=== PATIENT | male | born 1950 | race Caucasian/White ===

== ENCOUNTER → 2016-12-01 | Outpatient (CLI) | payer MEDICARE ==
[~2016-12-01] MED LIST: ALBU83IN INH; ASPI1TAB PO; DILA100C PO; DOCU10CA PO; DUONSOL INH; FLOM5CAP PO; IPRASOL4 IN; MOTR200T44 PO; MUCI600T34 PO; NYST50SS SS; OMNICEF PO; PRED10TA PO; PRED20TA PO; PRED20TAB PO; PROS5TAB PO; RANI15TA PO; TYLE325T5 PO; VALI10TA PO; VITA100037 PO; albuterol sulfate INH; albuterol sulfate NEB; symbicort INH; talwin PO
--- NOTE | 2016-12-01 10:22 | REP ---
ULTRASOUND ABDOMINAL AORTA: Real-time sonographic evaluation of the abdominal aorta performed. Maximum AP diameter proximally just below the diaphragms is 1.9 cm, at the level of the renal arteries 2.0 cm, mid aspect 2.6 cm and distally just above the bifurcation 1.5 cm. Right common iliac artery measures 0.9 x 1.5 cm, as does the left common iliac artery. There is moderate atherosclerotic calcification of the abdominal aorta. IMPRESSION: Ectasia of the mid to distal abdominal aorta without evidence of aneurysm. Atherosclerotic calcifications. Signed by Jeffrey Renteria MD 12/02/2016 04:35 P
== END ==
LOC: M RAD 08:50
PROVIDERS: ATTEND Family Medicine
DX: Z72.0 Tobacco use (principal)

== ENCOUNTER → 2017-02-22 | Outpatient (CLI) | payer MEDICARE ==
--- NOTE | 2017-02-22 10:54 | REP ---
Chest two views HISTORY: COPD Comparison: 01/28/2016 The lungs are hyperinflated. A diffuse increase in interstitial markings is present in the lungs. The heart is normal in size. The pulmonary vasculature is normal in appearance. The bony structure is intact. IMPRESSION: Chronic interstitial fibrosis.
== END ==
LOC: M CLY 10:00
PROVIDERS: ATTEND Nurse Practitioner
DX: J44.1 Chronic obstructive pulmonary disease with (acute) exacerbation (principal); J98.4 Other disorders of lung

== ENCOUNTER 2017-05-15 14:11 | Emergency (ER) | payer MEDICARE ==
[~2017-05-15] VITALS: Ht 175.3 cm; Wt 75.0 kg
[~2017-05-15 14:11] MED LIST changes: -MUCI600T34 PO; +MUCI600T37 PO; -VITA100037 PO; +VITA100067 PO
[2017-05-15 14:43] LABS: BASO # 0.1 K/mm3 (0.0-0.2); BASO % 1.1 % (0.0-1.0); EOS # 0.1 K/mm3 (0.0-0.50); EOS % 1.3 % (0.0-3.0); LARGE UNSTAINED CELL # 0.2 K/mm3 (0.0-0.4); LARGE UNSTAINED CELL % 2.2 % (0.0-4.0); LYMPH # 1.2 K/mm3 (1.5-4.5); LYMPH % 13.7 % (24.0-44.0); MEAN CORPUSCULAR HEMOGLOBIN 32.2 pg (27.0-33.0); MEAN CORPUSCULAR HGB CONC 34.7 g/dl (32.0-36.5); MEAN CORPUSCULAR VOLUME 92.6 fl (80.0-96.0); MONO # 0.6 K/mm3 (0.0-0.8); MONO % 7.3 % (0.0-5.0); NEUTROPHILS # 6.3 K/mm3 (1.8-7.7); NEUTROPHILS % 74.4 % (36.0-66.0); PLATELET COUNT, AUTOMATED 267 k/mm3 (150-450); RED CELL DISTRIBUTION WIDTH 12.9 % (11.5-14.5); WHITE BLOOD COUNT 8.4 K/mm3 (4.0-10.0)
[2017-05-15 14:46] LABS: INR 0.95
[2017-05-15] MEDS ORDERED: IPRATROPIUM 0.5MG/ALBUTEROL 2.5MG INH SOL UD 3ML (DUONEB)(J7620) NEB ONE (15:00)
[2017-05-15] MEDS ORDERED: ASPIRIN 81 MG CHEW TABLET PO ONE (15:00)
[2017-05-15 15:10] LABS: ALBUMIN 3.6 GM/DL (3.2-5.2); ALBUMIN/GLOBULIN RATIO 0.86 (1.00-1.93); ALKALINE PHOSPHATASE 148 U/L (45-117); ALT/SGPT 154 U/L (12-78); ANION GAP 8 MEQ/L (8-16); AST/SGOT 253 U/L (15-37); BILIRUBIN,DIRECT 0.2 MG/DL (0.0-0.2); BILIRUBIN,TOTAL 0.7 MG/DL (0.2-1.0); BLOOD UREA NITROGEN 13 MG/DL (7-18); CALCIUM LEVEL 9.2 MG/DL (8.8-10.2); CARBON DIOXIDE LEVEL 26 MEQ/L (21-32); CHLORIDE LEVEL 105 MEQ/L (98-107); CREATININE FOR GFR 0.87 MG/DL (0.70-1.30); FREE T4 1.26 NG/DL (0.76-1.46); GLOMERULAR FILTRATION RATE > 60.0 (>49); GLUCOSE, FASTING 151 MG/DL (80-110); POTASSIUM SERUM 4.7 MEQ/L (3.5-5.1); SODIUM LEVEL 139 MEQ/L (136-145); TOTAL PROTEIN 7.8 GM/DL (6.4-8.2)
[2017-05-15] MEDS: NITROGLYCERIN 0.4 MG SUBL TABLET SL PRN ×2 (15:14→15:20)
[2017-05-15 15:20] VITALS: BP 107/57
[2017-05-15] MEDS ORDERED: NS 500 ML IV ONE (15:30)
[2017-05-15] MEDS ORDERED: ISOVUE-370 76% 100ML VIAL (Q9967) As Ordered ONE (15:39)
[2017-05-15 16:09] VITALS: BP 139/92
[2017-05-15] MEDS ORDERED: CLOPIDOGREL 300 MG TAB (PLAVIX) PO ONE (16:15)
[2017-05-15] MEDS ORDERED: HEPARIN SOD (PORCINE) 5000 UNITS/ML VIAL IV ONE (16:30)
[2017-05-15] MEDS ORDERED: MORPHINE 2 MG/ML 1ML SYRINGE IV ONE (16:30)
[2017-05-15] MEDS ORDERED: HEPARIN DRIP 25,000 UNITS in APPROPRIATE DILUENT 1 EA IV SCH (16:45)
--- NOTE | 2017-05-16 11:51 | REP ---
CT CHEST WITH CONTRAST: HISTORY: Chest pain 3 weeks after a fall. Comparison chest CT study September 02, 2014. CT CONTRAST DOSE: 95 mL of Isovue 370 is administered intravenously. There is no evidence of pneumothorax or hydrothorax. The mediastinum shows no evidence of hematoma. The thoracic aorta shows atherosclerotic calcification and some plaquing but no aneurysm or dissection. Pulmonary arterial tree is unremarkable. The lungs are somewhat hyperinflated but clear. No infiltrate is seen. Oligemia is seen in the lower lobes bilaterally consistent with some degree of COPD. No pulmonary nodule, mass or infiltrate is seen. There is minimal linear fibrosis in the right lower lobe. Opaque gallstones are noted in the gallbladder. There is a gibbous deformity in the upper thoracic spine related to a wedge compression fracture deformity at the 4th thoracic vertebrae. This is an old finding and is unchanged from August 2014 prior study. There is retropulsion associated with this and mild narrowing of the central canal as a result but this is unchanged as well. No acute bony destructive lesion is seen. No acute rib fracture or other fracture is seen. IMPRESSION: 1. Evidence of COPD with oligemia and hyperlucency in the lower lobes. 2. Old wedge compression deformity at T4 with a thoracic gibbous as a result are unchanged. 3. No acute fracture. 4. Cholelithiasis 5. Otherwise no acute abnormality. Signed by Reji Auguste MD 05/16/2017 12:37 P
--- NOTE | 2017-05-16 12:03 | REP ---
LEFT SHOULDER: Three views. HISTORY: Left shoulder pain after fall. FINDINGS: There is AC joint osteoarthritis and mild inferior glenoid spurring is seen. There is dystrophic soft-tissue calcification in the periarticular soft tissues in the region of the rotator cuff consistent with calcific tendonitis or bursitis. No fracture or subluxation is seen. IMPRESSION: No traumatic abnormality noted. Osteoarthritis and periarticular soft-tissue calcification seen consistent with calcific tendonitis or bursitis. Signed by Reji Auguste MD 05/16/2017 12:38 P
--- NOTE | 2017-05-16 12:30 | REP ---
PORTABLE CHEST X-RAY: Single view. HISTORY: Chest pain. Comparison chest x-ray February 22, 2017. FINDINGS: The lungs are hyperinflated and remain clear. Cardiomediastinal silhouette is unremarkable. EKG electrodes are seen. Pulmonary vasculature is not increased. IMPRESSION: Hyperinflation consistent with COPD. Otherwise no acute disease. Signed by Reji Auguste MD 05/16/2017 12:40 P
--- NOTE | 2017-05-16 19:37 | ECGEPIP ---
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
== END 2017-05-15 17:02 | disposition short-term general hospital (02) ==
LOC: M ED 14:11
DX: I21.4 Non-ST elevation (NSTEMI) myocardial infarction (principal); J44.9 Chronic obstructive pulmonary disease, unspecified; Z72.0 Tobacco use; E78.00 Pure hypercholesterolemia, unspecified; F41.9 Anxiety disorder, unspecified; R56.9 Unspecified convulsions; R05 Cough; R06.2 Wheezing
CPT/HCPCS: 71010; 71260; 73030; 80048; 80076; 80185; 82550; 82553; 83690; 83880; 84439; 84443; 84484; 85025; 85610; 85730; 93005; 93041; 94640; 94760; 96361; 96374; 96375; 99285; Q9967

== ENCOUNTER → 2017-05-25 | Outpatient (REF) | payer MEDICARE ==
[2017-05-25 16:50] LABS: ANION GAP 8 MEQ/L (8-16); BLOOD UREA NITROGEN 19 MG/DL (7-18); CALCIUM LEVEL 9.7 MG/DL (8.8-10.2); CARBON DIOXIDE LEVEL 28 MEQ/L (21-32); CHLORIDE LEVEL 104 MEQ/L (98-107); CHOLESTEROL LEVEL 115 MG/DL (<200); CREATININE FOR GFR 1.07 MG/DL (0.70-1.30); GLOMERULAR FILTRATION RATE > 60.0 (>49); GLUCOSE, FASTING 150 MG/DL (80-110); POTASSIUM SERUM 4.7 MEQ/L (3.5-5.1); SODIUM LEVEL 140 MEQ/L (136-145); TRIGLYCERIDES LEVEL 95 MG/DL (<150)
== END ==
LOC: M SFHCCLAY 10:59
PROVIDERS: ATTEND Family Medicine
DX: I25.10 Atherosclerotic heart disease of native coronary artery without angina pectoris (principal); E78.00 Pure hypercholesterolemia, unspecified

== ENCOUNTER → 2017-06-08 | Outpatient (REF) | payer MEDICARE ==
[2017-06-08 12:09] LABS: ALBUMIN 3.5 GM/DL (3.2-5.2); ALKALINE PHOSPHATASE 124 U/L (45-117); ALT/SGPT 89 U/L (12-78); ANION GAP 10 MEQ/L (8-16); AST/SGOT 59 U/L (15-37); BILIRUBIN,TOTAL 0.4 MG/DL (0.2-1.0); BLOOD UREA NITROGEN 20 MG/DL (7-18); CARBON DIOXIDE LEVEL 28 MEQ/L (21-32); CHLORIDE LEVEL 104 MEQ/L (98-107); CREATININE FOR GFR 0.97 MG/DL (0.70-1.30); GLOMERULAR FILTRATION RATE > 60.0 (>49); GLUCOSE, FASTING 112 MG/DL (80-110); POTASSIUM SERUM 4.3 MEQ/L (3.5-5.1); SODIUM LEVEL 142 MEQ/L (136-145)
== END ==
LOC: M SFHCCLAY 09:06
PROVIDERS: ATTEND Family Medicine
DX: E78.00 Pure hypercholesterolemia, unspecified (principal); I25.10 Atherosclerotic heart disease of native coronary artery without angina pectoris

== ENCOUNTER 2017-06-13 09:48 | Outpatient (RCR) | payer MEDICARE | END 2017-06-25 | LOC: M PT 09:48 | PROVIDERS: ATTEND Physician Assistant Medical | DX: Z51.89 Encounter for other specified aftercare (principal); M79.669 Pain in unspecified lower leg | CPT/HCPCS: 97110; 97161; G8978; G8979; G8980 ==

== ENCOUNTER 2017-06-24 10:59 | Outpatient (RCR) | payer MEDICARE | END 2017-06-25 | LOC: M CR 10:59 | PROVIDERS: ATTEND Internal Medicine Cardiovascular Disease | DX: Z51.89 Encounter for other specified aftercare (principal); I21.4 Non-ST elevation (NSTEMI) myocardial infarction; I25.10 Atherosclerotic heart disease of native coronary artery without angina pectoris ==

== ENCOUNTER → 2017-07-06 | Outpatient (REF) | payer MEDICARE ==
[2017-07-06 13:16] LABS: ALBUMIN 3.5 GM/DL (3.2-5.2); ALBUMIN/GLOBULIN RATIO 1.09 (1.00-1.93); BILIRUBIN,DIRECT 0.2 MG/DL (0.0-0.2); BILIRUBIN,TOTAL 0.5 MG/DL (0.2-1.0); TOTAL PROTEIN 6.7 GM/DL (6.4-8.2)
== END ==
LOC: M SFHCCLAY 08:39
PROVIDERS: ATTEND Nurse Practitioner Family
DX: E78.00 Pure hypercholesterolemia, unspecified (principal)

== ENCOUNTER 2017-08-12 10:19 | Outpatient (RCR) | payer MEDICARE | END 2017-08-25 | LOC: M CR 10:19 | PROVIDERS: ATTEND Internal Medicine Cardiovascular Disease | DX: I21.4 Non-ST elevation (NSTEMI) myocardial infarction (principal); I25.10 Atherosclerotic heart disease of native coronary artery without angina pectoris ==

== ENCOUNTER → 2018-01-23 | Outpatient (REF) | payer MEDICARE ==
[2018-01-23 12:21] LABS: ALBUMIN 3.3 GM/DL (3.2-5.2); ALBUMIN/GLOBULIN RATIO 0.94 (1.00-1.93); ALKALINE PHOSPHATASE 155 U/L (45-117); ALT/SGPT 124 U/L (12-78); ANION GAP 6 MEQ/L (8-16); AST/SGOT 97 U/L (7-37); BILIRUBIN,TOTAL 0.5 MG/DL (0.2-1.0); BLOOD UREA NITROGEN 21 MG/DL (7-18); CALCIUM LEVEL 8.8 MG/DL (8.8-10.2); CARBON DIOXIDE LEVEL 28 MEQ/L (21-32); CHLORIDE LEVEL 108 MEQ/L (98-107); CHOLESTEROL LEVEL 109 MG/DL (<200); CHOLESTEROL RISK RATIO 3.406 (<5); GLOMERULAR FILTRATION RATE > 60.0 (>49); GLUCOSE, FASTING 117 MG/DL (70-100); HDL CHOLESTEROL 32 MG/DL (>40); LDL CHOLESTEROL 49.2 MG/DL (<100); NON-HDL-C 77 MG/DL; POTASSIUM SERUM 4.3 MEQ/L (3.5-5.1); SODIUM LEVEL 142 MEQ/L (136-145); TOTAL PROTEIN 6.8 GM/DL (6.4-8.2); TRIGLYCERIDES LEVEL 139 MG/DL (<150)
== END ==
LOC: M SFHCCLAY 09:23
DX: I25.10 Atherosclerotic heart disease of native coronary artery without angina pectoris (principal); E78.00 Pure hypercholesterolemia, unspecified
CPT/HCPCS: 80053

== ENCOUNTER → 2018-01-23 | Outpatient (REF) | payer MEDICARE | LOC: M LAB REF 11:53 | DX: J44.1 Chronic obstructive pulmonary disease with (acute) exacerbation (principal) | CPT/HCPCS: 87186; 87205 ==

== ENCOUNTER → 2018-10-30 | Outpatient (REF) | payer MEDICARE ==
[~2018-10-30] MED LIST changes: +FLOM0.4C39 PO; -FLOM5CAP PO; +IPRA0.00 IN; -IPRASOL4 IN
[2018-10-31 11:52] LABS: ALBUMIN 3.8 GM/DL (3.2-5.2); ALT/SGPT 108 U/L (12-78); BILIRUBIN,TOTAL 0.6 MG/DL (0.2-1.0); BLOOD UREA NITROGEN 13 MG/DL (7-18); CALCIUM LEVEL 9.1 MG/DL (8.8-10.2); CARBON DIOXIDE LEVEL 30 MEQ/L (21-32); CHLORIDE LEVEL 103 MEQ/L (98-107); CHOLESTEROL LEVEL 119 MG/DL (<200); CHOLESTEROL RISK RATIO 3.216 (<5); CREATININE FOR GFR 0.86 MG/DL (0.70-1.30); GLOMERULAR FILTRATION RATE > 60.0 (>49); GLUCOSE, FASTING 113 MG/DL (70-100); HDL CHOLESTEROL 37 MG/DL (>40); LDL CHOLESTEROL 62 MG/DL (<100); NON-HDL-C 82 MG/DL; POTASSIUM SERUM 4.4 MEQ/L (3.5-5.1); SODIUM LEVEL 138 MEQ/L (136-145); TOTAL PROTEIN 7.2 GM/DL (6.4-8.2); TRIGLYCERIDES LEVEL 100 MG/DL (<150)
== END ==
LOC: M SFHCCLAY 13:58
PROVIDERS: ATTEND Family Medicine
DX: I25.10 Atherosclerotic heart disease of native coronary artery without angina pectoris (principal); E78.00 Pure hypercholesterolemia, unspecified

== ENCOUNTER → 2018-12-06 | Outpatient (CLI) | payer MEDICARE | LOC: M SMT 10:42 | PROVIDERS: ATTEND Internal Medicine Cardiovascular Disease | DX: R07.9 Chest pain, unspecified (principal); I25.10 Atherosclerotic heart disease of native coronary artery without angina pectoris ==

== ENCOUNTER → 2019-01-01 | Outpatient (CLI) | payer MEDICARE ==
[~2019-01-01] MED LIST changes: -ASPI1TAB PO; +ASPI81TA26 PO; +PRED-351 PO; -PRED10TA PO
--- NOTE | 2019-01-01 15:51 | REP ---
CHEST, TWO VIEWS: PA and lateral views of the chest are performed and compared to prior studies dating back to 02/22/2017. There is scattered interstitial fibrotic change with mild hyperinflation. There is no acute infiltrate. Heart is normal in size. There is mild calcification and tortuosity of the thoracic aorta. Mediastinal silhouette is unchanged. There are degenerative changes of the spine. IMPRESSION: Mild diffuse interstitial fibrosis and hyperinflation. No acute infiltrate. If there is continued clinical concern, recommend CT of the chest to rule out occult lesion. Electronically Signed by Jeffrey Renteria MD 01/01/2019 06:20 P
== END ==
LOC: M SMT 11:18
PROVIDERS: ATTEND Internal Medicine Pulmonary Disease
DX: J84.10 Pulmonary fibrosis, unspecified (principal); R91.8 Other nonspecific abnormal finding of lung field

== ENCOUNTER → 2019-01-15 | Outpatient (CLI) | payer MEDICARE ==
[2019-01-15 18:18] LABS: BLOOD UREA NITROGEN 15 MG/DL (7-18); CREATININE FOR GFR 0.84 MG/DL (0.70-1.30); GLOMERULAR FILTRATION RATE > 60.0 (>49)
== END ==
LOC: M SMT 12:07
PROVIDERS: ATTEND Internal Medicine Pulmonary Disease
DX: Z01.812 Encounter for preprocedural laboratory examination (principal)

== ENCOUNTER → 2019-01-17 | Outpatient (CLI) | payer MEDICARE ==
[~2019-01-17] MED LIST changes: +ISOVUE-370 76% 100ML VIAL (Q9967) As Ordered ONE
--- NOTE | 2019-01-17 16:53 | REP ---
CT pulmonary angiogram: With IV contrast. History: Hemoptysis. Comparison studies: Comparison CT study May 15, 2017. Contrast dose: 75 ML of Isovue [address] technique: Helical scanning is acquired and overlapping 1.5 mm and contiguous 3 mm axial images are reformatted. In addition, maximum intensity projection and multiplanar re-formation images are generated in sagittal and coronal imaging projections. CT pulmonary angiographic findings: There is good opacification of the pulmonary arterial tree and there is no CT evidence of pulmonary embolism. Thoracic aorta shows no evidence of aneurysm or dissection. There is no hilar or mediastinal mass or adenopathy. No pleural or pericardial effusion is appreciated. Emphysematous changes with hyperlucency and oligemia are again noted in the lower lobes particularly. Right more so than left unchanged. There are scattered granulomatous calcifications in the lung parenchyma. No significant pulmonary nodule or mass lesion is appreciated. The there are some scattered areas of bronchial wall thickening consistent with bronchitis. There are linear fibrotic changes in the bases bilaterally. No bony destructive lesion is seen. An upper thoracic gibbous deformity is again seen about the compressed T4 vertebral body unchanged. Large gallstones are noted in the gallbladder as before. There are granulomatous calcifications in the spleen. No adrenal lesion is observed. Impression: No CT evidence of pulmonary embolus. Some areas of bronchial wall cuffing consistent with bronchitis. Emphysema COPD pattern is again seen unchanged. Granulomatous calcifications are noted as before. Gallstones are seen. Old upper thoracic gibbous associated with T4 wedge compression deformity. Electronically Signed by Reji Auguste MD 01/18/2019 08:56 A
== END ==
LOC: M RAD 14:46
PROVIDERS: ATTEND Internal Medicine Pulmonary Disease
DX: R04.2 Hemoptysis (principal); J44.9 Chronic obstructive pulmonary disease, unspecified
CPT/HCPCS: 71275; Q9967

== ENCOUNTER → 2019-05-02 | Outpatient (REF) | payer MEDICARE ==
[~2019-05-02] MED LIST changes: -ISOVUE-370 76% 100ML VIAL (Q9967) As Ordered ONE
[2019-05-03 13:59] LABS: BASO # 0.1 10^3/uL (0.0-0.2); BASO % 0.7 % (0.0-1.0); EOS # 0.2 10^3/uL (0.0-0.50); EOS % 2.2 % (0.0-3.0); HEMATOCRIT 46.8 % (42.0-52.0); HEMOGLOBIN 15.7 g/dl (13.5-17.5); LYMPH # 1.8 10^3/uL (1.5-4.5); LYMPH % 20.2 % (24.0-44.0); MEAN CORPUSCULAR HEMOGLOBIN 30.8 pg (27.0-33.0); MEAN CORPUSCULAR HGB CONC 33.5 g/dl (32.0-36.5); MEAN CORPUSCULAR VOLUME 91.9 fl (80.0-96.0); MONO # 0.8 10^3/uL (0.0-0.8); MONO % 9.3 % (0.0-5.0); NEUTROPHILS # 6.1 10^3/uL (1.8-7.7); NEUTROPHILS % 67.4 % (36.0-66.0); PLATELET COUNT, AUTOMATED 191 10^3/uL (150-450); RED BLOOD COUNT 5.09 10^6/uL (4.30-6.10)
[2019-05-03 14:22] LABS: ALBUMIN 3.6 GM/DL (3.2-5.2); ALT/SGPT 110 U/L (12-78); BILIRUBIN,TOTAL 0.5 MG/DL (0.2-1.0); BLOOD UREA NITROGEN 19 MG/DL (7-18); CALCIUM LEVEL 9.4 MG/DL (8.8-10.2); CARBON DIOXIDE LEVEL 30 MEQ/L (21-32); CHLORIDE LEVEL 104 MEQ/L (98-107); CREATININE FOR GFR 0.76 MG/DL (0.70-1.30); GLOMERULAR FILTRATION RATE > 60.0 (>49); GLUCOSE, FASTING 94 MG/DL (70-100); PHENYTOIN (DILANTIN) 5.2 UG/ML (10.0-20.0); POTASSIUM SERUM 5.5 MEQ/L (3.5-5.1); SODIUM LEVEL 138 MEQ/L (136-145); TOTAL PROTEIN 6.9 GM/DL (6.4-8.2)
== END ==
LOC: M SFHCCLAY 14:28
PROVIDERS: ATTEND Family Medicine
DX: G40.909 Epilepsy, unspecified, not intractable, without status epilepticus (principal)

== ENCOUNTER → 2019-06-04 | Outpatient (CLI) | payer MEDICARE ==
[~2019-06-04] MED LIST changes: +ISOVUE-370 76% 100ML VIAL (Q9967) As Ordered ONE
--- NOTE | 2019-06-04 13:54 | REP ---
CT of the head without and with contrast Indication: Vertigo. Comparison: None Technique: Axial CT of the head was performed without contrast. Following the uneventful intravenous administration of 75 ml Isovue 370, axial CT of the head was performed with contrast. Findings: There is scalp thickening at the vertex on the left posteriorly. There is no calvarial fracture. There is no evidence of acute intracranial hemorrhage or extra-axial fluid collection. Renteria-white matter differentiation is maintained. There are calcifications of the cavernous carotid arteries. There is no mass effect or midline shift. The basal cisterns are patent. There is prominence of the extra-axial spaces, suggestive of cerebral volume loss. There is no hydrocephalus. There is no abnormal enhancement. The visualized paranasal sinuses and mastoid air cells are clear. Note is made of old fracture deformity of the lateral wall of the right orbit, right lamina papyracea and right nasal bone. 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 The left orbit is unremarkable. Impression: No abnormal enhancement to suggest an intracranial mass. No mass effect, acute intracranial hemorrhage or hydrocephalus. Old fracture deformities of the lateral wall right orbit, right nasal bone and the right lamina papyracea and right ocular globe prosthesis. Left posterior scalp thickening. Electronically Signed by Alexandru Hood MD 06/04/2019 01:46 P
== END ==
LOC: M RAD 12:52
PROVIDERS: ATTEND Family Medicine
DX: R42 Dizziness and giddiness (principal)
CPT/HCPCS: 70470; Q9967

== ENCOUNTER → 2019-06-25 | Outpatient (REF) | payer MEDICARE ==
[~2019-06-25] MED LIST changes: +CLOP75TA2; -ISOVUE-370 76% 100ML VIAL (Q9967) As Ordered ONE
[2019-06-25 18:00] LABS: BLOOD UREA NITROGEN 14 MG/DL (7-18); CREATININE FOR GFR 0.94 MG/DL (0.70-1.30); GLOMERULAR FILTRATION RATE > 60.0 (>49)
== END ==
LOC: M LABDRAWC 16:07
PROVIDERS: ATTEND Psychiatry & Neurology Neurology
DX: I10 Essential (primary) hypertension (principal)

== ENCOUNTER → 2019-06-27 | Outpatient (CLI) | payer MEDICARE ==
[~2019-06-27] MED LIST changes: -CLOP75TA2; +ISOVUE-370 76% 100ML VIAL (Q9967) As Ordered ONE
--- NOTE | 2019-06-27 17:00 | REP ---
CT angiography of the brain with IV contrast: History: Central origin vertigo. Comparison head CT study June 04, 2019. CT contrast dose: 100 ml of intravenous Isovue 370 is administered. Technique: Helical scanning is acquired. 2 mm high resolution axial images are reformatted. Coronal and sagittal MPR and MIP images are generated and reviewed along with surface rendered 3-D rotational angiography display. CT angiographic findings: Incidental note is made of old post-traumatic deformity of the right face and orbit. There is an intra orbital ocular globe prosthesis present on the right. These findings were described previously. An old nasal bone fracture is seen. No acute bony calvarial abnormality is observed. The distal vertebral arteries are widely patent. Basilar artery is unremarkable. Posterior cerebral and superior cerebellar arteries are normal and symmetric. The distal internal carotid arteries are unremarkable. Minimal vascular calcification is present bilaterally in the carotid siphons. The anterior and middle cerebral arteries are intact. There is no evidence of grady aneurysm or arteriovenous malformation. Surface rendered images show no additional abnormality. The dural sinuses are unremarkable and widely patent. Impression: Mild vascular calcification in the carotid siphons. Otherwise negative CT angiography of the brain with IV contrast. Electronically Signed by Reji Auguste MD 06/28/2019 07:59 A
--- NOTE | 2019-06-27 17:04 | REP ---
CT angiography of the neck with IV contrast: History: Central origin vertigo. CT contrast dose: 100 ml of intravenous Isovue 370. Technique: Helical scanning is acquired and 2 mm axial images are generated. Coronal and sagittal MIP and MPR images are generated and 3-D surface rendered images are generated and viewed in a rotational pattern. CT angiographic findings: There is atherosclerotic plaquing in the thoracic aorta. The innominate artery origin is excluded from the field of view but great vessel origins are otherwise intact in appearance. Vertebral artery origins are unremarkable. The cervical segments of the vertebral arteries are codominant and widely patent. The distal vertebral arteries are unremarkable. Common carotid arteries are intact. There is no significant plaquing or narrowing in the proximal ICA on either side. The cervical segments of the internal carotid arteries are unremarkable. Maximal intensity projection and MPR images show no additional finding. Surface rendered 3-D images show no additional abnormality. Impression: Unremarkable CT angiography of the neck and carotids. Electronically Signed by Reji Auguste MD 06/28/2019 07:59 A
== END ==
LOC: M RAD 13:01
PROVIDERS: ATTEND Psychiatry & Neurology Neurology
DX: H81.4 Vertigo of central origin (principal); I70.0 Atherosclerosis of aorta
CPT/HCPCS: 70496; 70498; Q9967

== ENCOUNTER 2019-09-18 12:14 | Emergency (ER) | payer MEDICARE ==
[~2019-09-18] VITALS: Ht 177.8 cm; Wt 66.8 kg
[~2019-09-18 12:14] MED LIST changes: -ISOVUE-370 76% 100ML VIAL (Q9967) As Ordered ONE
[2019-09-18] MEDS ORDERED: CLOP75TA2 (12:20)
--- NOTE | 2019-09-18 12:51 | REP ---
Clinical: Chest pain . Comparison: 01/01/2019 . Findings: The mediastinum and cardiac silhouette are stable and within normal limits for portable technique. The lung vazquez demonstrate chronic COPD and interstitial changes without acute consolidation, effusion, or pneumothorax. Skeletal structures are intact. Impression: No acute cardiopulmonary process appreciated. Electronically Signed by Nikhil Henry MD 09/18/2019 12:41 P
[2019-09-18] MEDS ORDERED: dexameTHASONE 20 MG/5 ML VIAL (J1100) IV ONE (13:00)
[2019-09-18 13:23] LABS: VENOUS HCO3 28.7 MEQ/L (23.0-27.0); VENOUS PARTIAL PRESSURE CO2 57.7 mmHg (38.0-50.0); VENOUS PH 7.314 UNITS (7.330-7.430); VENOUS STANDARD HCO3 24.7 MEQ/L; VENOUS TOTAL CO2 30.4 MEQ/L (24.0-28.0)
[2019-09-18 13:26] LABS: BASO # 0.1 10^3/uL (0.0-0.2); BASO % 0.9 % (0.0-1.0); EOS # 0.2 10^3/uL (0.0-0.5); EOS % 3.9 % (0.0-3.0); HEMATOCRIT 45.9 % (42.0-52.0); HEMOGLOBIN 15.1 g/dl (13.5-17.5); LYMPH # 1.5 10^3/uL (1.5-5.0); LYMPH % 24.8 % (24.0-44.0); MEAN CORPUSCULAR HEMOGLOBIN 31.6 pg (27.0-33.0); MEAN CORPUSCULAR HGB CONC 32.9 g/dl (32.0-36.5); MONO # 0.8 10^3/uL (0.0-0.8); MONO % 13.1 % (0.0-5.0); NEUTROPHILS # 3.4 10^3/uL (1.5-8.5); PLATELET COUNT, AUTOMATED 155 10^3/uL (150-450); RED BLOOD COUNT 4.78 10^6/uL (4.30-6.10); WHITE BLOOD COUNT 5.9 10^3/uL (4.0-10.0)
[2019-09-18] MEDS: IPRATROPIUM 0.5MG/ALBUTEROL 2.5MG INH SOL UD 3ML (DUONEB)(J7620) NEB SCH ×3 (13:34→14:42)
[2019-09-18 13:54] LABS: INR 1.08; PROTHROMBIN TIME 13.8 SECONDS (11.8-14.0)
[2019-09-18 13:55] LABS: PARTIAL THROMBOPLASTIN TIME 33.9 SECONDS (25.0-38.4)
[2019-09-18 13:57] LABS: D-DIMER QUANT 808.17 ng/ml (<500)
[2019-09-18 14:03] LABS: ALBUMIN 3.3 GM/DL (3.2-5.2); ALT/SGPT 106 U/L (12-78); BILIRUBIN,DIRECT < 0.1 MG/DL (0.0-0.2); BILIRUBIN,TOTAL 0.3 MG/DL (0.2-1.0); BLOOD UREA NITROGEN 22 MG/DL (7-18); CALCIUM LEVEL 8.9 MG/DL (8.8-10.2); CARBON DIOXIDE LEVEL 26 MEQ/L (21-32); CHLORIDE LEVEL 108 MEQ/L (98-107); CK-MB VALUE MASS 2.5 NG/ML (<3.6); CPK CREATINE PHOSPHOKINASE 140 U/L (39-308); CREATININE FOR GFR 0.83 MG/DL (0.70-1.30); FREE T4 1.11 NG/DL (0.76-1.46); GLOMERULAR FILTRATION RATE > 60.0 (>49); GLUCOSE, FASTING 106 MG/DL (70-100); LIPASE < 10 U/L (73-393); MB/CK RELATIVE INDEX 1.79 (< OR =4); SODIUM LEVEL 141 MEQ/L (136-145); THYROID STIMULATING HORMONE 0.576 uIU/ML (0.358-3.740); TROPONIN I < 0.02 NG/ML (< 0.10)
[2019-09-18 14:06] LABS: POTASSIUM SERUM 5.8 MEQ/L (3.5-5.1)
[2019-09-18] MEDS ORDERED: LevoFLOXacin IV 750 MG in IV 1 EA IV ONE (14:15)
[2019-09-18] MEDS ORDERED: NS 1,000 ML IV ONE (14:15)
[2019-09-18] MEDS ORDERED: ISOVUE-370 76% 100ML VIAL (Q9967) As Ordered ONE (14:42)
--- NOTE | 2019-09-18 15:36 | REP ---
Clinical: Acute chest pain with shortness of breath and elevated D-dimer levels. Comparison: 01/17/2019. Technique: Axial contrast enhanced images from the thoracic inlet to the upper abdomen using 100 ml Isovue 370 intravenous contrast material with coronal and sagittal re-formations. Findings: Satisfactory enhancement of the pulmonary vasculature is achieved and no filling defects are identified to suggest pulmonary embolus. Thoracic aorta demonstrates atherosclerotic changes without aneurysm or dissection. No cardiomegaly or pericardial effusion. Bilateral lung vazquez demonstrate moderate to advanced COPD/emphysematous changes primarily involving the bilateral lower lobes (right greater than left). No acute consolidation. No obvious nodule or mass lesion. No effusion. No pneumothorax. Tracheobronchial tree is patent. No obvious adenopathy. Musculoskeletal structures are stable and chronic compression deformity at T4 causing acute kyphosis is again noted. Limited upper abdomen demonstrates normal bilateral adrenal glands and cholelithiasis. Impression: No evidence for pulmonary embolus. Advanced COPD/emphysematous disease. No acute pleuroparenchymal process appreciated. Electronically Signed by Nikhil Henry MD 09/18/2019 03:27 P
[2019-09-18] MEDS ORDERED: KETOROLAC 30 MG/ML VIAL (J1885) IV ONE (16:15)
[2019-09-18] MEDS ORDERED: PRED20TA PO (17:55)
[2019-09-18] MEDS ORDERED: predniSONE 20 MG TAB PO ONE (18:00)
[2019-09-18 18:02] VITALS: BP 153/73
--- NOTE | 2019-09-18 20:31 | ECGEPIP ---
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
== END 2019-09-18 18:15 | disposition home or self-care (01) ==
LOC: M ED 12:14
DX: J44.1 Chronic obstructive pulmonary disease with (acute) exacerbation (principal); K21.9 Gastro-esophageal reflux disease without esophagitis; Z79.51 Long term (current) use of inhaled steroids; Z79.82 Long term (current) use of aspirin; Z79.899 Other long term (current) drug therapy; Z88.1 Allergy status to other antibiotic agents; Z88.5 Allergy status to narcotic agent; Z88.8 Allergy status to other drugs, medicaments and biological substances
CPT/HCPCS: 36415; 71045; 71275; 80048; 80076; 82550; 82553; 82803; 83605; 83690; 84439; 84443; 84484; 85025; 85379; 85610; 85730; 87040; 93005; 93041; 94640; 96365; 96366; 96375; 99285; J1100; J1885; J1956; Q9967

== ENCOUNTER → 2019-12-12 | Outpatient (REF) | payer MEDICARE ==
[~2019-12-12] MED LIST changes: +CLOP75TA2
== END ==
LOC: M SFHCCLAY 14:55
PROVIDERS: ATTEND Family Medicine
DX: J44.1 Chronic obstructive pulmonary disease with (acute) exacerbation (principal)
CPT/HCPCS: 87070; 87077; 87205; G0463

== ENCOUNTER → 2020-02-08 | Outpatient (REF) | payer MEDICARE | LOC: M SFHCCLAY 13:34 | PROVIDERS: ATTEND Family Medicine | DX: R05 Cough (principal); Z11.59 Encounter for screening for other viral diseases ==

== ENCOUNTER → 2020-02-08 | Outpatient (CLI) | payer MEDICARE | LOC: M CLY 14:25 | PROVIDERS: ATTEND Family Medicine | DX: J44.9 Chronic obstructive pulmonary disease, unspecified (principal) ==

== ENCOUNTER → 2020-02-08 | Outpatient (CLI) | payer MEDICARE ==
--- NOTE | 2020-02-08 16:53 | REP ---
CHEST, TWO VIEWS: Two views of the chest are performed and compared to prior studies, most recently 09/18/2019 and 01/01/2019. There is mild hyperinflation and diffuse interstitial fibrosis, which appears stable. No acute infiltrate is seen. Heart is normal in size, and there is mild calcification of the thoracic aorta. Mediastinal silhouette is unchanged. There is diffuse osteopenia and mild degenerative changes of the spine. A severe compression deformity of an upper thoracic vertebral body is stable with mild acute thoracic kyphosis at that level. IMPRESSION: Stable, chronic changes, as above. Electronically Signed by Jeffrey Renteria MD 02/08/2020 04:57 P
== END ==
LOC: M CLY 14:32
PROVIDERS: ATTEND Family Medicine
DX: J44.9 Chronic obstructive pulmonary disease, unspecified (principal); M85.88 Other specified disorders of bone density and structure, other site

== ENCOUNTER → 2020-02-11 | Outpatient (CLI) | payer MEDICARE ==
--- NOTE | 2020-02-11 17:22 | REP ---
REASON: Tobacco abuse. All prior CT examinations of the chest have been reviewed dating as far back as 09/02/2014. Latest prior examination is from 09/18/2019. That examination is a contrast-enhanced CT angio chest. As per the protocol, only lung window images were sent to the read station for interpretation. Note is again made of lung field hyperexpansion. Note is again made of an incidental calcified granuloma in the inferior lingula. 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 This too appears unchanged. Limited evaluation of the mediastinum and pulmonary gema show no significant change. Limited evaluation of the upper abdomen and imaged osseous structures show no significant changes. There is a small amount of mucoid debris seen in the left main bronchus, likely mucus. This was seen to a much lesser degree in the posterior trachea. IMPRESSION: Chronic changes as described above. No significant change from the prior exams. Lung-RADS category 2. Electronically Signed by Don Roman DO 02/12/2020 02:25 P
== END ==
LOC: M RAD 15:08
PROVIDERS: ATTEND Internal Medicine Pulmonary Disease
DX: Z12.2 Encounter for screening for malignant neoplasm of respiratory organs (principal); F17.210 Nicotine dependence, cigarettes, uncomplicated; J44.9 Chronic obstructive pulmonary disease, unspecified; J84.10 Pulmonary fibrosis, unspecified

== ENCOUNTER → 2020-02-13 | Outpatient (REF) | payer MEDICARE ==
[2020-02-14 12:29] LABS: ALBUMIN 3.7 GM/DL (3.2-5.2); ALT/SGPT 139 U/L (12-78); BILIRUBIN,TOTAL 0.8 MG/DL (0.2-1.0); BLOOD UREA NITROGEN 27 MG/DL (7-18); CALCIUM LEVEL 9.5 MG/DL (8.8-10.2); CARBON DIOXIDE LEVEL 29 MEQ/L (21-32); CHLORIDE LEVEL 101 MEQ/L (98-107); CHOLESTEROL LEVEL 141 MG/DL (<200); CHOLESTEROL RISK RATIO 2.274 (<5); CREATININE FOR GFR 0.86 MG/DL (0.70-1.30); GLOMERULAR FILTRATION RATE > 60.0 (>49); GLUCOSE, FASTING 139 MG/DL (70-100); HDL CHOLESTEROL 62 MG/DL (>40); LDL CHOLESTEROL 61 MG/DL (<100); NON-HDL-C 79 MG/DL; PHENYTOIN (DILANTIN) 4.4 UG/ML (10.0-20.0); POTASSIUM SERUM 5.4 MEQ/L (3.5-5.1); SODIUM LEVEL 136 MEQ/L (136-145); TOTAL PROTEIN 7.4 GM/DL (6.4-8.2); TRIGLYCERIDES LEVEL 92 MG/DL (<150)
== END ==
LOC: M SFHCCLAY 14:24
PROVIDERS: ATTEND Family Medicine
DX: G40.909 Epilepsy, unspecified, not intractable, without status epilepticus (principal); I25.10 Atherosclerotic heart disease of native coronary artery without angina pectoris

== ENCOUNTER → 2020-03-17 | Outpatient (CLI) | payer MEDICARE | LOC: M PT 10:53 | PROVIDERS: ATTEND Family Medicine | DX: Z89.612 Acquired absence of left leg above knee (principal) ==

== ENCOUNTER → 2020-11-03 | Outpatient (REF) | payer MEDICARE | LOC: M LAB REF 17:22 | PROVIDERS: ATTEND Internal Medicine Pulmonary Disease | DX: J43.8 Other emphysema (principal) ==

== ENCOUNTER → 2020-12-03 | Outpatient (CLI) | payer MEDICARE ==
--- NOTE | 2020-12-03 10:00 | REPPI ---
INDICATION: J44.9 CHRONOC OBSTRUCTIVE PULMONARY DISEASE COMPARISON: 02/08/2020 TECHNIQUE: PA and lateral. FINDINGS: The mediastinum and cardiac silhouette are normal. The lung vazquez demonstrate chronic stable changes consistent with COPD. The skeletal structures demonstrate osteopenia and degenerative changes. IMPRESSION: COPD. Chronic stable changes. <Electronically signed by Nikhil Henry > 12/03/20 [id number]
== END ==
LOC: M PLAIMG 09:20
PROVIDERS: ATTEND Internal Medicine Pulmonary Disease
DX: J44.9 Chronic obstructive pulmonary disease, unspecified (principal)

== ENCOUNTER → 2020-12-25 | Outpatient (REF) | payer MEDICARE | LOC: M PLALAB 13:16 | PROVIDERS: ATTEND Urology | DX: R39.9 Unspecified symptoms and signs involving the genitourinary system (principal); Z12.5 Encounter for screening for malignant neoplasm of prostate | CPT/HCPCS: 36415; G0103 ==

== ENCOUNTER → 2021-04-15 | Outpatient (CLI) | payer MEDICARE ==
[~2021-04-15] MED LIST changes: +ALBU8.5H INH; +FLUT1BLS8 INH
== END ==
LOC: M LABSMTC 12:29
PROVIDERS: ATTEND Anesthesiology
DX: Z01.812 Encounter for preprocedural laboratory examination (principal); Z20.822 Contact with and (suspected) exposure to COVID-19

== ENCOUNTER 2021-04-20 06:09 | Day surgery (SDC) | payer MEDICARE ==
[~2021-04-20] VITALS: Ht 177.8 cm; Wt 70.7 kg
[2021-04-20] MEDS ORDERED: LIDOCAINE 1% SDV 5ML VIAL As Ordered ONE (06:54)
[2021-04-20] MEDS ORDERED: FLURBIPROFEN 0.03% OPHTH SOLN 2.5 ML OS ONE (07:00)
[2021-04-20] MEDS ORDERED: CYCLOPENTOLATE 1% OPHTH SOLN 2 ML BTL OD ONE (07:00)
[2021-04-20] MEDS ORDERED: LR 1,000 ML IV SCH (07:00)
[2021-04-20] MEDS ORDERED: PHENYLEPHRINE 2.5% OPHTH SOL 2ML OS ONE (07:00)
[2021-04-20] MEDS ORDERED: TETRACAINE 0.5% OPHTH SOLN 4ML OS ONE (07:00)
[2021-04-20] MEDS ORDERED: BALANCED SALT IRRIGATION SOLUTION 500ML BAG (FOR OR EYE MACHINE) As Ordered ONE (07:08)
[2021-04-20] MEDS ORDERED: CYCLOPENTOLATE 1% OPHTH SOLN 2 ML BTL OS ONE (07:20)
[2021-04-20] MEDS ORDERED: MIDAZOLAM INJ 2MG/2ML VIAL (J2250 PER 1MG) As Ordered ONE (08:36)
[2021-04-20] MEDS ORDERED: fentaNYL 100 MCG/2 ML INJECTION As Ordered ONE (08:36)
[2021-04-20 09:02] VITALS: BP 143/74
== END 2021-04-20 09:28 | disposition home or self-care (01) ==
LOC: M SDC 06:09
PROVIDERS: ATTEND Ophthalmology
DX: H25.12 Age-related nuclear cataract, left eye (principal); I10 Essential (primary) hypertension; E78.00 Pure hypercholesterolemia, unspecified; I25.2 Old myocardial infarction; Z95.5 Presence of coronary angioplasty implant and graft; K21.9 Gastro-esophageal reflux disease without esophagitis; M19.90 Unspecified osteoarthritis, unspecified site; Z97.0 Presence of artificial eye; R56.9 Unspecified convulsions; J44.9 Chronic obstructive pulmonary disease, unspecified; G89.21 Chronic pain due to trauma; I25.10 Atherosclerotic heart disease of native coronary artery without angina pectoris; N40.0 Benign prostatic hyperplasia without lower urinary tract symptoms; F17.210 Nicotine dependence, cigarettes, uncomplicated; Z88.1 Allergy status to other antibiotic agents; Z88.5 Allergy status to narcotic agent; Z88.2 Allergy status to sulfonamides; Z79.899 Other long term (current) drug therapy; Z79.02 Long term (current) use of antithrombotics/antiplatelets; Z79.82 Long term (current) use of aspirin; Z79.891 Long term (current) use of opiate analgesic; Z79.52 Long term (current) use of systemic steroids; Z79.51 Long term (current) use of inhaled steroids
CPT/HCPCS: 66984; J2250; J3010; V2632

== ENCOUNTER → 2021-07-30 | Outpatient (CLI) | payer MEDICARE ==
--- NOTE | 2021-07-30 12:05 | REP ---
INDICATION: NICOTINE. COMPARISON: Multiple the latest 02/11/2020 also low-dose screening CT of the lungs TECHNIQUE: Axial noncontrast images from the thoracic inlet to the upper abdomen using low-dose lung screening technique (LDCT). As per the protocol only lung window images were sent to the read station for interpretation. FINDINGS: There are emphysematous changes status quo. There is lung field hyperexpansion status quo. There is cylindrical bronchiectasis status quo. There are no new abnormal nodules. There is a new bandlike density in the inferior right middle lobe abutting the major fissure. IMPRESSION: 1. Stable chronic lung field changes as described above without evidence of a new nodule. 2. New bandlike density in the right middle lobe likely representing fibrotic and/or subsegmental atelectatic change. There is no revised Fleischner society criteria on the recommendation for follow-up of such a finding. Consider short-term follow-up since this represents a change from the prior exams. <Electronically signed by Don Roman > 07/30/21 [id number]
== END ==
LOC: M RAD 10:57
PROVIDERS: ATTEND Internal Medicine Pulmonary Disease
DX: Z87.891 Personal history of nicotine dependence (principal); R91.8 Other nonspecific abnormal finding of lung field

== ENCOUNTER → 2021-09-11 | Outpatient (CLI) | payer MEDICARE | LOC: M CLY 14:21 | PROVIDERS: ATTEND Physician Assistant | DX: R05.9 Cough, unspecified (principal); S22.32XA Fracture of one rib, left side, initial encounter for closed fracture; X58.XXXA Exposure to other specified factors, initial encounter; Y92.9 Unspecified place or not applicable; Y93.9 Activity, unspecified ==

== ENCOUNTER → 2021-09-22 | Outpatient (CLI) | payer MEDICARE | LOC: M CLY 11:01 | PROVIDERS: ATTEND Family Medicine | DX: R05.9 Cough, unspecified (principal); S22.42XA Multiple fractures of ribs, left side, initial encounter for closed fracture ==

== ENCOUNTER → 2022-03-01 | Outpatient (REF) | payer MEDICARE ==
[~2022-03-01] MED LIST changes: +ALBU2.5V10 INH; -ALBU83IN INH
[2022-03-01 16:05] LABS: ALBUMIN 3.1 GM/DL (3.2-5.2); ALT/SGPT 42 U/L (12-78); BILIRUBIN,TOTAL 0.5 MG/DL (0.2-1.0); BLOOD UREA NITROGEN 14 MG/DL (7-18); CALCIUM LEVEL 9.1 MG/DL (8.8-10.2); CARBON DIOXIDE LEVEL 32 MEQ/L (21-32); CHLORIDE LEVEL 104 MEQ/L (98-107); CHOLESTEROL LEVEL 116 MG/DL (<200); CHOLESTEROL RISK RATIO 2.697 (<5); CREATININE FOR GFR 0.98 MG/DL (0.70-1.30); GLOMERULAR FILTRATION RATE > 60.0 (>42); GLUCOSE, FASTING 131 MG/DL (70-100); HDL CHOLESTEROL 43 MG/DL (>40); LDL CHOLESTEROL 49 MG/DL (<100); NON-HDL-C 73 MG/DL; POTASSIUM SERUM 4.1 MEQ/L (3.5-5.1); SODIUM LEVEL 139 MEQ/L (136-145); TOTAL PROTEIN 6.8 GM/DL (6.4-8.2); TRIGLYCERIDES LEVEL 118 MG/DL (<150)
[2022-03-01 16:07] LABS: HEMOGLOBIN 15.9 g/dl (13.5-17.5); MEAN CORPUSCULAR HEMOGLOBIN 30.8 pg (27.0-33.0); MEAN CORPUSCULAR HGB CONC 33.1 g/dl (32.0-36.5); PLATELET COUNT, AUTOMATED 217 10^3/uL (150-450); RED BLOOD COUNT 5.16 10^6/uL (4.30-6.10); WHITE BLOOD COUNT 6.5 10^3/uL (4.0-10.0)
== END ==
LOC: M SFHCCLAY 09:48
PROVIDERS: ATTEND Nurse Practitioner Family
DX: Z00.00 Encounter for general adult medical examination without abnormal findings (principal); E78.00 Pure hypercholesterolemia, unspecified

== ENCOUNTER → 2022-03-01 | Outpatient (CLI) | payer MEDICARE | LOC: M CLY 09:55 | PROVIDERS: ATTEND Nurse Practitioner Family | DX: R29.6 Repeated falls (principal) ==

== ENCOUNTER → 2022-06-09 | Outpatient (REF) | payer MEDICARE ==
[2022-06-09 20:05] LABS: HEMOGLOBIN A1c 5.8 %
== END ==
LOC: M SFHCCLAY 14:11
PROVIDERS: ATTEND Nurse Practitioner Family
DX: Z13.1 Encounter for screening for diabetes mellitus (principal); Z79.899 Other long term (current) drug therapy

== ENCOUNTER → 2022-08-02 | Outpatient (CLI) | payer MEDICARE | LOC: M RAD 13:41 | PROVIDERS: ATTEND Internal Medicine Pulmonary Disease | DX: Z12.2 Encounter for screening for malignant neoplasm of respiratory organs (principal); Z87.891 Personal history of nicotine dependence; R91.8 Other nonspecific abnormal finding of lung field ==

== ENCOUNTER → 2022-09-06 | Outpatient (CLI) | payer MEDICARE | LOC: M PLARAD 08:02 | PROVIDERS: ATTEND Internal Medicine Pulmonary Disease | DX: R91.8 Other nonspecific abnormal finding of lung field (principal) ==

== ENCOUNTER → 2022-10-04 | Outpatient (REF) | payer MEDICARE ==
[~2022-10-04] MED LIST changes: +NYST-38 SS; -NYST50SS SS
[2022-10-04 11:56] LABS: HEMATOCRIT 46.5 % (42.0-52.0); HEMOGLOBIN 15.3 g/dl (13.5-17.5); MEAN CORPUSCULAR HGB CONC 32.9 g/dl (32.0-36.5); MEAN CORPUSCULAR VOLUME 94.3 fl (80.0-96.0); PLATELET COUNT, AUTOMATED 177 10^3/uL (150-450); RED BLOOD COUNT 4.93 10^6/uL (4.30-6.10); WHITE BLOOD COUNT 6.1 10^3/uL (4.0-10.0)
[2022-10-04 12:26] LABS: ALBUMIN 3.5 G/DL (3.2-5.2); ALKALINE PHOSPHATASE 159 U/L (46-116); ALT/SGPT 61 U/L (7.0-40); AST/SGOT 54 U/L (<34); BILIRUBIN,TOTAL 0.3 MG/DL (0.3-1.2); BLOOD UREA NITROGEN 20 MG/DL (9-23); CALCIUM LEVEL 9.4 MG/DL (8.3-10.6); CARBON DIOXIDE LEVEL 30 MMOL/L (20-31); CHLORIDE LEVEL 102 MMOL/L (98-107); CHOLESTEROL LEVEL 115 MG/DL (<200); CHOLESTEROL RISK RATIO 3.02 (<5); CREATININE FOR GFR 0.82 MG/DL (0.70-1.30); GLOMERULAR FILTRATION RATE > 60.0 (>42); GLUCOSE, FASTING 127 MG/DL (74-106); LDL CHOLESTEROL 53.2 MG/DL (<100); NON-HDL-C 77 MG/DL; POTASSIUM SERUM 4.1 MMOL/L (3.5-5.1); SODIUM LEVEL 139 MMOL/L (136-145); TOTAL PROTEIN 7.1 G/DL (5.7-8.2); TRIGLYCERIDES LEVEL 119 MG/DL (<150)
== END ==
LOC: M SFHCCLAY 08:09
PROVIDERS: ATTEND Nurse Practitioner Family
DX: I25.10 Atherosclerotic heart disease of native coronary artery without angina pectoris (principal); E78.00 Pure hypercholesterolemia, unspecified

== ENCOUNTER → 2022-10-06 | Outpatient (CLI) | payer MEDICARE | LOC: M CLY 15:16 | PROVIDERS: ATTEND Nurse Practitioner Family | DX: J44.1 Chronic obstructive pulmonary disease with (acute) exacerbation (principal) ==

== ENCOUNTER 2022-12-11 13:18 | Inpatient (IN) | payer MEDICARE ==
[~2022-12-11] VITALS: Ht 177.8 cm; Wt 70.0 kg
[2022-12-11 14:10] LABS: VENOUS BASE EXCESS 1.3 (-2.0-2.0); VENOUS HCO3 27.3 MEQ/L (23.0-27.0); VENOUS O2 SATURATION 95.9 % (60.0-80.0); VENOUS PARTIAL PRESSURE CO2 47.8 mmHg (38.0-50.0); VENOUS PARTIAL PRESSURE O2 80.9 mmHg (30.0-50.0); VENOUS PH 7.374 UNITS (7.330-7.430); VENOUS STANDARD HCO3 25.5 MEQ/L; VENOUS TOTAL CO2 28.7 MEQ/L (24.0-28.0)
[2022-12-11 14:21] LABS: BASO % 0.4 % (0.0-1.0); EOS % 0.1 % (0.0-3.0); HEMATOCRIT 46.8 % (42.0-52.0); HEMOGLOBIN 15.6 g/dl (13.5-17.5); LYMPH # 1.3 10^3/uL (1.5-5.0); LYMPH % 15.3 % (24.0-44.0); MEAN CORPUSCULAR HEMOGLOBIN 30.9 pg (27.0-33.0); MEAN CORPUSCULAR HGB CONC 33.3 g/dl (32.0-36.5); MEAN CORPUSCULAR VOLUME 92.7 fl (80.0-96.0); MONO # 1.3 10^3/uL (0.0-0.8); MONO % 15.8 % (2.0-8.0); NEUTROPHILS # 5.6 10^3/uL (1.5-8.5); PLATELET COUNT, AUTOMATED 147 10^3/uL (150-450); RED BLOOD COUNT 5.05 10^6/uL (4.30-6.10); WHITE BLOOD COUNT 8.2 10^3/uL (4.0-10.0)
[2022-12-11] MEDS: COMBIVENT RESPIMAT 100-20MCG INHALER 4GM INH SCH ×3 (14:22→14:34)
[2022-12-11 14:50] LABS: RSV AMPLIFICATION NEGATIVE (NEGATIVE)
[2022-12-11 15:58] LABS: ALBUMIN 3.6 G/DL (3.2-5.2); ALKALINE PHOSPHATASE 92 U/L (46-116); AST/SGOT 65 U/L (<34); BILIRUBIN,DIRECT 0.2 MG/DL (<0.4); BILIRUBIN,TOTAL 0.6 MG/DL (0.3-1.2); CALCIUM LEVEL 8.7 MG/DL (8.3-10.6); CARBON DIOXIDE LEVEL 27 MMOL/L (20-31); CHLORIDE LEVEL 100 MMOL/L (98-107); CREATININE FOR GFR 0.72 MG/DL (0.70-1.30); GLOMERULAR FILTRATION RATE > 60.0 (>42); GLUCOSE, FASTING 131 MG/DL (74-106); SODIUM LEVEL 135 MMOL/L (136-145); THYROID STIMULATING HORMONE 0.872 uIU/ML (0.55-4.78)
[2022-12-11 16:00] LABS: ALT/SGPT 39 U/L (7.0-40); BLOOD UREA NITROGEN 17 MG/DL (9-23); CK-MB VALUE MASS 3.5 NG/ML (<3.6); CPK CREATINE PHOSPHOKINASE 211 U/L (46-171); MB/CK RELATIVE INDEX 1.65 (< OR =4); POTASSIUM SERUM 4.7 MMOL/L (3.5-5.1)
[2022-12-11] MEDS ORDERED: VITMTA PO (16:25)
[2022-12-11] MEDS ORDERED: OXYC-517 PO (16:25)
[2022-12-11] MEDS ORDERED: AZIT500T5 PO (16:25)
[2022-12-11] MEDS ORDERED: MOLN200C PO (16:25)
[2022-12-11] MEDS ORDERED: ACET1TAB55 PO (16:25)
[2022-12-11] MEDS ORDERED: ATOR40TA75 PO (16:25)
[2022-12-11] MEDS ORDERED: METO1TAB32 PO (16:25)
[2022-12-11] MEDS ORDERED: IBUP1TAB7 PO (16:25)
[2022-12-11] MEDS ORDERED: RAMI1CAP22 PO (16:25)
[2022-12-11] MEDS ORDERED: FAMO40TA3 PO (16:25)
[2022-12-11] MEDS ORDERED: IPRA0.00 NEB (16:25)
[2022-12-11] MEDS ORDERED: DIAZ10TA2 PO (16:25)
[2022-12-11] MEDS ORDERED: HOME MED LIST COMPLETE! XX SCH (16:30)
[2022-12-11] MEDS ORDERED: guaiFENesin 200 MG TAB PO PRN (17:15)
[2022-12-11] MEDS ORDERED: ACETAMINOPHEN TAB 650MG DOSE (2X325MG) PO PRN (17:15)
[2022-12-11] MEDS ORDERED: ALBUTEROL SULFATE 2.5MG/0.5ML INH NEB SOLN INH PRN (17:15)
[2022-12-11] MEDS ORDERED: diazePAM 10 MG TAB PO PRN (17:15)
[2022-12-11] MEDS ORDERED: IBUPROFEN 800 MG TAB PO PRN (17:15)
[2022-12-11 17:50] VITALS: BP 158/82
[2022-12-11] MEDS: NS 1,000 ML IV SCH (18:52)
[2022-12-11] MEDS: methylPREDNISolone 40MG 1ML VIAL IV SCH (18:52)
[2022-12-11] MEDS: AZITHROMYCIN 250MG TABLET PO SCH (19:44)
[2022-12-11] MEDS: IPRATROPIUM 0.5MG/ALBUTEROL 2.5MG INH SOL UD 3ML (DUONEB) NEB SCH ×2 (20:00→21:18)
[2022-12-11] MEDS ORDERED: diazePAM 5MG TABLET PO PRN (20:05)
[2022-12-11 22:00] VITALS: BP 152/84
[2022-12-11] MEDS: guaiFENesin 200 MG TAB PO SCH (22:00)
[2022-12-11] MEDS: ATORVASTATIN 20 MG TAB PO SCH (22:01)
[2022-12-11] MEDS: PHENYTOIN ER 100 MG CAP PO SCH (22:01)
[2022-12-11] MEDS: ENOXAPARIN 40MG/0.4ML SYRINGE (J1650 PER 10MG) SC SCH (22:02)
[2022-12-11] MEDS: TAMSULOSIN 0.4 MG CAP PO SCH (22:02)
[2022-12-12] MEDS: guaiFENesin 200 MG TAB PO SCH ×6 (00:35→20:32)
[2022-12-12] MEDS: IPRATROPIUM 0.5MG/ALBUTEROL 2.5MG INH SOL UD 3ML (DUONEB) NEB SCH ×7 (01:15→23:43)
[2022-12-12] MEDS: methylPREDNISolone 40MG 1ML VIAL IV SCH ×3 (05:20→20:33)
[2022-12-12 06:00] VITALS: BP 139/66
[2022-12-12 07:15] LABS: HEMATOCRIT 43.4 % (42.0-52.0); HEMOGLOBIN 14.2 g/dl (13.5-17.5); MEAN CORPUSCULAR HEMOGLOBIN 30.8 pg (27.0-33.0); MEAN CORPUSCULAR HGB CONC 32.7 g/dl (32.0-36.5); MEAN CORPUSCULAR VOLUME 94.1 fl (80.0-96.0); PLATELET COUNT, AUTOMATED 134 10^3/uL (150-450); RED BLOOD COUNT 4.61 10^6/uL (4.30-6.10); WHITE BLOOD COUNT 5.7 10^3/uL (4.0-10.0)
[2022-12-12 07:37] LABS: CPK CREATINE PHOSPHOKINASE 136 U/L (46-171)
[2022-12-12] MEDS ORDERED: CEPACOL LOZENGE PO PRN (07:55)
[2022-12-12] MEDS: ALBUTEROL 90 MCG/ACT 8GM HFA INHALER INH PRN ×3 (07:56→15:36)
[2022-12-12] MEDS: FINASTERIDE 5MG TAB PO SCH (09:01)
[2022-12-12] MEDS: PHENYTOIN ER 100 MG CAP PO SCH ×2 (09:01→20:32)
[2022-12-12] MEDS: FAMOTIDINE 20 MG TAB PO SCH (09:01)
[2022-12-12] MEDS: ASPIRIN 81MG ENTERIC TABLET PO SCH (09:01)
[2022-12-12] MEDS: MULTIVITAMINS/MINERALS THERAP 1 TAB PO SCH (09:01)
[2022-12-12] MEDS: AZITHROMYCIN 250MG TABLET PO SCH (09:02)
[2022-12-12] MEDS: METOPROLOL SUCC *XL* 25MG TAB (TopROL *XL*) PO SCH (09:03)
[2022-12-12] MEDS ORDERED: CHLORASEPTIC SPRAY MT PRN (10:35)
[2022-12-12 11:07] LABS: ALKALINE PHOSPHATASE 79 U/L (46-116); ALT/SGPT 31 U/L (7.0-40); AST/SGOT 31 U/L (<34); BILIRUBIN,TOTAL 0.4 MG/DL (0.3-1.2); BLOOD UREA NITROGEN 19 MG/DL (9-23); CALCIUM LEVEL 7.8 MG/DL (8.3-10.6); CARBON DIOXIDE LEVEL 29 MMOL/L (20-31); CHLORIDE LEVEL 104 MMOL/L (98-107); CREATININE FOR GFR 0.62 MG/DL (0.70-1.30); GLOMERULAR FILTRATION RATE > 60.0 (>42); GLUCOSE, FASTING 153 MG/DL (74-106); POTASSIUM SERUM 4.3 MMOL/L (3.5-5.1); SODIUM LEVEL 139 MMOL/L (136-145)
[2022-12-12] MEDS ORDERED: LIDOCAINE VISCOUS 2% SOLN 15ML UDC MT ONE (13:00)
[2022-12-12] MEDS: NS 1,000 ML IV SCH (13:16)
[2022-12-12 14:00] VITALS: BP 138/76
[2022-12-12 14:30] LABS: ALBUMIN 3.1 G/DL (3.2-5.2); ALKALINE PHOSPHATASE 82 U/L (46-116); ALT/SGPT 30 U/L (7.0-40); AST/SGOT 31 U/L (<34); BILIRUBIN,TOTAL 0.5 MG/DL (0.3-1.2); BLOOD UREA NITROGEN 19 MG/DL (9-23); CALCIUM LEVEL 7.8 MG/DL (8.3-10.6); CARBON DIOXIDE LEVEL 25 MMOL/L (20-31); CHLORIDE LEVEL 105 MMOL/L (98-107); CREATININE FOR GFR 0.67 MG/DL (0.70-1.30); GLOMERULAR FILTRATION RATE > 60.0 (>42); GLUCOSE, FASTING 101 MG/DL (74-106); MAGNESIUM LEVEL 1.7 MG/DL (1.8-2.4); POTASSIUM SERUM 4.3 MMOL/L (3.5-5.1); SODIUM LEVEL 138 MMOL/L (136-145); TOTAL PROTEIN 6.1 G/DL (5.7-8.2)
[2022-12-12 20:00] VITALS: BP 140/75
[2022-12-12] MEDS: ATORVASTATIN 20 MG TAB PO SCH (20:32)
[2022-12-12] MEDS: TAMSULOSIN 0.4 MG CAP PO SCH (20:32)
[2022-12-12] MEDS: ENOXAPARIN 40MG/0.4ML SYRINGE (J1650 PER 10MG) SC SCH (20:35)
[2022-12-13] MEDS: guaiFENesin 200 MG TAB PO SCH ×6 (00:10→21:46)
[2022-12-13] MEDS: IPRATROPIUM 0.5MG/ALBUTEROL 2.5MG INH SOL UD 3ML (DUONEB) NEB SCH ×6 (03:05→23:38)
[2022-12-13] MEDS: methylPREDNISolone 40MG 1ML VIAL IV SCH ×3 (05:05→21:46)
[2022-12-13 06:23] VITALS: BP 139/75
[2022-12-13 08:21] LABS: BASO % 0.3 % (0.0-1.0); EOS # 0.2 10^3/uL (0.0-0.5); EOS % 3.5 % (0.0-3.0); HEMATOCRIT 43.6 % (42.0-52.0); HEMOGLOBIN 14.1 g/dl (13.5-17.5); LYMPH # 0.8 10^3/uL (1.5-5.0); LYMPH % 13.4 % (24.0-44.0); MEAN CORPUSCULAR HEMOGLOBIN 30.8 pg (27.0-33.0); MEAN CORPUSCULAR HGB CONC 32.3 g/dl (32.0-36.5); MEAN CORPUSCULAR VOLUME 95.2 fl (80.0-96.0); MONO # 0.5 10^3/uL (0.0-0.8); MONO % 9.1 % (2.0-8.0); NEUTROPHILS # 4.4 10^3/uL (1.5-8.5); NEUTROPHILS % 73.4 % (36.0-66.0); PLATELET COUNT, AUTOMATED 133 10^3/uL (150-450); RED BLOOD COUNT 4.58 10^6/uL (4.30-6.10)
[2022-12-13 08:40] LABS: ALKALINE PHOSPHATASE 78 U/L (46-116); ALT/SGPT 31 U/L (7.0-40); AST/SGOT 27 U/L (<34); BILIRUBIN,TOTAL 0.4 MG/DL (0.3-1.2); BLOOD UREA NITROGEN 17 MG/DL (9-23); CALCIUM LEVEL 7.9 MG/DL (8.3-10.6); CARBON DIOXIDE LEVEL 29 MMOL/L (20-31); CHLORIDE LEVEL 105 MMOL/L (98-107); GLOMERULAR FILTRATION RATE > 60.0 (>42); GLUCOSE, FASTING 116 MG/DL (74-106); MAGNESIUM LEVEL 1.6 MG/DL (1.8-2.4); POTASSIUM SERUM 4.6 MMOL/L (3.5-5.1); SODIUM LEVEL 140 MMOL/L (136-145)
[2022-12-13] MEDS: ASPIRIN 81MG ENTERIC TABLET PO SCH (09:26)
[2022-12-13] MEDS: FINASTERIDE 5MG TAB PO SCH (09:27)
[2022-12-13] MEDS: MULTIVITAMINS/MINERALS THERAP 1 TAB PO SCH (09:27)
[2022-12-13] MEDS: METOPROLOL SUCC *XL* 25MG TAB (TopROL *XL*) PO SCH (09:27)
[2022-12-13] MEDS: FAMOTIDINE 20 MG TAB PO SCH (09:28)
[2022-12-13] MEDS: PHENYTOIN ER 100 MG CAP PO SCH ×2 (09:28→21:46)
[2022-12-13] MEDS: AZITHROMYCIN 250MG TABLET PO SCH (09:28)
[2022-12-13] MEDS: NS 1,000 ML IV SCH (09:30)
[2022-12-13 14:00] VITALS: BP 132/65
[2022-12-13] MEDS: ATORVASTATIN 20 MG TAB PO SCH (21:45)
[2022-12-13] MEDS: ENOXAPARIN 40MG/0.4ML SYRINGE (J1650 PER 10MG) SC SCH (21:45)
[2022-12-13] MEDS: TAMSULOSIN 0.4 MG CAP PO SCH (21:46)
[2022-12-13 23:11] VITALS: BP 124/63
[2022-12-14] MEDS: guaiFENesin 200 MG TAB PO SCH ×7 (00:48→23:22)
[2022-12-14] MEDS: IPRATROPIUM 0.5MG/ALBUTEROL 2.5MG INH SOL UD 3ML (DUONEB) NEB SCH (03:26)
[2022-12-14] MEDS: NS 1,000 ML IV SCH (04:57)
[2022-12-14] MEDS: methylPREDNISolone 40MG 1ML VIAL IV SCH (05:47)
[2022-12-14 05:50] VITALS: BP 137/60
[2022-12-14 08:00] VITALS: BP 133/74
[2022-12-14] MEDS: LEVALBUTEROL HFA 45MCG/ACT 15GM INHALER INH SCH ×4 (08:39→19:33)
[2022-12-14] MEDS: BARICITINIB 2MG TABLET (OLUMIANT) FOR EUA PO SCH (09:00)
[2022-12-14] MEDS: FINASTERIDE 5MG TAB PO SCH (09:52)
[2022-12-14] MEDS: FAMOTIDINE 20 MG TAB PO SCH (09:52)
[2022-12-14] MEDS: ASPIRIN 81MG ENTERIC TABLET PO SCH (09:56)
[2022-12-14] MEDS: MULTIVITAMINS/MINERALS THERAP 1 TAB PO SCH (09:56)
[2022-12-14] MEDS: PHENYTOIN ER 100 MG CAP PO SCH ×2 (09:56→20:48)
[2022-12-14] MEDS: METOPROLOL SUCC *XL* 25MG TAB (TopROL *XL*) PO SCH (09:56)
[2022-12-14 10:05] LABS: CK-MB VALUE MASS 3.4 NG/ML (<3.6)
[2022-12-14 10:12] LABS: MB/CK RELATIVE INDEX 4.65 (< OR =4)
[2022-12-14] MEDS: LevoFLOXacin 750 MG TABLET PO SCH (10:26)
[2022-12-14] MEDS ORDERED: REMDESIVIR 200 MG in NS 250 ML IV ONE (11:00)
[2022-12-14] MEDS ORDERED: SODIUM CHLORIDE 0.9% INJ 10 ML SYR IV ONE (13:00)
[2022-12-14] MEDS ORDERED: methylPREDNISolone 40MG 1ML VIAL IV SCH (14:00)
[2022-12-14 14:10] VITALS: BP 155/81
[2022-12-14] MEDS ORDERED: FUROSEMIDE 100MG/10ML VIAL IV ONE (19:10)
[2022-12-14 20:00] VITALS: BP 133/74
[2022-12-14] MEDS: TAMSULOSIN 0.4 MG CAP PO SCH (20:47)
[2022-12-14] MEDS: ATORVASTATIN 20 MG TAB PO SCH (20:47)
[2022-12-14] MEDS: ENOXAPARIN 40MG/0.4ML SYRINGE (J1650 PER 10MG) SC SCH (20:47)
[2022-12-15] MEDS: LEVALBUTEROL HFA 45MCG/ACT 15GM INHALER INH PRN (01:40)
[2022-12-15] MEDS: guaiFENesin 200 MG TAB PO SCH ×5 (05:23→20:21)
[2022-12-15] MEDS: LevoFLOXacin 750 MG TABLET PO SCH (05:23)
[2022-12-15 05:27] VITALS: BP 132/72
[2022-12-15 06:51] LABS: HEMATOCRIT 46.1 % (42.0-52.0); HEMOGLOBIN 15.2 g/dl (13.5-17.5); MEAN CORPUSCULAR HEMOGLOBIN 30.4 pg (27.0-33.0); MEAN CORPUSCULAR VOLUME 92.2 fl (80.0-96.0); PLATELET COUNT, AUTOMATED 152 10^3/uL (150-450); WHITE BLOOD COUNT 4.1 10^3/uL (4.0-10.0)
[2022-12-15 07:24] LABS: ALBUMIN 3.2 G/DL (3.2-5.2); ALKALINE PHOSPHATASE 79 U/L (46-116); ALT/SGPT 39 U/L (7.0-40); AST/SGOT 33 U/L (<34); BILIRUBIN,TOTAL 0.7 MG/DL (0.3-1.2); BLOOD UREA NITROGEN 21 MG/DL (9-23); CALCIUM LEVEL 8.8 MG/DL (8.3-10.6); CARBON DIOXIDE LEVEL 32 MMOL/L (20-31); CHLORIDE LEVEL 98 MMOL/L (98-107); CREATININE FOR GFR 0.71 MG/DL (0.70-1.30); GLOMERULAR FILTRATION RATE > 60.0 (>42); GLUCOSE, FASTING 92 MG/DL (74-106); POTASSIUM SERUM 3.6 MMOL/L (3.5-5.1); SODIUM LEVEL 139 MMOL/L (136-145); TOTAL PROTEIN 6.4 G/DL (5.7-8.2)
[2022-12-15] MEDS: LEVALBUTEROL HFA 45MCG/ACT 15GM INHALER INH SCH ×4 (07:58→19:52)
[2022-12-15] MEDS: BARICITINIB 2MG TABLET (OLUMIANT) FOR EUA PO SCH (08:31)
[2022-12-15] MEDS: MULTIVITAMINS/MINERALS THERAP 1 TAB PO SCH (08:31)
[2022-12-15] MEDS: FINASTERIDE 5MG TAB PO SCH (08:31)
[2022-12-15] MEDS: FAMOTIDINE 20 MG TAB PO SCH (08:32)
[2022-12-15] MEDS: PHENYTOIN ER 100 MG CAP PO SCH ×2 (08:32→20:23)
[2022-12-15] MEDS: ASPIRIN 81MG ENTERIC TABLET PO SCH (08:32)
[2022-12-15] MEDS: METOPROLOL SUCC *XL* 25MG TAB (TopROL *XL*) PO SCH (08:33)
[2022-12-15] MEDS: REMDESIVIR 100 MG in NS 250 ML IV SCH (11:42)
[2022-12-15] MEDS: ENOXAPARIN 80MG/0.8ML SYRINGE (J1650 PER 10MG) SC SCH ×2 (11:42→20:23)
[2022-12-15] MEDS: SODIUM CHLORIDE 0.9% INJ 10 ML SYR IV SCH (11:44)
[2022-12-15] MEDS ORDERED: FUROSEMIDE 20MG/2ML VIAL IV ONE (17:00)
[2022-12-15 18:35] VITALS: BP 142/84
[2022-12-15] MEDS: TAMSULOSIN 0.4 MG CAP PO SCH (20:21)
[2022-12-15] MEDS: ATORVASTATIN 20 MG TAB PO SCH (20:21)
[2022-12-15 21:11] VITALS: BP 123/63
[2022-12-16] MEDS: guaiFENesin 200 MG TAB PO SCH ×7 (00:39→23:57)
[2022-12-16] MEDS: LEVALBUTEROL HFA 45MCG/ACT 15GM INHALER INH PRN (01:12)
[2022-12-16] MEDS: LevoFLOXacin 750 MG TABLET PO SCH (05:07)
[2022-12-16 07:18] VITALS: BP 136/84
[2022-12-16] MEDS: LEVALBUTEROL HFA 45MCG/ACT 15GM INHALER INH SCH ×4 (07:31→20:29)
[2022-12-16 08:04] LABS: HEMATOCRIT 47.5 % (42.0-52.0); HEMOGLOBIN 15.7 g/dl (13.5-17.5); MEAN CORPUSCULAR HEMOGLOBIN 30.5 pg (27.0-33.0); MEAN CORPUSCULAR HGB CONC 33.1 g/dl (32.0-36.5); MEAN CORPUSCULAR VOLUME 92.4 fl (80.0-96.0); PLATELET COUNT, AUTOMATED 185 10^3/uL (150-450); RED BLOOD COUNT 5.14 10^6/uL (4.30-6.10); WHITE BLOOD COUNT 5.4 10^3/uL (4.0-10.0)
[2022-12-16 08:30] LABS: ALBUMIN 3.2 G/DL (3.2-5.2); ALKALINE PHOSPHATASE 81 U/L (46-116); ALT/SGPT 41 U/L (7.0-40); AST/SGOT 34 U/L (<34); BILIRUBIN,TOTAL 0.5 MG/DL (0.3-1.2); BLOOD UREA NITROGEN 29 MG/DL (9-23); CARBON DIOXIDE LEVEL 33 MMOL/L (20-31); CHLORIDE LEVEL 99 MMOL/L (98-107); CREATININE FOR GFR 0.78 MG/DL (0.70-1.30); GLOMERULAR FILTRATION RATE > 60.0 (>42); GLUCOSE, FASTING 79 MG/DL (74-106); SODIUM LEVEL 139 MMOL/L (136-145); TOTAL PROTEIN 6.5 G/DL (5.7-8.2)
[2022-12-16] MEDS ORDERED: ISOVUE-370 76% 100ML VIAL As Ordered ONE (09:04)
[2022-12-16] MEDS: FINASTERIDE 5MG TAB PO SCH (10:33)
[2022-12-16] MEDS: ENOXAPARIN 80MG/0.8ML SYRINGE (J1650 PER 10MG) SC SCH ×2 (10:33→20:05)
[2022-12-16] MEDS: PHENYTOIN ER 100 MG CAP PO SCH ×2 (10:33→20:07)
[2022-12-16] MEDS: BARICITINIB 2MG TABLET (OLUMIANT) FOR EUA PO SCH (10:34)
[2022-12-16] MEDS: ASPIRIN 81MG ENTERIC TABLET PO SCH (10:34)
[2022-12-16] MEDS: FAMOTIDINE 20 MG TAB PO SCH (10:34)
[2022-12-16] MEDS: MULTIVITAMINS/MINERALS THERAP 1 TAB PO SCH (10:34)
[2022-12-16] MEDS: METOPROLOL SUCC *XL* 25MG TAB (TopROL *XL*) PO SCH (10:37)
[2022-12-16] MEDS: REMDESIVIR 100 MG in NS 250 ML IV SCH (11:57)
[2022-12-16] MEDS: SODIUM CHLORIDE 0.9% INJ 10 ML SYR IV SCH (12:00)
[2022-12-16 14:00] VITALS: BP 124/75
[2022-12-16] MEDS ORDERED: FUROSEMIDE 20MG/2ML VIAL IV ONE (18:45)
[2022-12-16 20:00] VITALS: BP 121/78
[2022-12-16] MEDS: ATORVASTATIN 20 MG TAB PO SCH (20:07)
[2022-12-16] MEDS: TAMSULOSIN 0.4 MG CAP PO SCH (20:07)
[2022-12-17] MEDS: oxyCODONE 5MG TAB PO PRN ×2 (02:20→22:28)
[2022-12-17] MEDS: LevoFLOXacin 750 MG TABLET PO SCH (05:01)
[2022-12-17] MEDS: guaiFENesin 200 MG TAB PO SCH ×6 (05:02→23:51)
[2022-12-17 06:58] VITALS: BP 148/74
[2022-12-17 07:08] LABS: HEMATOCRIT 46.2 % (42.0-52.0); HEMOGLOBIN 15.5 g/dl (13.5-17.5); MEAN CORPUSCULAR HEMOGLOBIN 30.6 pg (27.0-33.0); MEAN CORPUSCULAR HGB CONC 33.5 g/dl (32.0-36.5); MEAN CORPUSCULAR VOLUME 91.3 fl (80.0-96.0); PLATELET COUNT, AUTOMATED 177 10^3/uL (150-450); RED BLOOD COUNT 5.06 10^6/uL (4.30-6.10); WHITE BLOOD COUNT 4.2 10^3/uL (4.0-10.0)
[2022-12-17 07:36] LABS: ALBUMIN 3.2 G/DL (3.2-5.2); ALKALINE PHOSPHATASE 77 U/L (46-116); ALT/SGPT 41 U/L (7.0-40); AST/SGOT 33 U/L (<34); BILIRUBIN,TOTAL 0.5 MG/DL (0.3-1.2); BLOOD UREA NITROGEN 29 MG/DL (9-23); CALCIUM LEVEL 8.8 MG/DL (8.3-10.6); CARBON DIOXIDE LEVEL 30 MMOL/L (20-31); CHLORIDE LEVEL 100 MMOL/L (98-107); CREATININE FOR GFR 0.71 MG/DL (0.70-1.30); GLOMERULAR FILTRATION RATE > 60.0 (>42); GLUCOSE, FASTING 98 MG/DL (74-106); POTASSIUM SERUM 4.2 MMOL/L (3.5-5.1); SODIUM LEVEL 137 MMOL/L (136-145); TOTAL PROTEIN 6.3 G/DL (5.7-8.2)
[2022-12-17] MEDS: LEVALBUTEROL HFA 45MCG/ACT 15GM INHALER INH SCH ×4 (07:47→20:05)
[2022-12-17] MEDS: ENOXAPARIN 80MG/0.8ML SYRINGE (J1650 PER 10MG) SC SCH ×2 (09:57→21:04)
[2022-12-17] MEDS: BARICITINIB 2MG TABLET (OLUMIANT) FOR EUA PO SCH (09:58)
[2022-12-17] MEDS: FAMOTIDINE 20 MG TAB PO SCH (09:58)
[2022-12-17] MEDS: PHENYTOIN ER 100 MG CAP PO SCH ×2 (09:59→21:05)
[2022-12-17] MEDS: ASPIRIN 81MG ENTERIC TABLET PO SCH (09:59)
[2022-12-17] MEDS: MULTIVITAMINS/MINERALS THERAP 1 TAB PO SCH (10:02)
[2022-12-17] MEDS: METOPROLOL SUCC *XL* 25MG TAB (TopROL *XL*) PO SCH (10:02)
[2022-12-17] MEDS: FINASTERIDE 5MG TAB PO SCH (10:02)
[2022-12-17] MEDS: REMDESIVIR 100 MG in NS 250 ML IV SCH (11:04)
[2022-12-17] MEDS: SODIUM CHLORIDE 0.9% INJ 10 ML SYR IV SCH (14:00)
[2022-12-17 14:30] VITALS: BP 132/75
[2022-12-17 16:45] VITALS: O2SAT 88; O2SAT 92
[2022-12-17 20:57] VITALS: BP 136/74
[2022-12-17] MEDS: ATORVASTATIN 20 MG TAB PO SCH (21:05)
[2022-12-17] MEDS: TAMSULOSIN 0.4 MG CAP PO SCH (21:06)
[2022-12-18] MEDS: guaiFENesin 200 MG TAB PO SCH ×6 (04:44→23:29)
[2022-12-18 06:55] VITALS: BP 134/72
[2022-12-18] MEDS: LEVALBUTEROL HFA 45MCG/ACT 15GM INHALER INH SCH ×4 (07:27→20:06)
[2022-12-18 08:14] LABS: HEMATOCRIT 43.3 % (42.0-52.0); HEMOGLOBIN 14.4 g/dl (13.5-17.5); MEAN CORPUSCULAR HEMOGLOBIN 30.5 pg (27.0-33.0); MEAN CORPUSCULAR HGB CONC 33.3 g/dl (32.0-36.5); MEAN CORPUSCULAR VOLUME 91.7 fl (80.0-96.0); PLATELET COUNT, AUTOMATED 180 10^3/uL (150-450); RED BLOOD COUNT 4.72 10^6/uL (4.30-6.10); WHITE BLOOD COUNT 4.7 10^3/uL (4.0-10.0)
[2022-12-18 08:39] LABS: ALKALINE PHOSPHATASE 78 U/L (46-116); ALT/SGPT 38 U/L (7.0-40); AST/SGOT 30 U/L (<34); BILIRUBIN,TOTAL 0.6 MG/DL (0.3-1.2); BLOOD UREA NITROGEN 27 MG/DL (9-23); CALCIUM LEVEL 8.5 MG/DL (8.3-10.6); CARBON DIOXIDE LEVEL 30 MMOL/L (20-31); CHLORIDE LEVEL 100 MMOL/L (98-107); CREATININE FOR GFR 0.67 MG/DL (0.70-1.30); GLOMERULAR FILTRATION RATE > 60.0 (>42); GLUCOSE, FASTING 100 MG/DL (74-106); POTASSIUM SERUM 4.2 MMOL/L (3.5-5.1); SODIUM LEVEL 136 MMOL/L (136-145); TOTAL PROTEIN 6.1 G/DL (5.7-8.2)
[2022-12-18] MEDS: BARICITINIB 2MG TABLET (OLUMIANT) FOR EUA PO SCH (09:47)
[2022-12-18] MEDS: PHENYTOIN ER 100 MG CAP PO SCH ×2 (09:48→20:13)
[2022-12-18] MEDS: FINASTERIDE 5MG TAB PO SCH (09:48)
[2022-12-18] MEDS: ASPIRIN 81MG ENTERIC TABLET PO SCH (09:48)
[2022-12-18] MEDS: MULTIVITAMINS/MINERALS THERAP 1 TAB PO SCH (09:48)
[2022-12-18] MEDS: FAMOTIDINE 20 MG TAB PO SCH (09:48)
[2022-12-18] MEDS: ENOXAPARIN 80MG/0.8ML SYRINGE (J1650 PER 10MG) SC SCH (09:49)
[2022-12-18] MEDS: METOPROLOL SUCC *XL* 25MG TAB (TopROL *XL*) PO SCH (09:53)
[2022-12-18] MEDS: REMDESIVIR 100 MG in NS 250 ML IV SCH (11:40)
[2022-12-18] MEDS: SODIUM CHLORIDE 0.9% INJ 10 ML SYR IV SCH (12:00)
[2022-12-18] MEDS ORDERED: ENOXAPARIN 40MG/0.4ML SYRINGE (J1650 PER 10MG) SC SCH (15:20)
[2022-12-18 16:30] VITALS: BP 154/90
[2022-12-18] MEDS: BUDESONIDE 180MCG INHALER (PULMICORT FLEXHALER) INH SCH (20:00)
[2022-12-18 20:02] LABS: HEMATOCRIT 45.9 % (42.0-52.0); HEMOGLOBIN 15.5 g/dl (13.5-17.5); MEAN CORPUSCULAR HEMOGLOBIN 30.7 pg (27.0-33.0); MEAN CORPUSCULAR HGB CONC 33.8 g/dl (32.0-36.5); MEAN CORPUSCULAR VOLUME 90.9 fl (80.0-96.0); PLATELET COUNT, AUTOMATED 191 10^3/uL (150-450); RED BLOOD COUNT 5.05 10^6/uL (4.30-6.10); WHITE BLOOD COUNT 5.3 10^3/uL (4.0-10.0)
[2022-12-18] MEDS: ATORVASTATIN 20 MG TAB PO SCH (20:12)
[2022-12-18] MEDS: TAMSULOSIN 0.4 MG CAP PO SCH (20:12)
[2022-12-18] MEDS: oxyCODONE 5MG TAB PO PRN (20:16)
[2022-12-18 22:00] VITALS: BP 131/72
[2022-12-18] MEDS ORDERED: guaiFENesin ER 600 MG TAB PO PRN (23:15)
[2022-12-19] MEDS: LEVALBUTEROL 1.25MG 0.5ML CONCENTRATE NEB INH SCH ×4 (02:00→20:21)
[2022-12-19 02:12] LABS: HEMATOCRIT 42.3 % (42.0-52.0); HEMOGLOBIN 14.5 g/dl (13.5-17.5)
[2022-12-19] MEDS: guaiFENesin 200 MG TAB PO SCH ×5 (04:25→20:29)
[2022-12-19 04:55] VITALS: BP 129/72
[2022-12-19 07:11] LABS: HEMATOCRIT 43.1 % (42.0-52.0); HEMOGLOBIN 14.7 g/dl (13.5-17.5); MEAN CORPUSCULAR HEMOGLOBIN 31.1 pg (27.0-33.0); MEAN CORPUSCULAR HGB CONC 34.1 g/dl (32.0-36.5); MEAN CORPUSCULAR VOLUME 91.1 fl (80.0-96.0); PLATELET COUNT, AUTOMATED 181 10^3/uL (150-450); RED BLOOD COUNT 4.73 10^6/uL (4.30-6.10); WHITE BLOOD COUNT 4.3 10^3/uL (4.0-10.0)
[2022-12-19 07:39] LABS: ALKALINE PHOSPHATASE 71 U/L (46-116); ALT/SGPT 38 U/L (7.0-40); AST/SGOT 30 U/L (<34); BILIRUBIN,TOTAL 0.6 MG/DL (0.3-1.2); BLOOD UREA NITROGEN 21 MG/DL (9-23); CALCIUM LEVEL 8.5 MG/DL (8.3-10.6); CARBON DIOXIDE LEVEL 31 MMOL/L (20-31); CHLORIDE LEVEL 103 MMOL/L (98-107); CREATININE FOR GFR 0.59 MG/DL (0.70-1.30); GLOMERULAR FILTRATION RATE > 60.0 (>42); GLUCOSE, FASTING 96 MG/DL (74-106); POTASSIUM SERUM 4.4 MMOL/L (3.5-5.1); SODIUM LEVEL 138 MMOL/L (136-145); TOTAL PROTEIN 6.1 G/DL (5.7-8.2)
[2022-12-19] MEDS: BUDESONIDE 180MCG INHALER (PULMICORT FLEXHALER) INH SCH ×3 (08:00→20:21)
[2022-12-19] MEDS: PHENYTOIN ER 100 MG CAP PO SCH ×2 (08:45→20:29)
[2022-12-19] MEDS: BARICITINIB 2MG TABLET (OLUMIANT) FOR EUA PO SCH (08:46)
[2022-12-19] MEDS: METOPROLOL SUCC *XL* 25MG TAB (TopROL *XL*) PO SCH (08:50)
[2022-12-19] MEDS: MULTIVITAMINS/MINERALS THERAP 1 TAB PO SCH (08:51)
[2022-12-19] MEDS: FINASTERIDE 5MG TAB PO SCH (08:51)
[2022-12-19] MEDS: FAMOTIDINE 20 MG TAB PO SCH (08:51)
[2022-12-19] MEDS: oxyCODONE 5MG TAB PO PRN ×2 (09:30→20:30)
[2022-12-19 14:08] VITALS: BP 127/74
[2022-12-19] MEDS: LACTOBACILLUS ACIDOPHILUS CAP (BACID) PO SCH (18:29)
[2022-12-19] MEDS: AUGMENTIN 875 MG TAB PO SCH (20:29)
[2022-12-19] MEDS: TAMSULOSIN 0.4 MG CAP PO SCH (20:29)
[2022-12-19] MEDS: ATORVASTATIN 20 MG TAB PO SCH (20:29)
[2022-12-19 21:17] VITALS: BP 124/67
[2022-12-20] MEDS: guaiFENesin 200 MG TAB PO SCH ×6 (00:27→20:48)
[2022-12-20] MEDS: LEVALBUTEROL 1.25MG 0.5ML CONCENTRATE NEB INH SCH ×4 (02:00→20:13)
[2022-12-20 05:06] VITALS: BP 123/66
[2022-12-20] MEDS: BUDESONIDE 180MCG INHALER (PULMICORT FLEXHALER) INH SCH (07:32)
[2022-12-20 08:11] LABS: HEMATOCRIT 43.9 % (42.0-52.0); HEMOGLOBIN 14.9 g/dl (13.5-17.5); MEAN CORPUSCULAR HEMOGLOBIN 30.8 pg (27.0-33.0); MEAN CORPUSCULAR HGB CONC 33.9 g/dl (32.0-36.5); MEAN CORPUSCULAR VOLUME 90.7 fl (80.0-96.0); PLATELET COUNT, AUTOMATED 180 10^3/uL (150-450); RED BLOOD COUNT 4.84 10^6/uL (4.30-6.10); WHITE BLOOD COUNT 5.9 10^3/uL (4.0-10.0)
[2022-12-20 08:41] LABS: ALBUMIN 3.1 G/DL (3.2-5.2); ALKALINE PHOSPHATASE 79 U/L (46-116); ALT/SGPT 36 U/L (7.0-40); AST/SGOT 30 U/L (<34); BILIRUBIN,TOTAL 0.7 MG/DL (0.3-1.2); BLOOD UREA NITROGEN 19 MG/DL (9-23); CALCIUM LEVEL 8.8 MG/DL (8.3-10.6); CARBON DIOXIDE LEVEL 31 MMOL/L (20-31); CHLORIDE LEVEL 102 MMOL/L (98-107); CREATININE FOR GFR 0.63 MG/DL (0.70-1.30); GLOMERULAR FILTRATION RATE > 60.0 (>42); GLUCOSE, FASTING 100 MG/DL (74-106); POTASSIUM SERUM 4.3 MMOL/L (3.5-5.1); SODIUM LEVEL 136 MMOL/L (136-145); TOTAL PROTEIN 6.2 G/DL (5.7-8.2)
[2022-12-20] MEDS: BARICITINIB 2MG TABLET (OLUMIANT) FOR EUA PO SCH (10:30)
[2022-12-20] MEDS: PHENYTOIN ER 100 MG CAP PO SCH ×2 (10:31→20:49)
[2022-12-20] MEDS: LACTOBACILLUS ACIDOPHILUS CAP (BACID) PO SCH ×2 (10:31→16:54)
[2022-12-20] MEDS: AUGMENTIN 875 MG TAB PO SCH ×2 (10:31→20:48)
[2022-12-20] MEDS: FAMOTIDINE 20 MG TAB PO SCH (10:32)
[2022-12-20] MEDS: MULTIVITAMINS/MINERALS THERAP 1 TAB PO SCH (10:32)
[2022-12-20] MEDS: METOPROLOL SUCC *XL* 25MG TAB (TopROL *XL*) PO SCH (10:36)
[2022-12-20] MEDS: FINASTERIDE 5MG TAB PO SCH (10:37)
[2022-12-20 13:16] VITALS: BP 140/82
[2022-12-20] MEDS: IPRATROPIUM 0.02% SOLN 0.5MG 2.5ML NEB INH SCH ×2 (14:00→20:13)
[2022-12-20] MEDS: LevoFLOXacin IV 750 MG in IV 1 EA IV SCH (15:52)
[2022-12-20] MEDS: methylPREDNISolone 125MG 2ML VIAL IV SCH ×2 (15:53→20:49)
[2022-12-20 19:16] VITALS: BP 140/81
[2022-12-20] MEDS: oxyCODONE 5MG TAB PO PRN (19:37)
[2022-12-20] MEDS ORDERED: SYMBICORT 160/4.5MCG INHALER 6GM INH SCH (20:00)
[2022-12-20] MEDS: TAMSULOSIN 0.4 MG CAP PO SCH (20:48)
[2022-12-20] MEDS: ATORVASTATIN 20 MG TAB PO SCH (20:48)
[2022-12-20] MEDS: FORMOTEROL FUMARATE 20 MCG/2 ML INHALATION SOLUTION (PERFOROMIST) INH SCH (21:16)
[2022-12-21] MEDS: guaiFENesin 200 MG TAB PO SCH ×7 (00:59→23:43)
[2022-12-21] MEDS: methylPREDNISolone 125MG 2ML VIAL IV SCH ×4 (01:00→21:23)
[2022-12-21] MEDS: IPRATROPIUM 0.02% SOLN 0.5MG 2.5ML NEB INH SCH ×4 (01:38→22:03)
[2022-12-21] MEDS: LEVALBUTEROL 1.25MG 0.5ML CONCENTRATE NEB INH SCH ×4 (01:39→22:03)
[2022-12-21 05:06] VITALS: BP 129/61
[2022-12-21 07:06] LABS: HEMATOCRIT 45.2 % (42.0-52.0); HEMOGLOBIN 15.2 g/dl (13.5-17.5); MEAN CORPUSCULAR HEMOGLOBIN 30.5 pg (27.0-33.0); MEAN CORPUSCULAR HGB CONC 33.6 g/dl (32.0-36.5); MEAN CORPUSCULAR VOLUME 90.6 fl (80.0-96.0); PLATELET COUNT, AUTOMATED 174 10^3/uL (150-450); RED BLOOD COUNT 4.99 10^6/uL (4.30-6.10); WHITE BLOOD COUNT 5.9 10^3/uL (4.0-10.0)
[2022-12-21 07:23] LABS: ALBUMIN 3.2 G/DL (3.2-5.2); ALKALINE PHOSPHATASE 72 U/L (46-116); ALT/SGPT 41 U/L (7.0-40); AST/SGOT 44 U/L (<34); BILIRUBIN,TOTAL 0.6 MG/DL (0.3-1.2); BLOOD UREA NITROGEN 18 MG/DL (9-23); CALCIUM LEVEL 8.6 MG/DL (8.3-10.6); CARBON DIOXIDE LEVEL 26 MMOL/L (20-31); CHLORIDE LEVEL 102 MMOL/L (98-107); CREATININE FOR GFR 0.65 MG/DL (0.70-1.30); GLOMERULAR FILTRATION RATE > 60.0 (>42); GLUCOSE, FASTING 164 MG/DL (74-106); POTASSIUM SERUM 5.2 MMOL/L (3.5-5.1); SODIUM LEVEL 134 MMOL/L (136-145); TOTAL PROTEIN 6.4 G/DL (5.7-8.2)
[2022-12-21] MEDS: FORMOTEROL FUMARATE 20 MCG/2 ML INHALATION SOLUTION (PERFOROMIST) INH SCH ×2 (07:43→22:03)
[2022-12-21] MEDS: FAMOTIDINE 20 MG TAB PO SCH (08:13)
[2022-12-21] MEDS: PHENYTOIN ER 100 MG CAP PO SCH ×2 (08:13→21:23)
[2022-12-21] MEDS: LACTOBACILLUS ACIDOPHILUS CAP (BACID) PO SCH ×2 (08:14→16:33)
[2022-12-21] MEDS: MULTIVITAMINS/MINERALS THERAP 1 TAB PO SCH (08:14)
[2022-12-21] MEDS: BARICITINIB 2MG TABLET (OLUMIANT) FOR EUA PO SCH (08:14)
[2022-12-21] MEDS: AUGMENTIN 875 MG TAB PO SCH ×2 (08:14→21:23)
[2022-12-21] MEDS: FINASTERIDE 5MG TAB PO SCH (08:14)
[2022-12-21] MEDS: METOPROLOL SUCC *XL* 25MG TAB (TopROL *XL*) PO SCH (08:15)
[2022-12-21 14:00] VITALS: BP 140/85
[2022-12-21] MEDS: LevoFLOXacin IV 750 MG in IV 1 EA IV SCH (14:35)
[2022-12-21 19:40] VITALS: BP 130/73
[2022-12-21] MEDS: TAMSULOSIN 0.4 MG CAP PO SCH (21:23)
[2022-12-21] MEDS: ATORVASTATIN 20 MG TAB PO SCH (21:24)
[2022-12-21] MEDS: MIRALAX *UNIT DOSE* 17GM PACKET PO SCH (21:24)
[2022-12-21] MEDS: METAMUCIL (PSYLLIUM) PACKET PO SCH (21:24)
[2022-12-21] MEDS: oxyCODONE 5MG TAB PO PRN (21:41)
[2022-12-22] MEDS: methylPREDNISolone 125MG 2ML VIAL IV SCH ×3 (02:00→17:25)
[2022-12-22] MEDS: LEVALBUTEROL 1.25MG 0.5ML CONCENTRATE NEB INH SCH ×4 (02:25→20:00)
[2022-12-22] MEDS: IPRATROPIUM 0.02% SOLN 0.5MG 2.5ML NEB INH SCH ×4 (02:25→20:00)
[2022-12-22] MEDS: guaiFENesin 200 MG TAB PO SCH ×5 (04:34→20:38)
[2022-12-22 04:36] VITALS: BP 126/59
[2022-12-22] MEDS: FORMOTEROL FUMARATE 20 MCG/2 ML INHALATION SOLUTION (PERFOROMIST) INH SCH ×2 (07:48→20:00)
[2022-12-22 07:58] LABS: BASO % 0.2 % (0.0-1.0); HEMATOCRIT 43.1 % (42.0-52.0); HEMOGLOBIN 14.6 g/dl (13.5-17.5); LYMPH # 0.7 10^3/uL (1.5-5.0); LYMPH % 7.3 % (24.0-44.0); MEAN CORPUSCULAR HGB CONC 33.9 g/dl (32.0-36.5); MEAN CORPUSCULAR VOLUME 91.5 fl (80.0-96.0); MONO # 0.4 10^3/uL (0.0-0.8); MONO % 4.3 % (2.0-8.0); NEUTROPHILS # 8.7 10^3/uL (1.5-8.5); NEUTROPHILS % 87.1 % (36.0-66.0); PLATELET COUNT, AUTOMATED 247 10^3/uL (150-450); RED BLOOD COUNT 4.71 10^6/uL (4.30-6.10)
[2022-12-22] MEDS: BUDESONIDE 0.5 MG/2 ML INHALATION SUSPENSION INH SCH ×2 (08:00→20:00)
[2022-12-22 08:18] LABS: ALBUMIN 3.1 G/DL (3.2-5.2); ALKALINE PHOSPHATASE 78 U/L (46-116); ALT/SGPT 43 U/L (7.0-40); AST/SGOT 19 U/L (<34); BILIRUBIN,TOTAL 0.6 MG/DL (0.3-1.2); BLOOD UREA NITROGEN 22 MG/DL (9-23); CALCIUM LEVEL 8.9 MG/DL (8.3-10.6); CARBON DIOXIDE LEVEL 28 MMOL/L (20-31); CHLORIDE LEVEL 101 MMOL/L (98-107); CREATININE FOR GFR 0.65 MG/DL (0.70-1.30); GLOMERULAR FILTRATION RATE > 60.0 (>42); GLUCOSE, FASTING 177 MG/DL (74-106); POTASSIUM SERUM 4.9 MMOL/L (3.5-5.1); SODIUM LEVEL 135 MMOL/L (136-145); TOTAL PROTEIN 6.2 G/DL (5.7-8.2)
[2022-12-22] MEDS: METAMUCIL (PSYLLIUM) PACKET PO SCH ×2 (08:44→20:38)
[2022-12-22] MEDS: LACTOBACILLUS ACIDOPHILUS CAP (BACID) PO SCH ×2 (08:45→17:25)
[2022-12-22] MEDS: FAMOTIDINE 20 MG TAB PO SCH (08:46)
[2022-12-22] MEDS: BARICITINIB 2MG TABLET (OLUMIANT) FOR EUA PO SCH (08:47)
[2022-12-22] MEDS: FINASTERIDE 5MG TAB PO SCH (08:47)
[2022-12-22] MEDS: AUGMENTIN 875 MG TAB PO SCH ×2 (08:48→20:37)
[2022-12-22] MEDS: MULTIVITAMINS/MINERALS THERAP 1 TAB PO SCH (08:48)
[2022-12-22] MEDS: PHENYTOIN ER 100 MG CAP PO SCH ×2 (08:52→20:37)
[2022-12-22] MEDS: METOPROLOL SUCC *XL* 25MG TAB (TopROL *XL*) PO SCH (08:52)
[2022-12-22] MEDS: MIRALAX *UNIT DOSE* 17GM PACKET PO SCH ×3 (09:00→21:00)
[2022-12-22 14:00] VITALS: BP 136/78
[2022-12-22] MEDS: LevoFLOXacin 750 MG TABLET PO SCH (15:09)
[2022-12-22] MEDS: oxyCODONE 5MG TAB PO PRN (20:36)
[2022-12-22] MEDS: TAMSULOSIN 0.4 MG CAP PO SCH (20:37)
[2022-12-22] MEDS: ATORVASTATIN 20 MG TAB PO SCH (20:37)
[2022-12-22 21:08] VITALS: BP 148/89
[2022-12-23] MEDS: guaiFENesin 200 MG TAB PO SCH ×6 (00:10→19:57)
[2022-12-23] MEDS: IPRATROPIUM 0.02% SOLN 0.5MG 2.5ML NEB INH SCH ×4 (01:20→19:47)
[2022-12-23] MEDS: LEVALBUTEROL 1.25MG 0.5ML CONCENTRATE NEB INH SCH ×4 (01:20→19:47)
[2022-12-23] MEDS: methylPREDNISolone 125MG 2ML VIAL IV SCH ×2 (02:42→14:48)
[2022-12-23 05:13] VITALS: BP 119/67
[2022-12-23] MEDS: LevoFLOXacin 750 MG TABLET PO SCH (05:49)
[2022-12-23 06:58] LABS: BASO % 0.1 % (0.0-1.0); EOS % 0.1 % (0.0-3.0); HEMATOCRIT 44.4 % (42.0-52.0); HEMOGLOBIN 14.9 g/dl (13.5-17.5); LYMPH # 0.7 10^3/uL (1.5-5.0); MEAN CORPUSCULAR HEMOGLOBIN 30.7 pg (27.0-33.0); MEAN CORPUSCULAR HGB CONC 33.6 g/dl (32.0-36.5); MEAN CORPUSCULAR VOLUME 91.5 fl (80.0-96.0); MONO # 0.5 10^3/uL (0.0-0.8); MONO % 4.2 % (2.0-8.0); NEUTROPHILS # 9.3 10^3/uL (1.5-8.5); NEUTROPHILS % 87.8 % (36.0-66.0); PLATELET COUNT, AUTOMATED 276 10^3/uL (150-450); RED BLOOD COUNT 4.85 10^6/uL (4.30-6.10); WHITE BLOOD COUNT 10.6 10^3/uL (4.0-10.0)
[2022-12-23 07:27] LABS: ALBUMIN 3.3 G/DL (3.2-5.2); ALKALINE PHOSPHATASE 85 U/L (46-116); ALT/SGPT 51 U/L (7.0-40); AST/SGOT 31 U/L (<34); BILIRUBIN,TOTAL 0.8 MG/DL (0.3-1.2); BLOOD UREA NITROGEN 22 MG/DL (9-23); CALCIUM LEVEL 9.4 MG/DL (8.3-10.6); CARBON DIOXIDE LEVEL 28 MMOL/L (20-31); CHLORIDE LEVEL 100 MMOL/L (98-107); CREATININE FOR GFR 0.72 MG/DL (0.70-1.30); GLOMERULAR FILTRATION RATE > 60.0 (>42); GLUCOSE, FASTING 179 MG/DL (74-106); POTASSIUM SERUM 4.8 MMOL/L (3.5-5.1); SODIUM LEVEL 134 MMOL/L (136-145); TOTAL PROTEIN 6.4 G/DL (5.7-8.2)
[2022-12-23] MEDS: FORMOTEROL FUMARATE 20 MCG/2 ML INHALATION SOLUTION (PERFOROMIST) INH SCH ×2 (08:10→19:48)
[2022-12-23] MEDS: BUDESONIDE 0.5 MG/2 ML INHALATION SUSPENSION INH SCH ×2 (08:10→19:48)
[2022-12-23] MEDS: PHENYTOIN ER 100 MG CAP PO SCH ×2 (08:56→19:57)
[2022-12-23] MEDS: MULTIVITAMINS/MINERALS THERAP 1 TAB PO SCH (08:56)
[2022-12-23] MEDS: AUGMENTIN 875 MG TAB PO SCH ×2 (08:57→19:57)
[2022-12-23] MEDS: LACTOBACILLUS ACIDOPHILUS CAP (BACID) PO SCH ×2 (08:57→16:50)
[2022-12-23] MEDS: FAMOTIDINE 20 MG TAB PO SCH (08:57)
[2022-12-23] MEDS: FINASTERIDE 5MG TAB PO SCH (08:57)
[2022-12-23] MEDS: MIRALAX *UNIT DOSE* 17GM PACKET PO SCH ×2 (08:58→19:57)
[2022-12-23] MEDS: BARICITINIB 2MG TABLET (OLUMIANT) FOR EUA PO SCH (08:58)
[2022-12-23] MEDS: METAMUCIL (PSYLLIUM) PACKET PO SCH ×2 (08:58→19:57)
[2022-12-23] MEDS: METOPROLOL SUCC *XL* 25MG TAB (TopROL *XL*) PO SCH (08:58)
[2022-12-23] MEDS: oxyCODONE 5MG TAB PO PRN ×2 (09:13→16:51)
[2022-12-23] MEDS: LEVALBUTEROL HFA 45MCG/ACT 15GM INHALER INH PRN (11:32)
[2022-12-23 11:39] LABS: ABG BASE EXCESS 2.8 (-2.0-2.0); ABG HCO3 27.5 MEQ/L (22.0-26.0); ABG O2 SATURATION 93.8 % (95.0-99.0); ABG PARTIAL PRESSURE CO2 42.7 mmHg (35.0-45.0); ABG PARTIAL PRESSURE O2 66.7 mmHg (75.0-100.0); ABG STANDARD HCO3 26.8 MEQ/L (22.0-26.0); ABG TOTAL CO2 28.8 MEQ/L (23.0-31.0); ABG pH (ARTERIAL) 7.427 UNITS (7.350-7.450)
[2022-12-23 14:00] VITALS: BP 116/67
[2022-12-23] MEDS: TAMSULOSIN 0.4 MG CAP PO SCH (19:56)
[2022-12-23] MEDS: ATORVASTATIN 20 MG TAB PO SCH (19:57)
[2022-12-23 20:44] VITALS: BP 180/149
[2022-12-23 20:45] VITALS: BP 140/74
[2022-12-24] MEDS: IPRATROPIUM 0.02% SOLN 0.5MG 2.5ML NEB INH SCH ×4 (01:07→21:03)
[2022-12-24] MEDS: LEVALBUTEROL 1.25MG 0.5ML CONCENTRATE NEB INH SCH ×4 (01:07→21:03)
[2022-12-24] MEDS: methylPREDNISolone 125MG 2ML VIAL IV SCH ×2 (02:11→13:51)
[2022-12-24] MEDS: guaiFENesin 200 MG TAB PO SCH ×6 (04:52→20:16)
[2022-12-24] MEDS: LevoFLOXacin 750 MG TABLET PO SCH (04:52)
[2022-12-24] MEDS: oxyCODONE 5MG TAB PO PRN ×3 (04:54→22:01)
[2022-12-24 05:00] VITALS: BP 127/64
[2022-12-24 06:57] LABS: BASO % 0.2 % (0.0-1.0); EOS % 0.1 % (0.0-3.0); HEMATOCRIT 44.4 % (42.0-52.0); HEMOGLOBIN 14.7 g/dl (13.5-17.5); LYMPH # 0.9 10^3/uL (1.5-5.0); LYMPH % 9.7 % (24.0-44.0); MEAN CORPUSCULAR HEMOGLOBIN 30.6 pg (27.0-33.0); MEAN CORPUSCULAR HGB CONC 33.1 g/dl (32.0-36.5); MEAN CORPUSCULAR VOLUME 92.3 fl (80.0-96.0); MONO # 0.5 10^3/uL (0.0-0.8); MONO % 5.1 % (2.0-8.0); NEUTROPHILS % 83.8 % (36.0-66.0); PLATELET COUNT, AUTOMATED 266 10^3/uL (150-450); RED BLOOD COUNT 4.81 10^6/uL (4.30-6.10); WHITE BLOOD COUNT 9.5 10^3/uL (4.0-10.0)
[2022-12-24 07:27] LABS: ALBUMIN 3.2 G/DL (3.2-5.2); ALKALINE PHOSPHATASE 73 U/L (46-116); ALT/SGPT 64 U/L (7.0-40); AST/SGOT 54 U/L (<34); BILIRUBIN,TOTAL 0.7 MG/DL (0.3-1.2); BLOOD UREA NITROGEN 25 MG/DL (9-23); CALCIUM LEVEL 9.2 MG/DL (8.3-10.6); CARBON DIOXIDE LEVEL 28 MMOL/L (20-31); CHLORIDE LEVEL 98 MMOL/L (98-107); CREATININE FOR GFR 0.71 MG/DL (0.70-1.30); GLOMERULAR FILTRATION RATE > 60.0 (>42); GLUCOSE, FASTING 183 MG/DL (74-106); POTASSIUM SERUM 5.2 MMOL/L (3.5-5.1); SODIUM LEVEL 134 MMOL/L (136-145); TOTAL PROTEIN 6.2 G/DL (5.7-8.2)
[2022-12-24] MEDS: BUDESONIDE 0.5 MG/2 ML INHALATION SUSPENSION INH SCH ×2 (07:44→21:03)
[2022-12-24] MEDS: FORMOTEROL FUMARATE 20 MCG/2 ML INHALATION SOLUTION (PERFOROMIST) INH SCH ×2 (07:44→21:03)
[2022-12-24] MEDS: MULTIVITAMINS/MINERALS THERAP 1 TAB PO SCH (08:25)
[2022-12-24] MEDS: AUGMENTIN 875 MG TAB PO SCH ×2 (08:25→20:15)
[2022-12-24] MEDS: LACTOBACILLUS ACIDOPHILUS CAP (BACID) PO SCH ×2 (08:25→16:50)
[2022-12-24] MEDS: FINASTERIDE 5MG TAB PO SCH (08:25)
[2022-12-24] MEDS: BARICITINIB 2MG TABLET (OLUMIANT) FOR EUA PO SCH (08:25)
[2022-12-24] MEDS: METOPROLOL SUCC *XL* 25MG TAB (TopROL *XL*) PO SCH (08:26)
[2022-12-24] MEDS: PHENYTOIN ER 100 MG CAP PO SCH ×2 (08:26→20:15)
[2022-12-24] MEDS: FAMOTIDINE 20 MG TAB PO SCH (08:26)
[2022-12-24] MEDS: MIRALAX *UNIT DOSE* 17GM PACKET PO SCH ×2 (08:26→20:16)
[2022-12-24] MEDS: METAMUCIL (PSYLLIUM) PACKET PO SCH ×2 (08:27→20:16)
[2022-12-24] MEDS: ENOXAPARIN 40MG/0.4ML SYRINGE (J1650 PER 10MG) SC SCH (09:00)
[2022-12-24 14:00] VITALS: BP 117/69
[2022-12-24] MEDS: ATORVASTATIN 20 MG TAB PO SCH (20:15)
[2022-12-24] MEDS: TAMSULOSIN 0.4 MG CAP PO SCH (20:16)
[2022-12-24 21:30] VITALS: BP 169/95
[2022-12-24 21:31] VITALS: BP 154/88
[2022-12-25] MEDS: guaiFENesin 200 MG TAB PO SCH ×6 (00:45→20:23)
[2022-12-25] MEDS: methylPREDNISolone 125MG 2ML VIAL IV SCH ×3 (00:45→18:34)
[2022-12-25] MEDS: IPRATROPIUM 0.02% SOLN 0.5MG 2.5ML NEB INH SCH ×4 (02:25→20:33)
[2022-12-25] MEDS: LEVALBUTEROL 1.25MG 0.5ML CONCENTRATE NEB INH SCH ×4 (02:25→20:33)
[2022-12-25 04:51] VITALS: BP 136/74
[2022-12-25] MEDS: LevoFLOXacin 750 MG TABLET PO SCH (04:51)
[2022-12-25 06:41] LABS: BASO % 0.2 % (0.0-1.0); EOS % 0.2 % (0.0-3.0); HEMATOCRIT 42.3 % (42.0-52.0); HEMOGLOBIN 14.4 g/dl (13.5-17.5); LYMPH # 1.1 10^3/uL (1.5-5.0); LYMPH % 11.7 % (24.0-44.0); MEAN CORPUSCULAR HEMOGLOBIN 31.1 pg (27.0-33.0); MEAN CORPUSCULAR VOLUME 91.4 fl (80.0-96.0); MONO # 0.6 10^3/uL (0.0-0.8); MONO % 5.8 % (2.0-8.0); NEUTROPHILS # 7.8 10^3/uL (1.5-8.5); NEUTROPHILS % 81.1 % (36.0-66.0); PLATELET COUNT, AUTOMATED 286 10^3/uL (150-450); RED BLOOD COUNT 4.63 10^6/uL (4.30-6.10); WHITE BLOOD COUNT 9.6 10^3/uL (4.0-10.0)
[2022-12-25 07:09] LABS: ALBUMIN 3.2 G/DL (3.2-5.2); ALKALINE PHOSPHATASE 80 U/L (46-116); ALT/SGPT 67 U/L (7.0-40); AST/SGOT 36 U/L (<34); BILIRUBIN,TOTAL 0.6 MG/DL (0.3-1.2); BLOOD UREA NITROGEN 23 MG/DL (9-23); CALCIUM LEVEL 9.1 MG/DL (8.3-10.6); CARBON DIOXIDE LEVEL 30 MMOL/L (20-31); CHLORIDE LEVEL 98 MMOL/L (98-107); CREATININE FOR GFR 0.69 MG/DL (0.70-1.30); GLOMERULAR FILTRATION RATE > 60.0 (>42); GLUCOSE, FASTING 193 MG/DL (74-106); POTASSIUM SERUM 4.9 MMOL/L (3.5-5.1); SODIUM LEVEL 134 MMOL/L (136-145)
[2022-12-25] MEDS: BUDESONIDE 0.5 MG/2 ML INHALATION SUSPENSION INH SCH ×2 (07:14→20:33)
[2022-12-25] MEDS: FORMOTEROL FUMARATE 20 MCG/2 ML INHALATION SOLUTION (PERFOROMIST) INH SCH ×2 (07:14→20:33)
[2022-12-25] MEDS ORDERED: FUROSEMIDE 40MG/4ML VIAL IV ONE (08:00)
[2022-12-25] MEDS: MIRALAX *UNIT DOSE* 17GM PACKET PO SCH ×2 (09:00→20:17)
[2022-12-25] MEDS: ENOXAPARIN 40MG/0.4ML SYRINGE (J1650 PER 10MG) SC SCH (10:07)
[2022-12-25] MEDS: METAMUCIL (PSYLLIUM) PACKET PO SCH ×2 (10:07→20:17)
[2022-12-25] MEDS: AUGMENTIN 875 MG TAB PO SCH ×2 (10:08→20:15)
[2022-12-25] MEDS: LACTOBACILLUS ACIDOPHILUS CAP (BACID) PO SCH ×2 (10:08→18:33)
[2022-12-25] MEDS: METOPROLOL SUCC *XL* 25MG TAB (TopROL *XL*) PO SCH (10:08)
[2022-12-25] MEDS: BARICITINIB 2MG TABLET (OLUMIANT) FOR EUA PO SCH (10:08)
[2022-12-25] MEDS: MULTIVITAMINS/MINERALS THERAP 1 TAB PO SCH (10:08)
[2022-12-25] MEDS: PHENYTOIN ER 100 MG CAP PO SCH ×2 (10:09→20:15)
[2022-12-25] MEDS: FAMOTIDINE 20 MG TAB PO SCH (10:09)
[2022-12-25] MEDS: FINASTERIDE 5MG TAB PO SCH (10:09)
[2022-12-25 14:00] VITALS: BP 77/64
[2022-12-25 16:00] VITALS: BP 132/88
[2022-12-25 20:15] VITALS: BP 113/66
[2022-12-25] MEDS: TAMSULOSIN 0.4 MG CAP PO SCH (20:15)
[2022-12-25] MEDS: ATORVASTATIN 20 MG TAB PO SCH (20:16)
[2022-12-25] MEDS: oxyCODONE 5MG TAB PO PRN (20:24)
[2022-12-26] MEDS: guaiFENesin 200 MG TAB PO SCH ×6 (00:47→20:48)
[2022-12-26] MEDS: IPRATROPIUM 0.02% SOLN 0.5MG 2.5ML NEB INH SCH ×4 (02:36→20:00)
[2022-12-26] MEDS: LEVALBUTEROL 1.25MG 0.5ML CONCENTRATE NEB INH SCH ×4 (02:37→20:00)
[2022-12-26] MEDS: methylPREDNISolone 125MG 2ML VIAL IV SCH ×3 (02:55→18:09)
[2022-12-26] MEDS: LevoFLOXacin 750 MG TABLET PO SCH (05:19)
[2022-12-26 05:20] VITALS: BP 115/69
[2022-12-26 06:49] LABS: BASO % 0.1 % (0.0-1.0); EOS % 0.2 % (0.0-3.0); HEMATOCRIT 43.3 % (42.0-52.0); HEMOGLOBIN 14.6 g/dl (13.5-17.5); LYMPH # 0.8 10^3/uL (1.5-5.0); LYMPH % 7.6 % (24.0-44.0); MEAN CORPUSCULAR HEMOGLOBIN 30.8 pg (27.0-33.0); MEAN CORPUSCULAR HGB CONC 33.7 g/dl (32.0-36.5); MEAN CORPUSCULAR VOLUME 91.4 fl (80.0-96.0); MONO # 0.5 10^3/uL (0.0-0.8); MONO % 4.8 % (2.0-8.0); NEUTROPHILS # 9.5 10^3/uL (1.5-8.5); NEUTROPHILS % 86.5 % (36.0-66.0); PLATELET COUNT, AUTOMATED 288 10^3/uL (150-450); RED BLOOD COUNT 4.74 10^6/uL (4.30-6.10)
[2022-12-26 07:09] LABS: ALBUMIN 3.2 G/DL (3.2-5.2); ALKALINE PHOSPHATASE 79 U/L (46-116); ALT/SGPT 65 U/L (7.0-40); AST/SGOT 31 U/L (<34); BILIRUBIN,TOTAL 0.6 MG/DL (0.3-1.2); BLOOD UREA NITROGEN 22 MG/DL (9-23); CARBON DIOXIDE LEVEL 31 MMOL/L (20-31); CHLORIDE LEVEL 96 MMOL/L (98-107); CREATININE FOR GFR 0.66 MG/DL (0.70-1.30); GLOMERULAR FILTRATION RATE > 60.0 (>42); GLUCOSE, FASTING 164 MG/DL (74-106); POTASSIUM SERUM 4.5 MMOL/L (3.5-5.1); SODIUM LEVEL 133 MMOL/L (136-145); TOTAL PROTEIN 6.1 G/DL (5.7-8.2)
[2022-12-26] MEDS: FORMOTEROL FUMARATE 20 MCG/2 ML INHALATION SOLUTION (PERFOROMIST) INH SCH ×2 (07:15→20:13)
[2022-12-26] MEDS: BUDESONIDE 0.5 MG/2 ML INHALATION SUSPENSION INH SCH ×2 (07:15→20:13)
[2022-12-26] MEDS: MIRALAX *UNIT DOSE* 17GM PACKET PO SCH ×2 (09:00→20:49)
[2022-12-26] MEDS: METAMUCIL (PSYLLIUM) PACKET PO SCH ×2 (09:00→20:48)
[2022-12-26] MEDS: BARICITINIB 2MG TABLET (OLUMIANT) FOR EUA PO SCH (09:30)
[2022-12-26] MEDS: LACTOBACILLUS ACIDOPHILUS CAP (BACID) PO SCH ×2 (09:30→18:09)
[2022-12-26] MEDS: ENOXAPARIN 40MG/0.4ML SYRINGE (J1650 PER 10MG) SC SCH (09:30)
[2022-12-26] MEDS: METOPROLOL SUCC *XL* 25MG TAB (TopROL *XL*) PO SCH (09:33)
[2022-12-26] MEDS: AUGMENTIN 875 MG TAB PO SCH (09:33)
[2022-12-26] MEDS: FINASTERIDE 5MG TAB PO SCH (09:34)
[2022-12-26] MEDS: FAMOTIDINE 20 MG TAB PO SCH (09:34)
[2022-12-26] MEDS: MULTIVITAMINS/MINERALS THERAP 1 TAB PO SCH (09:34)
[2022-12-26] MEDS: PHENYTOIN ER 100 MG CAP PO SCH ×2 (09:34→20:48)
[2022-12-26 14:00] VITALS: BP 142/88
[2022-12-26] MEDS: oxyCODONE 5MG TAB PO PRN (20:47)
[2022-12-26] MEDS: TAMSULOSIN 0.4 MG CAP PO SCH (20:48)
[2022-12-26] MEDS: ATORVASTATIN 20 MG TAB PO SCH (20:48)
[2022-12-26 22:02] VITALS: BP 120/75
[2022-12-27] MEDS: guaiFENesin 200 MG TAB PO SCH ×6 (00:23→20:51)
[2022-12-27] MEDS: methylPREDNISolone 125MG 2ML VIAL IV SCH ×3 (01:43→20:49)
[2022-12-27] MEDS: IPRATROPIUM 0.02% SOLN 0.5MG 2.5ML NEB INH SCH ×4 (02:00→19:57)
[2022-12-27] MEDS: LEVALBUTEROL 1.25MG 0.5ML CONCENTRATE NEB INH SCH ×4 (02:00→19:57)
[2022-12-27 05:20] VITALS: BP 116/69
[2022-12-27 06:26] LABS: BASO % 0.1 % (0.0-1.0); EOS % 0.1 % (0.0-3.0); HEMATOCRIT 42.7 % (42.0-52.0); HEMOGLOBIN 14.6 g/dl (13.5-17.5); LYMPH # 0.7 10^3/uL (1.5-5.0); LYMPH % 6.3 % (24.0-44.0); MEAN CORPUSCULAR HEMOGLOBIN 31.3 pg (27.0-33.0); MEAN CORPUSCULAR HGB CONC 34.2 g/dl (32.0-36.5); MEAN CORPUSCULAR VOLUME 91.6 fl (80.0-96.0); MONO # 0.6 10^3/uL (0.0-0.8); MONO % 5.3 % (2.0-8.0); NEUTROPHILS # 9.7 10^3/uL (1.5-8.5); NEUTROPHILS % 87.5 % (36.0-66.0); PLATELET COUNT, AUTOMATED 296 10^3/uL (150-450); RED BLOOD COUNT 4.66 10^6/uL (4.30-6.10)
[2022-12-27 06:56] LABS: ALBUMIN 3.2 G/DL (3.2-5.2); ALKALINE PHOSPHATASE 86 U/L (46-116); ALT/SGPT 67 U/L (7.0-40); AST/SGOT 31 U/L (<34); BILIRUBIN,TOTAL 0.5 MG/DL (0.3-1.2); BLOOD UREA NITROGEN 25 MG/DL (9-23); CALCIUM LEVEL 9.4 MG/DL (8.3-10.6); CARBON DIOXIDE LEVEL 30 MMOL/L (20-31); CHLORIDE LEVEL 98 MMOL/L (98-107); CREATININE FOR GFR 0.71 MG/DL (0.70-1.30); GLOMERULAR FILTRATION RATE > 60.0 (>42); GLUCOSE, FASTING 184 MG/DL (74-106); POTASSIUM SERUM 4.8 MMOL/L (3.5-5.1); SODIUM LEVEL 133 MMOL/L (136-145)
[2022-12-27] MEDS: BUDESONIDE 0.5 MG/2 ML INHALATION SUSPENSION INH SCH ×2 (07:56→19:57)
[2022-12-27] MEDS: FORMOTEROL FUMARATE 20 MCG/2 ML INHALATION SOLUTION (PERFOROMIST) INH SCH ×2 (07:56→19:57)
[2022-12-27 07:57] VITALS: O2SAT 88
[2022-12-27 08:10] VITALS: O2SAT 94
[2022-12-27] MEDS: MIRALAX *UNIT DOSE* 17GM PACKET PO SCH ×2 (09:00→20:51)
[2022-12-27] MEDS: METAMUCIL (PSYLLIUM) PACKET PO SCH ×2 (09:00→20:51)
[2022-12-27] MEDS: ENOXAPARIN 40MG/0.4ML SYRINGE (J1650 PER 10MG) SC SCH (09:20)
[2022-12-27] MEDS: METOPROLOL SUCC *XL* 25MG TAB (TopROL *XL*) PO SCH (09:21)
[2022-12-27] MEDS: LACTOBACILLUS ACIDOPHILUS CAP (BACID) PO SCH ×2 (09:21→17:02)
[2022-12-27] MEDS: FINASTERIDE 5MG TAB PO SCH (09:21)
[2022-12-27] MEDS: FAMOTIDINE 20 MG TAB PO SCH (09:21)
[2022-12-27] MEDS: PHENYTOIN ER 100 MG CAP PO SCH ×2 (09:21→20:51)
[2022-12-27] MEDS: BARICITINIB 2MG TABLET (OLUMIANT) FOR EUA PO SCH (09:21)
[2022-12-27] MEDS: MULTIVITAMINS/MINERALS THERAP 1 TAB PO SCH (09:22)
[2022-12-27] MEDS ORDERED: ISOVUE-370 76% 100ML VIAL As Ordered ONE (13:02)
[2022-12-27 14:00] VITALS: BP 137/71
[2022-12-27] MEDS ORDERED: COMBIVENT RESPIMAT 100-20MCG INHALER 4GM INH SCH (14:00)
[2022-12-27 19:52] VITALS: BP 133/72
[2022-12-27] MEDS: TAMSULOSIN 0.4 MG CAP PO SCH (20:49)
[2022-12-27] MEDS: ATORVASTATIN 20 MG TAB PO SCH (20:49)
[2022-12-27] MEDS: oxyCODONE 5MG TAB PO PRN (20:50)
[2022-12-28] MEDS: guaiFENesin 200 MG TAB PO SCH ×6 (00:27→20:15)
[2022-12-28] MEDS: IPRATROPIUM 0.02% SOLN 0.5MG 2.5ML NEB INH SCH ×4 (01:43→21:52)
[2022-12-28] MEDS: LEVALBUTEROL 1.25MG 0.5ML CONCENTRATE NEB INH SCH ×4 (01:43→21:53)
[2022-12-28 05:13] VITALS: BP 117/64
[2022-12-28 06:01] LABS: BASO % 0.1 % (0.0-1.0); EOS % 0.3 % (0.0-3.0); HEMATOCRIT 43.6 % (42.0-52.0); HEMOGLOBIN 14.8 g/dl (13.5-17.5); LYMPH # 1.8 10^3/uL (1.5-5.0); LYMPH % 13.8 % (24.0-44.0); MEAN CORPUSCULAR HEMOGLOBIN 31.2 pg (27.0-33.0); MEAN CORPUSCULAR HGB CONC 33.9 g/dl (32.0-36.5); MEAN CORPUSCULAR VOLUME 91.8 fl (80.0-96.0); MONO # 0.9 10^3/uL (0.0-0.8); MONO % 7.2 % (2.0-8.0); NEUTROPHILS # 9.9 10^3/uL (1.5-8.5); PLATELET COUNT, AUTOMATED 301 10^3/uL (150-450); RED BLOOD COUNT 4.75 10^6/uL (4.30-6.10); WHITE BLOOD COUNT 12.7 10^3/uL (4.0-10.0)
[2022-12-28 06:26] LABS: ALBUMIN 3.3 G/DL (3.2-5.2); ALKALINE PHOSPHATASE 86 U/L (46-116); ALT/SGPT 62 U/L (7.0-40); AST/SGOT 28 U/L (<34); BILIRUBIN,TOTAL 0.5 MG/DL (0.3-1.2); BLOOD UREA NITROGEN 24 MG/DL (9-23); CALCIUM LEVEL 9.3 MG/DL (8.3-10.6); CARBON DIOXIDE LEVEL 31 MMOL/L (20-31); CHLORIDE LEVEL 97 MMOL/L (98-107); GLOMERULAR FILTRATION RATE > 60.0 (>42); GLUCOSE, FASTING 141 MG/DL (74-106); POTASSIUM SERUM 4.6 MMOL/L (3.5-5.1); SODIUM LEVEL 134 MMOL/L (136-145)
[2022-12-28] MEDS: FORMOTEROL FUMARATE 20 MCG/2 ML INHALATION SOLUTION (PERFOROMIST) INH SCH ×2 (07:50→22:03)
[2022-12-28] MEDS: BUDESONIDE 0.5 MG/2 ML INHALATION SUSPENSION INH SCH ×2 (07:50→22:03)
[2022-12-28] MEDS: BARICITINIB 2MG TABLET (OLUMIANT) FOR EUA PO SCH (08:56)
[2022-12-28] MEDS: LACTOBACILLUS ACIDOPHILUS CAP (BACID) PO SCH ×2 (08:56→16:53)
[2022-12-28] MEDS: PHENYTOIN ER 100 MG CAP PO SCH ×2 (08:56→20:14)
[2022-12-28] MEDS: MULTIVITAMINS/MINERALS THERAP 1 TAB PO SCH (08:56)
[2022-12-28] MEDS: FAMOTIDINE 20 MG TAB PO SCH (08:57)
[2022-12-28] MEDS: ENOXAPARIN 40MG/0.4ML SYRINGE (J1650 PER 10MG) SC SCH (08:57)
[2022-12-28] MEDS: FINASTERIDE 5MG TAB PO SCH (08:57)
[2022-12-28] MEDS: METAMUCIL (PSYLLIUM) PACKET PO SCH ×2 (08:58→20:27)
[2022-12-28] MEDS: METOPROLOL SUCC *XL* 25MG TAB (TopROL *XL*) PO SCH (08:58)
[2022-12-28] MEDS: MIRALAX *UNIT DOSE* 17GM PACKET PO SCH ×2 (08:58→20:27)
[2022-12-28] MEDS: methylPREDNISolone 125MG 2ML VIAL IV SCH ×2 (08:59→20:15)
[2022-12-28 14:30] VITALS: BP 131/70
[2022-12-28] MEDS: NYSTATIN 500,000U/5ML SUSP UDC SS SCH (20:14)
[2022-12-28] MEDS: ATORVASTATIN 20 MG TAB PO SCH (20:14)
[2022-12-28] MEDS: TAMSULOSIN 0.4 MG CAP PO SCH (20:14)
[2022-12-28] MEDS: oxyCODONE 5MG TAB PO PRN (20:35)
[2022-12-28 21:49] VITALS: BP 144/78
[2022-12-29] MEDS: guaiFENesin 200 MG TAB PO SCH ×6 (00:06→19:56)
[2022-12-29] MEDS: IPRATROPIUM 0.02% SOLN 0.5MG 2.5ML NEB INH SCH ×4 (01:11→20:58)
[2022-12-29] MEDS: LEVALBUTEROL 1.25MG 0.5ML CONCENTRATE NEB INH SCH ×5 (01:11→20:58)
[2022-12-29 05:38] VITALS: BP 139/81
[2022-12-29 07:03] LABS: HEMATOCRIT 42.8 % (42.0-52.0); HEMOGLOBIN 14.5 g/dl (13.5-17.5); MEAN CORPUSCULAR HGB CONC 33.9 g/dl (32.0-36.5); MEAN CORPUSCULAR VOLUME 91.5 fl (80.0-96.0); PLATELET COUNT, AUTOMATED 283 10^3/uL (150-450); RED BLOOD COUNT 4.68 10^6/uL (4.30-6.10); WHITE BLOOD COUNT 12.8 10^3/uL (4.0-10.0)
[2022-12-29 07:33] LABS: ALBUMIN 3.2 G/DL (3.2-5.2); ALKALINE PHOSPHATASE 94 U/L (46-116); ALT/SGPT 63 U/L (7.0-40); AST/SGOT 32 U/L (<34); BILIRUBIN,TOTAL 0.5 MG/DL (0.3-1.2); BLOOD UREA NITROGEN 21 MG/DL (9-23); CALCIUM LEVEL 8.8 MG/DL (8.3-10.6); CARBON DIOXIDE LEVEL 29 MMOL/L (20-31); CHLORIDE LEVEL 99 MMOL/L (98-107); CREATININE FOR GFR 0.56 MG/DL (0.70-1.30); GLOMERULAR FILTRATION RATE > 60.0 (>42); GLUCOSE, FASTING 106 MG/DL (74-106); POTASSIUM SERUM 4.5 MMOL/L (3.5-5.1); SODIUM LEVEL 133 MMOL/L (136-145); TOTAL PROTEIN 5.8 G/DL (5.7-8.2)
[2022-12-29] MEDS: FORMOTEROL FUMARATE 20 MCG/2 ML INHALATION SOLUTION (PERFOROMIST) INH SCH ×2 (08:11→20:57)
[2022-12-29] MEDS: BUDESONIDE 0.5 MG/2 ML INHALATION SUSPENSION INH SCH ×2 (08:11→20:58)
[2022-12-29] MEDS: NYSTATIN 500,000U/5ML SUSP UDC SS SCH ×4 (08:46→19:56)
[2022-12-29] MEDS: methylPREDNISolone 125MG 2ML VIAL IV SCH ×2 (08:46→19:57)
[2022-12-29] MEDS: FAMOTIDINE 20 MG TAB PO SCH (08:47)
[2022-12-29] MEDS: MULTIVITAMINS/MINERALS THERAP 1 TAB PO SCH (08:47)
[2022-12-29] MEDS: FINASTERIDE 5MG TAB PO SCH (08:47)
[2022-12-29] MEDS: LACTOBACILLUS ACIDOPHILUS CAP (BACID) PO SCH ×2 (08:47→16:35)
[2022-12-29] MEDS: PHENYTOIN ER 100 MG CAP PO SCH ×2 (08:47→19:55)
[2022-12-29] MEDS: FLUCONAZOLE 100 MG TAB PO SCH (08:47)
[2022-12-29] MEDS: MIRALAX *UNIT DOSE* 17GM PACKET PO SCH ×2 (08:50→20:05)
[2022-12-29] MEDS: METOPROLOL SUCC *XL* 25MG TAB (TopROL *XL*) PO SCH (08:50)
[2022-12-29] MEDS: METAMUCIL (PSYLLIUM) PACKET PO SCH ×2 (08:50→20:05)
[2022-12-29 14:15] VITALS: BP 133/72
[2022-12-29] MEDS: ATORVASTATIN 20 MG TAB PO SCH (19:55)
[2022-12-29] MEDS: oxyCODONE 5MG TAB PO PRN (19:56)
[2022-12-29] MEDS: TAMSULOSIN 0.4 MG CAP PO SCH (19:56)
[2022-12-29 20:00] VITALS: BP 117/75
[2022-12-30] MEDS: guaiFENesin 200 MG TAB PO SCH ×6 (00:06→20:00)
[2022-12-30] MEDS: IPRATROPIUM 0.02% SOLN 0.5MG 2.5ML NEB INH SCH ×4 (02:48→20:28)
[2022-12-30] MEDS: LEVALBUTEROL 1.25MG 0.5ML CONCENTRATE NEB INH SCH ×4 (02:49→20:28)
[2022-12-30 04:55] VITALS: BP 119/73
[2022-12-30 06:45] LABS: HEMATOCRIT 43.3 % (42.0-52.0); HEMOGLOBIN 14.3 g/dl (13.5-17.5); MEAN CORPUSCULAR HEMOGLOBIN 30.7 pg (27.0-33.0); MEAN CORPUSCULAR VOLUME 92.9 fl (80.0-96.0); PLATELET COUNT, AUTOMATED 292 10^3/uL (150-450); RED BLOOD COUNT 4.66 10^6/uL (4.30-6.10); WHITE BLOOD COUNT 12.7 10^3/uL (4.0-10.0)
[2022-12-30 07:07] LABS: ALBUMIN 3.3 G/DL (3.2-5.2); ALKALINE PHOSPHATASE 103 U/L (46-116); ALT/SGPT 62 U/L (7.0-40); AST/SGOT 24 U/L (<34); BILIRUBIN,TOTAL 0.5 MG/DL (0.3-1.2); BLOOD UREA NITROGEN 22 MG/DL (9-23); CALCIUM LEVEL 9.3 MG/DL (8.3-10.6); CARBON DIOXIDE LEVEL 32 MMOL/L (20-31); CHLORIDE LEVEL 98 MMOL/L (98-107); CREATININE FOR GFR 0.67 MG/DL (0.70-1.30); GLOMERULAR FILTRATION RATE > 60.0 (>42); GLUCOSE, FASTING 161 MG/DL (74-106); POTASSIUM SERUM 5.2 MMOL/L (3.5-5.1); SODIUM LEVEL 136 MMOL/L (136-145)
[2022-12-30] MEDS: BUDESONIDE 0.5 MG/2 ML INHALATION SUSPENSION INH SCH (07:20)
[2022-12-30] MEDS: FORMOTEROL FUMARATE 20 MCG/2 ML INHALATION SOLUTION (PERFOROMIST) INH SCH (07:20)
[2022-12-30 07:52] VITALS: BP 134/80
[2022-12-30] MEDS: MIRALAX *UNIT DOSE* 17GM PACKET PO SCH ×2 (09:00→20:39)
[2022-12-30] MEDS: FLUCONAZOLE 100 MG TAB PO SCH (09:17)
[2022-12-30] MEDS: PHENYTOIN ER 100 MG CAP PO SCH ×2 (09:18→20:00)
[2022-12-30] MEDS: MULTIVITAMINS/MINERALS THERAP 1 TAB PO SCH (09:18)
[2022-12-30] MEDS: FINASTERIDE 5MG TAB PO SCH (09:18)
[2022-12-30] MEDS: METOPROLOL SUCC *XL* 25MG TAB (TopROL *XL*) PO SCH (09:19)
[2022-12-30] MEDS: FAMOTIDINE 20 MG TAB PO SCH (09:19)
[2022-12-30] MEDS: LACTOBACILLUS ACIDOPHILUS CAP (BACID) PO SCH ×2 (09:20→17:28)
[2022-12-30] MEDS: NYSTATIN 500,000U/5ML SUSP UDC SS SCH ×4 (09:21→20:01)
[2022-12-30] MEDS: METAMUCIL (PSYLLIUM) PACKET PO SCH ×2 (09:27→20:39)
[2022-12-30] MEDS: methylPREDNISolone 125MG 2ML VIAL IV SCH (11:42)
[2022-12-30 12:15] VITALS: BP 130/60
[2022-12-30] MEDS: TIOTROPIUM INHALER/CAPSULE (SPIRIVA) INH SCH (13:18)
[2022-12-30 13:19] VITALS: BP 141/86
[2022-12-30] MEDS: ATORVASTATIN 20 MG TAB PO SCH (20:00)
[2022-12-30] MEDS: TAMSULOSIN 0.4 MG CAP PO SCH (20:00)
[2022-12-30] MEDS: oxyCODONE 5MG TAB PO PRN (20:03)
[2022-12-30 22:00] VITALS: BP 132/73
[2022-12-31] MEDS: guaiFENesin 200 MG TAB PO SCH ×7 (00:09→23:55)
[2022-12-31] MEDS: LEVALBUTEROL 1.25MG 0.5ML CONCENTRATE NEB INH SCH ×4 (01:23→20:06)
[2022-12-31] MEDS: IPRATROPIUM 0.02% SOLN 0.5MG 2.5ML NEB INH SCH ×4 (01:23→20:06)
[2022-12-31 06:00] VITALS: BP 110/65
[2022-12-31 06:29] LABS: HEMATOCRIT 42.1 % (42.0-52.0); MEAN CORPUSCULAR HEMOGLOBIN 30.8 pg (27.0-33.0); MEAN CORPUSCULAR HGB CONC 33.3 g/dl (32.0-36.5); MEAN CORPUSCULAR VOLUME 92.7 fl (80.0-96.0); PLATELET COUNT, AUTOMATED 250 10^3/uL (150-450); RED BLOOD COUNT 4.54 10^6/uL (4.30-6.10); WHITE BLOOD COUNT 12.4 10^3/uL (4.0-10.0)
[2022-12-31 07:01] LABS: ALBUMIN 3.1 G/DL (3.2-5.2); ALKALINE PHOSPHATASE 100 U/L (46-116); ALT/SGPT 68 U/L (7.0-40); AST/SGOT 36 U/L (<34); BILIRUBIN,TOTAL 0.4 MG/DL (0.3-1.2); BLOOD UREA NITROGEN 27 MG/DL (9-23); CALCIUM LEVEL 8.6 MG/DL (8.3-10.6); CARBON DIOXIDE LEVEL 29 MMOL/L (20-31); CHLORIDE LEVEL 99 MMOL/L (98-107); CREATININE FOR GFR 0.62 MG/DL (0.70-1.30); GLOMERULAR FILTRATION RATE > 60.0 (>42); GLUCOSE, FASTING 119 MG/DL (74-106); POTASSIUM SERUM 4.5 MMOL/L (3.5-5.1); SODIUM LEVEL 134 MMOL/L (136-145); TOTAL PROTEIN 5.6 G/DL (5.7-8.2)
[2022-12-31] MEDS: TIOTROPIUM INHALER/CAPSULE (SPIRIVA) INH SCH (07:19)
[2022-12-31] MEDS ORDERED: RISATAB3 PO (07:25)
[2022-12-31] MEDS ORDERED: FLUC100T3 PO (07:25)
[2022-12-31] MEDS ORDERED: SENN-186 PO (07:25)
[2022-12-31] MEDS ORDERED: COLA100C5 PO (07:25)
[2022-12-31] MEDS ORDERED: MIRA3350 PO (07:25)
[2022-12-31] MEDS ORDERED: PRED20TA PO (07:25)
[2022-12-31] MEDS ORDERED: NYST-38 SS (07:25)
[2022-12-31] MEDS ORDERED: MUCI600T31 PO (07:29)
[2022-12-31] MEDS: FAMOTIDINE 20 MG TAB PO SCH (08:40)
[2022-12-31] MEDS: MULTIVITAMINS/MINERALS THERAP 1 TAB PO SCH (08:40)
[2022-12-31] MEDS: FLUCONAZOLE 100 MG TAB PO SCH (08:40)
[2022-12-31] MEDS: PHENYTOIN ER 100 MG CAP PO SCH ×2 (08:41→20:32)
[2022-12-31] MEDS: NYSTATIN 500,000U/5ML SUSP UDC SS SCH ×4 (08:41→20:31)
[2022-12-31] MEDS: FINASTERIDE 5MG TAB PO SCH (08:41)
[2022-12-31] MEDS: METOPROLOL SUCC *XL* 25MG TAB (TopROL *XL*) PO SCH (08:42)
[2022-12-31] MEDS: LACTOBACILLUS ACIDOPHILUS CAP (BACID) PO SCH ×2 (08:42→17:20)
[2022-12-31] MEDS: METAMUCIL (PSYLLIUM) PACKET PO SCH ×2 (08:44→20:36)
[2022-12-31] MEDS: predniSONE 20 MG TAB PO SCH (08:44)
[2022-12-31] MEDS: MIRALAX *UNIT DOSE* 17GM PACKET PO SCH ×2 (08:45→20:36)
[2022-12-31 14:19] VITALS: BP 111/74
[2022-12-31] MEDS: TAMSULOSIN 0.4 MG CAP PO SCH (20:32)
[2022-12-31] MEDS: ATORVASTATIN 20 MG TAB PO SCH (20:32)
[2022-12-31] MEDS: oxyCODONE 5MG TAB PO PRN (20:33)
[2022-12-31 21:33] VITALS: BP 147/80
[2023-01-01] MEDS: IPRATROPIUM 0.02% SOLN 0.5MG 2.5ML NEB INH SCH ×2 (02:16→08:02)
[2023-01-01] MEDS: LEVALBUTEROL 1.25MG 0.5ML CONCENTRATE NEB INH SCH ×2 (02:16→08:01)
[2023-01-01] MEDS: guaiFENesin 200 MG TAB PO SCH ×2 (04:43→08:49)
[2023-01-01 06:00] VITALS: BP 113/69
[2023-01-01 06:56] LABS: HEMATOCRIT 42.9 % (42.0-52.0); HEMOGLOBIN 14.1 g/dl (13.5-17.5); MEAN CORPUSCULAR HEMOGLOBIN 31.2 pg (27.0-33.0); MEAN CORPUSCULAR HGB CONC 32.9 g/dl (32.0-36.5); MEAN CORPUSCULAR VOLUME 94.9 fl (80.0-96.0); PLATELET COUNT, AUTOMATED 194 10^3/uL (150-450); RED BLOOD COUNT 4.52 10^6/uL (4.30-6.10); WHITE BLOOD COUNT 10.7 10^3/uL (4.0-10.0)
[2023-01-01 07:15] LABS: ALKALINE PHOSPHATASE 94 U/L (46-116); ALT/SGPT 81 U/L (7.0-40); AST/SGOT 47 U/L (<34); BILIRUBIN,TOTAL 0.4 MG/DL (0.3-1.2); BLOOD UREA NITROGEN 20 MG/DL (9-23); CALCIUM LEVEL 8.8 MG/DL (8.3-10.6); CARBON DIOXIDE LEVEL 31 MMOL/L (20-31); CHLORIDE LEVEL 98 MMOL/L (98-107); CREATININE FOR GFR 0.62 MG/DL (0.70-1.30); GLOMERULAR FILTRATION RATE > 60.0 (>42); GLUCOSE, FASTING 123 MG/DL (74-106); POTASSIUM SERUM 4.7 MMOL/L (3.5-5.1); SODIUM LEVEL 134 MMOL/L (136-145); TOTAL PROTEIN 5.5 G/DL (5.7-8.2)
[2023-01-01] MEDS: TIOTROPIUM INHALER/CAPSULE (SPIRIVA) INH SCH (08:01)
[2023-01-01 08:02] VITALS: O2SAT 92
[2023-01-01] MEDS: FLUCONAZOLE 100 MG TAB PO SCH (08:49)
[2023-01-01] MEDS: NYSTATIN 500,000U/5ML SUSP UDC SS SCH (08:49)
[2023-01-01] MEDS: predniSONE 20 MG TAB PO SCH (08:49)
[2023-01-01 08:50] VITALS: BP 124/71
[2023-01-01] MEDS: METOPROLOL SUCC *XL* 25MG TAB (TopROL *XL*) PO SCH (08:50)
[2023-01-01] MEDS: FINASTERIDE 5MG TAB PO SCH (08:50)
[2023-01-01] MEDS: MULTIVITAMINS/MINERALS THERAP 1 TAB PO SCH (08:50)
[2023-01-01] MEDS: MIRALAX *UNIT DOSE* 17GM PACKET PO SCH (08:50)
[2023-01-01] MEDS: FAMOTIDINE 20 MG TAB PO SCH (08:50)
[2023-01-01] MEDS: LACTOBACILLUS ACIDOPHILUS CAP (BACID) PO SCH (08:50)
[2023-01-01] MEDS: PHENYTOIN ER 100 MG CAP PO SCH (08:51)
[2023-01-01] MEDS: METAMUCIL (PSYLLIUM) PACKET PO SCH (08:51)
== END 2023-01-01 10:30 | disposition home health service (06) | DRG 177 ==
LOC: EDBD 13:18 → M ED 15:22 → M ED INP 17:15 → M MS5PR 19:50
PROVIDERS: ADMIT Family Medicine; ATTEND Internal Medicine
PROC: XW033E5 Introduction of Remdesivir Anti-infective into Peripheral Vein, Percutaneous Approach, New Technology Group 5 (ICD-10-PCS; 2022-12-14)
PROC: B246ZZZ Ultrasonography of Right and Left Heart (ICD-10-PCS; principal; 2022-12-15)
PROC: 0CJS8ZZ Inspection of Larynx, Via Natural or Artificial Opening Endoscopic (ICD-10-PCS; 2022-12-28)
DX: U07.1 COVID-19 (principal); J96.21 Acute and chronic respiratory failure with hypoxia; J96.22 Acute and chronic respiratory failure with hypercapnia; J44.1 Chronic obstructive pulmonary disease with (acute) exacerbation; M62.82 Rhabdomyolysis; M48.54XA Collapsed vertebra, not elsewhere classified, thoracic region, initial encounter for fracture; J44.0 Chronic obstructive pulmonary disease with (acute) lower respiratory infection; D68.32 Hemorrhagic disorder due to extrinsic circulating anticoagulants; B37.0 Candidal stomatitis; I25.10 Atherosclerotic heart disease of native coronary artery without angina pectoris; N40.0 Benign prostatic hyperplasia without lower urinary tract symptoms; Z66 Do not resuscitate; J84.10 Pulmonary fibrosis, unspecified; I70.0 Atherosclerosis of aorta; M79.81 Nontraumatic hematoma of soft tissue; K04.7 Periapical abscess without sinus; R26.81 Unsteadiness on feet; J20.9 Acute bronchitis, unspecified; F41.9 Anxiety disorder, unspecified; J34.2 Deviated nasal septum; Z95.5 Presence of coronary angioplasty implant and graft; Z99.81 Dependence on supplemental oxygen; Z87.891 Personal history of nicotine dependence; Z79.82 Long term (current) use of aspirin; Z79.899 Other long term (current) drug therapy; Z88.1 Allergy status to other antibiotic agents; Z97.0 Presence of artificial eye; Z89.612 Acquired absence of left leg above knee; Z88.2 Allergy status to sulfonamides; Z88.5 Allergy status to narcotic agent

== ENCOUNTER → 2023-01-25 | Outpatient (REF) | payer MEDICARE ==
[~2023-01-25] MED LIST changes: +ACET1TAB55 PO; +ATOR40TA75 PO; +AZIT500T5 PO; +COLA100C5 PO; +DIAZ10TA2 PO; +FAMO40TA3 PO; +FLUC100T3 PO; +IBUP1TAB7 PO; +IPRA0.00 NEB; +METO1TAB32 PO; +MIRA3350 PO; +MOLN200C PO; +MUCI600T31 PO; +OXYC-517 PO; +RAMI1CAP22 PO; +RISATAB3 PO; +SENN-186 PO; +VITMTA PO
[2023-01-25 18:03] LABS: ALBUMIN 3.4 G/DL (3.2-5.2); ALKALINE PHOSPHATASE 101 U/L (46-116); ALT/SGPT 54 U/L (7.0-40); AST/SGOT 31 U/L (<34); BILIRUBIN,TOTAL 0.6 MG/DL (0.3-1.2); BLOOD UREA NITROGEN 12 MG/DL (9-23); CALCIUM LEVEL 9.3 MG/DL (8.3-10.6); CARBON DIOXIDE LEVEL 32 MMOL/L (20-31); CHLORIDE LEVEL 102 MMOL/L (98-107); CHOLESTEROL LEVEL 144 MG/DL (<200); CHOLESTEROL RISK RATIO 2.91 (<5); CREATININE FOR GFR 0.62 MG/DL (0.70-1.30); GLOMERULAR FILTRATION RATE > 60.0 (>42); GLUCOSE, FASTING 141 MG/DL (74-106); HDL CHOLESTEROL 49.4 MG/DL (>40); LDL CHOLESTEROL 63.8 MG/DL (<100); NON-HDL-C 94.6 MG/DL; POTASSIUM SERUM 4.3 MMOL/L (3.5-5.1); SODIUM LEVEL 138 MMOL/L (136-145); TOTAL PROTEIN 6.6 G/DL (5.7-8.2); TRIGLYCERIDES LEVEL 154 MG/DL (<150)
[2023-01-25 18:07] LABS: BASO # 0.1 10^3/uL (0.0-0.2); EOS % 0.6 % (0.0-3.0); HEMATOCRIT 40.1 % (42.0-52.0); HEMOGLOBIN 13.5 g/dl (13.5-17.5); LYMPH # 1.4 10^3/uL (1.5-5.0); LYMPH % 27.6 % (24.0-44.0); MEAN CORPUSCULAR HEMOGLOBIN 31.9 pg (27.0-33.0); MEAN CORPUSCULAR HGB CONC 33.7 g/dl (32.0-36.5); MEAN CORPUSCULAR VOLUME 94.8 fl (80.0-96.0); MONO # 0.6 10^3/uL (0.0-0.8); MONO % 11.3 % (2.0-8.0); NEUTROPHILS # 2.9 10^3/uL (1.5-8.5); NEUTROPHILS % 58.1 % (36.0-66.0); PLATELET COUNT, AUTOMATED 212 10^3/uL (150-450); RED BLOOD COUNT 4.23 10^6/uL (4.30-6.10)
[2023-01-25 18:16] LABS: HEMOGLOBIN A1c 6.3 % (4.0-6.0)
== END ==
LOC: M SFHCCLAY 14:36
PROVIDERS: ATTEND Nurse Practitioner Family
DX: J44.1 Chronic obstructive pulmonary disease with (acute) exacerbation (principal); R42 Dizziness and giddiness; I95.1 Orthostatic hypotension; R73.03 Prediabetes; Z79.899 Other long term (current) drug therapy

== ENCOUNTER → 2023-10-17 | Outpatient (REF) | payer MEDICARE ==
[~2023-10-17] MED LIST changes: +DIAZ-654 PO; +FINA-48 PO; -PROS5TAB PO; -VALI10TA PO
[2023-10-17 18:19] LABS: ALBUMIN 3.5 G/DL (3.2-5.2); ALKALINE PHOSPHATASE 113 U/L (46-116); ALT/SGPT 115 U/L (7.0-40); AST/SGOT 78 U/L (<34); BILIRUBIN,TOTAL 0.7 MG/DL (0.3-1.2); BLOOD UREA NITROGEN 18 MG/DL (9-23); CALCIUM LEVEL 10.1 MG/DL (8.3-10.6); CARBON DIOXIDE LEVEL 35 MMOL/L (20-31); CHLORIDE LEVEL 103 MMOL/L (98-107); CHOLESTEROL LEVEL 117 MG/DL (<200); CHOLESTEROL RISK RATIO 2.75 (<5); CREATININE FOR GFR 0.91 MG/DL (0.70-1.30); GLOMERULAR FILTRATION RATE > 60.0 (>42); GLUCOSE, FASTING 199 MG/DL (74-106); HDL CHOLESTEROL 42.5 MG/DL (>40); LDL CHOLESTEROL 55.7 MG/DL (<100); NON-HDL-C 74.5 MG/DL; POTASSIUM SERUM 4.3 MMOL/L (3.5-5.1); SODIUM LEVEL 142 MMOL/L (136-145); TOTAL PROTEIN 6.6 G/DL (5.7-8.2); TRIGLYCERIDES LEVEL 94 MG/DL (<150)
[2023-10-17 18:25] LABS: HEMOGLOBIN A1c 5.9 % (4.0-6.0)
== END ==
LOC: M SFHCCLAY 12:10
PROVIDERS: ATTEND Nurse Practitioner Family
DX: G89.21 Chronic pain due to trauma (principal); R73.03 Prediabetes; J44.9 Chronic obstructive pulmonary disease, unspecified; Z79.899 Other long term (current) drug therapy

== ENCOUNTER 2023-12-21 03:28 | Inpatient (IN) | payer MEDICARE ==
[2023-12-21] VITALS (20 sets, daily range): BP systolic 103–136; BP diastolic 55–70; TEMP 98.9–100.4; O2SAT 87–98
[~2023-12-21] VITALS: Ht 175.3 cm; Wt 76.5 kg
[~2023-12-21 03:28] MED LIST changes: +IPRA0.00 INH; -IPRA0.00 NEB
[2023-12-21] MEDS: methylPREDNISolone 125MG 2ML VIAL IV ONE (03:53)
[2023-12-21 04:02] LABS: ABG O2 SATURATION 99.3 % (95.0-99.0); ABG PARTIAL PRESSURE O2 209.3 mmHg (75.0-100.0); ABG STANDARD HCO3 24.5 MMOL/L. (22.0-26.0); ABG pH (ARTERIAL) 7.267 UNITS (7.350-7.450)
[2023-12-21] MEDS: IPRATROPIUM 0.5MG/ALBUTEROL 2.5MG INH SOL UD 3ML (DUONEB) NEB PRN (04:07)
[2023-12-21 04:08] LABS: BASO % 0.5 % (0.0-1.0); EOS % 0.1 % (0.0-3.0); HEMATOCRIT 51.4 % (42.0-52.0); HEMOGLOBIN 16.8 g/dl (13.5-17.5); LYMPH # 0.6 10^3/uL (1.5-5.0); MEAN CORPUSCULAR HEMOGLOBIN 32.7 pg (27.0-33.0); MEAN CORPUSCULAR HGB CONC 32.7 g/dl (32.0-36.5); MEAN CORPUSCULAR VOLUME 100.2 fl (80.0-96.0); MONO # 1.2 10^3/uL (0.0-0.8); MONO % 13.9 % (2.0-8.0); NEUTROPHILS # 6.8 10^3/uL (1.5-8.5); PLATELET COUNT, AUTOMATED 137 10^3/uL (150-450); RED BLOOD COUNT 5.13 10^6/uL (4.30-6.10); WHITE BLOOD COUNT 8.7 10^3/uL (4.0-10.0)
[2023-12-21 04:28] LABS: ALBUMIN 3.6 G/DL (3.2-5.2); ALKALINE PHOSPHATASE 96 U/L (46-116); ALT/SGPT 94 U/L (7.0-40); AST/SGOT 73 U/L (<34); BILIRUBIN,DIRECT 0.3 MG/DL (<0.4); BILIRUBIN,TOTAL 0.6 MG/DL (0.3-1.2); BLOOD UREA NITROGEN 22 MG/DL (9-23); CARBON DIOXIDE LEVEL 35 MMOL/L (20-31); CHLORIDE LEVEL 100 MMOL/L (98-107); CK-MB VALUE MASS 8.7 NG/ML (<3.6); CREATININE FOR GFR 0.88 MG/DL (0.70-1.30); GLOMERULAR FILTRATION RATE > 60.0 (>42); GLUCOSE, FASTING 161 MG/DL (74-106); POTASSIUM SERUM 5.5 MMOL/L (3.5-5.1); SODIUM LEVEL 136 MMOL/L (136-145); TOTAL PROTEIN 7.2 G/DL (5.7-8.2)
[2023-12-21 04:32] LABS: CPK CREATINE PHOSPHOKINASE 252 U/L (46-171); MB/CK RELATIVE INDEX 3.45 (< OR =4)
[2023-12-21] MEDS: PIPERACILLIN/TAZOBACTAM SOD 4.5 GM in D5W MINI-BAG PLUS 50 ML IV ONE (05:15)
[2023-12-21 05:38] LABS: ABG BASE EXCESS 0.3 (-2.0-2.0); ABG HCO3 27.9 MMOL/L (22.0-26.0); ABG O2 SATURATION 92.8 % (95.0-99.0); ABG PARTIAL PRESSURE CO2 56.2 mmHg (35.0-45.0); ABG PARTIAL PRESSURE O2 64.4 mmHg (75.0-100.0); ABG STANDARD HCO3 24.6 MMOL/L. (22.0-26.0); ABG TOTAL CO2 29.6 MMOL/L (23.0-31.0); ABG pH (ARTERIAL) 7.314 UNITS (7.350-7.450)
[2023-12-21 06:47] LABS: CK-MB VALUE MASS 6.5 NG/ML (<3.6)
[2023-12-21 06:54] LABS: MB/CK RELATIVE INDEX 3.25 (< OR =4)
[2023-12-21] MEDS ORDERED: PRED10TA2 PO (08:08)
[2023-12-21] MEDS ORDERED: OYST1TAB PO (08:08)
[2023-12-21] MEDS ORDERED: RISATAB3 PO (08:08)
[2023-12-21] MEDS ORDERED: SENN-186 PO (08:08)
[2023-12-21] MEDS ORDERED: GUAI600T54 PO (08:08)
[2023-12-21] MEDS ORDERED: PRED5TA PO (08:08)
[2023-12-21] MEDS ORDERED: ACET-683 PO (08:08)
[2023-12-21] MEDS ORDERED: ANOR1AER INH (08:08)
[2023-12-21] MEDS ORDERED: THERTAB52 PO (08:08)
[2023-12-21] MEDS ORDERED: VITA100054 PO (08:08)
[2023-12-21] MEDS ORDERED: DOCU100C16 PO (08:08)
[2023-12-21] MEDS ORDERED: HOME MED LIST COMPLETE! XX SCH (08:10)
[2023-12-21] MEDS: IPRATROPIUM 0.5MG/ALBUTEROL 2.5MG INH SOL UD 3ML (DUONEB) NEB SCH (09:48)
[2023-12-21 09:57] LABS: ABG BASE EXCESS 0.4 (-2.0-2.0); ABG HCO3 27.7 MMOL/L (22.0-26.0); ABG O2 SATURATION 99.2 % (95.0-99.0); ABG PARTIAL PRESSURE CO2 54.6 mmHg (35.0-45.0); ABG STANDARD HCO3 24.8 MMOL/L. (22.0-26.0); ABG TOTAL CO2 29.4 MMOL/L (23.0-31.0); ABG pH (ARTERIAL) 7.323 UNITS (7.350-7.450)
[2023-12-21] MEDS: PIPERACILLIN/TAZOBACTAM SOD 4.5 GM in D5W MINI-BAG PLUS 50 ML IV SCH (11:45)
[2023-12-21] MEDS: AZITHROMYCIN INJ 500 MG, VIAL MATE ADAPTER 1 EACH in NS 250 ML IV SCH (12:54)
[2023-12-21] MEDS ORDERED: diazePAM 10 MG TAB PO PRN (16:00)
[2023-12-21 17:14] LABS: CK-MB VALUE MASS 3.8 NG/ML (<3.6)
[2023-12-21 17:16] LABS: BLOOD UREA NITROGEN 29 MG/DL (9-23); CALCIUM LEVEL 8.8 MG/DL (8.3-10.6); CARBON DIOXIDE LEVEL 33 MMOL/L (20-31); CHLORIDE LEVEL 104 MMOL/L (98-107); CREATININE FOR GFR 0.95 MG/DL (0.70-1.30); GLOMERULAR FILTRATION RATE > 60.0 (>42); GLUCOSE, FASTING 143 MG/DL (74-106); POTASSIUM SERUM 4.8 MMOL/L (3.5-5.1); SODIUM LEVEL 140 MMOL/L (136-145)
[2023-12-21 17:17] LABS: CPK CREATINE PHOSPHOKINASE 136 U/L (46-171); MB/CK RELATIVE INDEX 2.79 (< OR =4)
[2023-12-21] MEDS: ACETAMINOPHEN *IV* 1,000 MG in IV 1 EA IV ONE (17:20)
[2023-12-21] MEDS: NS 500 ML IV ONE ×2 (17:44→19:21)
[2023-12-21] MEDS: ASPIRIN 81MG ENTERIC TABLET PO SCH (18:14)
[2023-12-21] MEDS: oxyCODONE 5MG TAB PO PRN (19:23)
[2023-12-21] MEDS: ACETYLCYSTEINE 20% 4 ML VIAL (200MG/ML) INH SCH (20:10)
[2023-12-21] MEDS: PHENYTOIN ER 100 MG CAP PO SCH (20:53)
[2023-12-21] MEDS: DOCUSATE SODIUM 100MG CAPSULE PO SCH (20:54)
[2023-12-21] MEDS: ATORVASTATIN 20 MG TAB PO SCH (20:54)
[2023-12-21] MEDS: OSELTAMIVIR PHOSPHATE 30MG CAPSULE PO SCH (22:18)
[2023-12-21] MEDS: diazePAM 5MG TABLET PO PRN (23:46)
[2023-12-22] VITALS (25 sets, daily range): BP systolic 116–173; BP diastolic 57–88; TEMP 98.9–100.6; O2SAT 86–98
[2023-12-22] MEDS: IPRATROPIUM 0.5MG/ALBUTEROL 2.5MG INH SOL UD 3ML (DUONEB) NEB PRN (00:02)
[2023-12-22] MEDS: methylPREDNISolone 40MG 1ML VIAL IV STA (00:19)
[2023-12-22] MEDS: ALBUTEROL SULFATE 2.5MG/0.5ML INH NEB SOLN NEB STA (00:44)
[2023-12-22 01:48] LABS: ABG BASE EXCESS -0.7 (-2.0-2.0); ABG HCO3 26.9 MMOL/L (22.0-26.0); ABG O2 SATURATION 93.3 % (95.0-99.0); ABG PARTIAL PRESSURE CO2 55.9 mmHg (35.0-45.0); ABG PARTIAL PRESSURE O2 69.1 mmHg (75.0-100.0); ABG STANDARD HCO3 23.8 MMOL/L. (22.0-26.0); ABG TOTAL CO2 28.7 MMOL/L (23.0-31.0); ABG pH (ARTERIAL) 7.301 UNITS (7.350-7.450)
[2023-12-22] MEDS: MAG SULF 1GM/100ML (MAG RUN) 100 ML IV SCH (01:49)
[2023-12-22 04:18] LABS: BASO % 0.5 % (0.0-1.0); HEMATOCRIT 46.9 % (42.0-52.0); HEMOGLOBIN 15.1 g/dl (13.5-17.5); LYMPH # 0.4 10^3/uL (1.5-5.0); MEAN CORPUSCULAR HEMOGLOBIN 32.3 pg (27.0-33.0); MEAN CORPUSCULAR HGB CONC 32.2 g/dl (32.0-36.5); MEAN CORPUSCULAR VOLUME 100.4 fl (80.0-96.0); MONO # 0.8 10^3/uL (0.0-0.8); MONO % 9.8 % (2.0-8.0); NEUTROPHILS # 6.6 10^3/uL (1.5-8.5); NEUTROPHILS % 84.4 % (36.0-66.0); PLATELET COUNT, AUTOMATED 137 10^3/uL (150-450); RED BLOOD COUNT 4.67 10^6/uL (4.30-6.10); WHITE BLOOD COUNT 7.9 10^3/uL (4.0-10.0)
[2023-12-22 04:43] LABS: ALBUMIN 3.1 G/DL (3.2-5.2); ALKALINE PHOSPHATASE 71 U/L (46-116); ALT/SGPT 77 U/L (7.0-40); AST/SGOT 71 U/L (<34); BILIRUBIN,TOTAL 0.8 MG/DL (0.3-1.2); BLOOD UREA NITROGEN 29 MG/DL (9-23); CALCIUM LEVEL 8.6 MG/DL (8.3-10.6); CARBON DIOXIDE LEVEL 30 MMOL/L (20-31); CHLORIDE LEVEL 101 MMOL/L (98-107); CK-MB VALUE MASS 4.2 NG/ML (<3.6); CPK CREATINE PHOSPHOKINASE 188 U/L (46-171); CREATININE FOR GFR 0.89 MG/DL (0.70-1.30); GLOMERULAR FILTRATION RATE > 60.0 (>42); GLUCOSE, FASTING 192 MG/DL (74-106); MAGNESIUM LEVEL 2.6 MG/DL (1.8-2.4); MB/CK RELATIVE INDEX 2.23 (< OR =4); POTASSIUM SERUM 5.1 MMOL/L (3.5-5.1); SODIUM LEVEL 134 MMOL/L (136-145); TOTAL PROTEIN 6.5 G/DL (5.7-8.2)
[2023-12-22] MEDS: methylPREDNISolone 40MG 1ML VIAL IV SCH (05:07)
[2023-12-22 06:08] LABS: ABG BASE EXCESS 1.4 (-2.0-2.0); ABG HCO3 29.7 MMOL/L (22.0-26.0); ABG O2 SATURATION 94.9 % (95.0-99.0); ABG PARTIAL PRESSURE O2 77.1 mmHg (75.0-100.0); ABG STANDARD HCO3 25.7 MMOL/L. (22.0-26.0); ABG TOTAL CO2 31.6 MMOL/L (23.0-31.0); ABG pH (ARTERIAL) 7.297 UNITS (7.350-7.450)
[2023-12-22 06:17] LABS: ABG PARTIAL PRESSURE CO2 62.1 mmHg (35.0-45.0)
[2023-12-22] MEDS: FINASTERIDE 5MG TAB PO SCH (08:12)
[2023-12-22] MEDS: METOPROLOL SUCC *XL* 25MG TAB (TopROL *XL*) PO SCH (08:12)
[2023-12-22] MEDS: ramipriL 1.25 MG CAP PO SCH (08:12)
[2023-12-22] MEDS: ENOXAPARIN 40MG/0.4ML SYRINGE (J1650 PER 10MG) SC SCH (08:12)
[2023-12-22] MEDS: ACETAMINOPHEN TAB 650MG DOSE (2X325MG) PO PRN (08:23)
[2023-12-22] MEDS ORDERED: methylPREDNISolone 40MG 1ML VIAL IV SCH (09:00)
[2023-12-22 10:33] LABS: ABG BASE EXCESS 2.1 (-2.0-2.0); ABG HCO3 29.3 MMOL/L (22.0-26.0); ABG O2 SATURATION 94.8 % (95.0-99.0); ABG PARTIAL PRESSURE CO2 56.4 mmHg (35.0-45.0); ABG PARTIAL PRESSURE O2 73.8 mmHg (75.0-100.0); ABG STANDARD HCO3 26.2 MMOL/L. (22.0-26.0); ABG TOTAL CO2 31.1 MMOL/L (23.0-31.0); ABG pH (ARTERIAL) 7.334 UNITS (7.350-7.450)
[2023-12-22] MEDS: AZITHROMYCIN 250MG TABLET PO SCH (11:06)
[2023-12-22 11:17] LABS: PROCALCITONIN 0.26 ng/ml
[2023-12-22] MEDS: MIRALAX *UNIT DOSE* 17GM PACKET PO SCH (11:59)
[2023-12-22] MEDS: cefTRIAXone SOD 2 GM in D5W MINI-BAG PLUS 50 ML IV SCH (11:59)
[2023-12-22] MEDS: OSELTAMIVIR PHOSPHATE 30MG CAPSULE PO ONE (11:59)
[2023-12-22 15:16] LABS: VENOUS BASE EXCESS 4.4 (-2.0-2.0); VENOUS HCO3 29.8 MMOL/L (23.0-27.0); VENOUS O2 SATURATION 99.7 % (60.0-80.0); VENOUS PARTIAL PRESSURE CO2 46.6 mmHg (38.0-50.0); VENOUS PARTIAL PRESSURE O2 215.9 mmHg (30.0-50.0); VENOUS PH 7.423 UNITS (7.330-7.430); VENOUS STANDARD HCO3 28.5 MMOL/L; VENOUS TOTAL CO2 31.2 MMOL/L (24.0-28.0)
[2023-12-22] MEDS: IBUPROFEN 400MG TAB PO PRN (16:29)
[2023-12-22] MEDS: SENNA 8.6 MG TAB (SENOKOT) PO SCH (20:07)
[2023-12-22] MEDS: OSELTAMIVIR PHOSPHATE 75 MG CAP (TAMIFLU) PO SCH (20:07)
[2023-12-22] MEDS: FAMOTIDINE 40MG/5ML ORAL SUSPENSON 50ML BOTTLE PO SCH (20:09)
[2023-12-23] VITALS (13 sets, daily range): BP systolic 120–163; BP diastolic 56–74; TEMP 98–98.5; O2SAT 89–96
[2023-12-23 05:05] LABS: VENOUS BASE EXCESS 3.7 (-2.0-2.0); VENOUS HCO3 32.4 MMOL/L (23.0-27.0); VENOUS O2 SATURATION 98.3 % (60.0-80.0); VENOUS PARTIAL PRESSURE CO2 66.8 mmHg (38.0-50.0); VENOUS PARTIAL PRESSURE O2 119.6 mmHg (30.0-50.0); VENOUS PH 7.303 UNITS (7.330-7.430); VENOUS STANDARD HCO3 27.8 MMOL/L; VENOUS TOTAL CO2 34.4 MMOL/L (24.0-28.0)
[2023-12-23] MEDS: FAMOTIDINE 20 MG TAB PO SCH (20:08)
[2023-12-24] VITALS: BP 152/70; TEMP 98.6; O2SAT 94
[2023-12-24 04:00] VITALS: BP 148/66; TEMP 98.3; O2SAT 93
[2023-12-24 04:58] LABS: VENOUS BASE EXCESS 4.8 (-2.0-2.0); VENOUS HCO3 33.9 MMOL/L (23.0-27.0); VENOUS O2 SATURATION 86.9 % (60.0-80.0); VENOUS PARTIAL PRESSURE CO2 69.9 mmHg (38.0-50.0); VENOUS PARTIAL PRESSURE O2 54.8 mmHg (30.0-50.0); VENOUS PH 7.303 UNITS (7.330-7.430); VENOUS STANDARD HCO3 28.5 MMOL/L
[2023-12-24 05:04] LABS: BASO % 0.3 % (0.0-1.0); HEMATOCRIT 43.8 % (42.0-52.0); HEMOGLOBIN 14.7 g/dl (13.5-17.5); LYMPH % 21.7 % (24.0-44.0); MEAN CORPUSCULAR HEMOGLOBIN 32.5 pg (27.0-33.0); MEAN CORPUSCULAR HGB CONC 33.6 g/dl (32.0-36.5); MEAN CORPUSCULAR VOLUME 96.7 fl (80.0-96.0); MONO % 13.4 % (2.0-8.0); NEUTROPHILS % 64.3 % (36.0-66.0); PLATELET COUNT, AUTOMATED 115 10^3/uL (150-450); RED BLOOD COUNT 4.53 10^6/uL (4.30-6.10)
[2023-12-24 05:05] LABS: LYMPH # 0.9 10^3/uL (1.5-5.0); MONO # 0.5 10^3/uL (0.0-0.8); NEUTROPHILS # 2.6 10^3/uL (1.5-8.5)
[2023-12-24 05:28] LABS: BLOOD UREA NITROGEN 23 MG/DL (9-23); CALCIUM LEVEL 8.8 MG/DL (8.3-10.6); CARBON DIOXIDE LEVEL 39 MMOL/L (20-31); CHLORIDE LEVEL 97 MMOL/L (98-107); CREATININE FOR GFR 0.69 MG/DL (0.70-1.30); GLOMERULAR FILTRATION RATE > 60.0 (>42); GLUCOSE, FASTING 195 MG/DL (74-106); POTASSIUM SERUM 5.4 MMOL/L (3.5-5.1); SODIUM LEVEL 137 MMOL/L (136-145)
[2023-12-24] MEDS: PATIROMER SORBITEX CALCIUM 8.4 GM POWDER PACKET (VELTASSA) PO STA (06:19)
[2023-12-24 08:00] VITALS: BP 172/77; TEMP 98.3; O2SAT 93
[2023-12-24] MEDS: AZITHROMYCIN 250MG TABLET PO ONE (11:55)
[2023-12-24 12:00] VITALS: BP 160/78; TEMP 98.5; O2SAT 90
[2023-12-24 16:00] VITALS: BP 154/68; TEMP 97.9; O2SAT 94
[2023-12-24 17:43] LABS: BLOOD UREA NITROGEN 23 MG/DL (9-23); CALCIUM LEVEL 9.1 MG/DL (8.3-10.6); CARBON DIOXIDE LEVEL 38 MMOL/L (20-31); CHLORIDE LEVEL 96 MMOL/L (98-107); CREATININE FOR GFR 0.64 MG/DL (0.70-1.30); GLOMERULAR FILTRATION RATE > 60.0 (>42); GLUCOSE, FASTING 156 MG/DL (74-106); POTASSIUM SERUM 4.7 MMOL/L (3.5-5.1); SODIUM LEVEL 135 MMOL/L (136-145)
[2023-12-24 20:00] VITALS: BP 166/80; TEMP 97.3; O2SAT 91
[2023-12-24] MEDS ORDERED: INSULIN LISPRO (NovoLOG) PER UNIT SC SCH (21:00)
[2023-12-25] VITALS (8 sets, daily range): BP systolic 143–180; BP diastolic 65–99; TEMP 96.7–98.3; O2SAT 90–98
[2023-12-25 06:21] LABS: BLOOD UREA NITROGEN 22 MG/DL (9-23); CALCIUM LEVEL 8.7 MG/DL (8.3-10.6); CARBON DIOXIDE LEVEL 40 MMOL/L (20-31); CHLORIDE LEVEL 95 MMOL/L (98-107); CREATININE FOR GFR 0.66 MG/DL (0.70-1.30); GLOMERULAR FILTRATION RATE > 60.0 (>42); GLUCOSE, FASTING 185 MG/DL (74-106); POTASSIUM SERUM 4.7 MMOL/L (3.5-5.1); SODIUM LEVEL 138 MMOL/L (136-145)
[2023-12-25] MEDS ORDERED: INSULIN LISPRO (NovoLOG) PER UNIT SC SCH (07:30)
[2023-12-25 08:09] LABS: VENOUS BASE EXCESS 10.1 (-2.0-2.0); VENOUS HCO3 37.7 MMOL/L (23.0-27.0); VENOUS O2 SATURATION 97.7 % (60.0-80.0); VENOUS PARTIAL PRESSURE CO2 61.3 mmHg (38.0-50.0); VENOUS PARTIAL PRESSURE O2 101.3 mmHg (30.0-50.0); VENOUS PH 7.407 UNITS (7.330-7.430); VENOUS STANDARD HCO3 33.9 MMOL/L; VENOUS TOTAL CO2 39.6 MMOL/L (24.0-28.0)
[2023-12-25] MEDS: BISACODYL 10MG SUPP PR ONE (12:17)
[2023-12-25] MEDS: predniSONE 20 MG TAB PO SCH (12:17)
[2023-12-25] MEDS: SENNA 8.6 MG TAB (SENOKOT) PO ONE (12:17)
[2023-12-25] MEDS: SENNA 8.6 MG TAB (SENOKOT) PO SCH (21:00)
[2023-12-26] VITALS (33 sets, daily range): BP systolic 138–179; BP diastolic 76–97; TEMP 97–98.1; O2SAT 76–100
[2023-12-26 05:27] LABS: VENOUS BASE EXCESS 9.1 (-2.0-2.0); VENOUS HCO3 31.1 MMOL/L (23.0-27.0); VENOUS O2 SATURATION 98.6 % (60.0-80.0); VENOUS PARTIAL PRESSURE O2 116.5 mmHg (30.0-50.0); VENOUS PH 7.579 UNITS (7.330-7.430); VENOUS TOTAL CO2 32.1 MMOL/L (24.0-28.0)
[2023-12-26 06:01] LABS: BLOOD UREA NITROGEN 25 MG/DL (9-23); CALCIUM LEVEL 9.3 MG/DL (8.3-10.6); CARBON DIOXIDE LEVEL 39 MMOL/L (20-31); CHLORIDE LEVEL 95 MMOL/L (98-107); CREATININE FOR GFR 0.79 MG/DL (0.70-1.30); GLOMERULAR FILTRATION RATE > 60.0 (>42); GLUCOSE, FASTING 120 MG/DL (74-106); SODIUM LEVEL 137 MMOL/L (136-145)
[2023-12-26] MEDS: AZITHROMYCIN 250MG TABLET PO SCH (09:29)
[2023-12-26] MEDS: IPRATROPIUM 0.5MG/ALBUTEROL 2.5MG INH SOL UD 3ML (DUONEB) NEB SCH (19:23)
[2023-12-27] VITALS (37 sets, daily range): BP systolic 111–169; BP diastolic 61–88; PULSE 89; TEMP 96.9–97.5; O2SAT 79–95
[2023-12-27 04:51] LABS: VENOUS BASE EXCESS 9.3 (-2.0-2.0); VENOUS HCO3 36.2 MMOL/L (23.0-27.0); VENOUS O2 SATURATION 95.1 % (60.0-80.0); VENOUS PARTIAL PRESSURE CO2 56.5 mmHg (38.0-50.0); VENOUS PARTIAL PRESSURE O2 73.8 mmHg (30.0-50.0); VENOUS PH 7.424 UNITS (7.330-7.430); VENOUS TOTAL CO2 37.9 MMOL/L (24.0-28.0)
[2023-12-27 05:12] LABS: BLOOD UREA NITROGEN 23 MG/DL (9-23); CALCIUM LEVEL 9.2 MG/DL (8.3-10.6); CARBON DIOXIDE LEVEL 37 MMOL/L (20-31); CHLORIDE LEVEL 97 MMOL/L (98-107); CREATININE FOR GFR 0.66 MG/DL (0.70-1.30); GLOMERULAR FILTRATION RATE > 60.0 (>42); GLUCOSE, FASTING 113 MG/DL (74-106); MAGNESIUM LEVEL 1.9 MG/DL (1.8-2.4); POTASSIUM SERUM 4.3 MMOL/L (3.5-5.1); SODIUM LEVEL 138 MMOL/L (136-145)
[2023-12-27] MEDS: IPRATROPIUM 0.5MG/ALBUTEROL 2.5MG INH SOL UD 3ML (DUONEB) NEB SCH (12:50)
[2023-12-27] MEDS: methylPREDNISolone 125MG 2ML VIAL IV SCH (12:53)
[2023-12-27] MEDS: guaiFENesin ER TABLET 600 MG TAB PO SCH (12:53)
[2023-12-28] VITALS (30 sets, daily range): BP systolic 128–160; BP diastolic 64–87; PULSE 75; TEMP 97.2–97.9; O2SAT 88–96
[2023-12-28 05:52] LABS: HEMATOCRIT 45.4 % (42.0-52.0); HEMOGLOBIN 15.4 g/dl (13.5-17.5); MEAN CORPUSCULAR HEMOGLOBIN 32.1 pg (27.0-33.0); MEAN CORPUSCULAR HGB CONC 33.9 g/dl (32.0-36.5); MEAN CORPUSCULAR VOLUME 94.6 fl (80.0-96.0); PLATELET COUNT, AUTOMATED 139 10^3/uL (150-450); WHITE BLOOD COUNT 5.2 10^3/uL (4.0-10.0)
[2023-12-28 06:12] LABS: ALBUMIN 2.8 G/DL (3.2-5.2); ALKALINE PHOSPHATASE 74 U/L (46-116); ALT/SGPT 115 U/L (7.0-40); AST/SGOT 67 U/L (<34); BILIRUBIN,TOTAL 0.8 MG/DL (0.3-1.2); BLOOD UREA NITROGEN 24 MG/DL (9-23); CALCIUM LEVEL 9.1 MG/DL (8.3-10.6); CARBON DIOXIDE LEVEL 36 MMOL/L (20-31); CHLORIDE LEVEL 98 MMOL/L (98-107); GLOMERULAR FILTRATION RATE > 60.0 (>42); GLUCOSE, FASTING 215 MG/DL (74-106); POTASSIUM SERUM 4.7 MMOL/L (3.5-5.1); SODIUM LEVEL 136 MMOL/L (136-145); TOTAL PROTEIN 6.1 G/DL (5.7-8.2)
[2023-12-28] MEDS ORDERED: GLUCAGON INJ 1MG VIAL SC PRN (17:30)
[2023-12-28] MEDS ORDERED: DEXTROSE 50% 50ML SYRINGE IV PRN (17:30)
[2023-12-28] MEDS ORDERED: GLUCOSE 4GM CHEW TABLET PO PRN (17:30)
[2023-12-28] MEDS: INSULIN LISPRO (NovoLOG) PER UNIT SC SCH ×2 (18:38→20:31)
[2023-12-29] VITALS (29 sets, daily range): BP systolic 135–167; BP diastolic 67–87; TEMP 96.4–98; O2SAT 86–98
[2023-12-29 06:12] LABS: HEMATOCRIT 43.8 % (42.0-52.0); HEMOGLOBIN 14.6 g/dl (13.5-17.5); MEAN CORPUSCULAR HEMOGLOBIN 31.9 pg (27.0-33.0); MEAN CORPUSCULAR HGB CONC 33.3 g/dl (32.0-36.5); MEAN CORPUSCULAR VOLUME 95.6 fl (80.0-96.0); PLATELET COUNT, AUTOMATED 146 10^3/uL (150-450); RED BLOOD COUNT 4.58 10^6/uL (4.30-6.10); WHITE BLOOD COUNT 6.8 10^3/uL (4.0-10.0)
[2023-12-29 06:33] LABS: ALBUMIN 2.7 G/DL (3.2-5.2); ALKALINE PHOSPHATASE 79 U/L (46-116); ALT/SGPT 105 U/L (7.0-40); AST/SGOT 57 U/L (<34); BILIRUBIN,TOTAL 0.7 MG/DL (0.3-1.2); BLOOD UREA NITROGEN 24 MG/DL (9-23); CALCIUM LEVEL 8.8 MG/DL (8.3-10.6); CARBON DIOXIDE LEVEL 34 MMOL/L (20-31); CHLORIDE LEVEL 100 MMOL/L (98-107); CREATININE FOR GFR 0.68 MG/DL (0.70-1.30); GLOMERULAR FILTRATION RATE > 60.0 (>42); GLUCOSE, FASTING 116 MG/DL (74-106); POTASSIUM SERUM 4.2 MMOL/L (3.5-5.1); SODIUM LEVEL 137 MMOL/L (136-145); TOTAL PROTEIN 5.8 G/DL (5.7-8.2)
[2023-12-29] MEDS: GLYCOPYRROLATE INJ 0.2 MG/ML 2 ML VIAL NEB SCH (08:00)
[2023-12-29] MEDS: FORMOTEROL FUMARATE 20 MCG/2 ML INHALATION SOLUTION (PERFOROMIST) INH SCH (08:00)
[2023-12-29] MEDS: predniSONE 20 MG TAB PO SCH (09:32)
[2023-12-29] MEDS: IPRATROPIUM 0.5MG/ALBUTEROL 2.5MG INH SOL UD 3ML (DUONEB) NEB PRN (15:40)
[2023-12-30] VITALS (28 sets, daily range): BP systolic 122–168; BP diastolic 68–90; TEMP 97.1–97.7; O2SAT 85–99
[2023-12-30 05:22] LABS: HEMATOCRIT 44.3 % (42.0-52.0); HEMOGLOBIN 15.1 g/dl (13.5-17.5); MEAN CORPUSCULAR HEMOGLOBIN 32.1 pg (27.0-33.0); MEAN CORPUSCULAR HGB CONC 34.1 g/dl (32.0-36.5); MEAN CORPUSCULAR VOLUME 94.3 fl (80.0-96.0); PLATELET COUNT, AUTOMATED 161 10^3/uL (150-450); WHITE BLOOD COUNT 6.7 10^3/uL (4.0-10.0)
[2023-12-30 05:56] LABS: ALKALINE PHOSPHATASE 72 U/L (46-116); ALT/SGPT 108 U/L (7.0-40); AST/SGOT 51 U/L (<34); BILIRUBIN,TOTAL 0.8 MG/DL (0.3-1.2); BLOOD UREA NITROGEN 20 MG/DL (9-23); CARBON DIOXIDE LEVEL 34 MMOL/L (20-31); CHLORIDE LEVEL 104 MMOL/L (98-107); CREATININE FOR GFR 0.64 MG/DL (0.70-1.30); GLOMERULAR FILTRATION RATE > 60.0 (>42); GLUCOSE, FASTING 112 MG/DL (74-106); POTASSIUM SERUM 4.1 MMOL/L (3.5-5.1); SODIUM LEVEL 140 MMOL/L (136-145)
[2023-12-30] MEDS: CEFEPIME HCL 2 GM in D5W MINI-BAG PLUS 50 ML IV SCH (12:54)
[2023-12-31] VITALS (24 sets, daily range): BP systolic 134–152; BP diastolic 68–83; TEMP 96.8–97.8; O2SAT 77–99
[2023-12-31 06:06] LABS: HEMATOCRIT 41.3 % (42.0-52.0); HEMOGLOBIN 13.9 g/dl (13.5-17.5); MEAN CORPUSCULAR HEMOGLOBIN 31.8 pg (27.0-33.0); MEAN CORPUSCULAR HGB CONC 33.7 g/dl (32.0-36.5); MEAN CORPUSCULAR VOLUME 94.5 fl (80.0-96.0); PLATELET COUNT, AUTOMATED 172 10^3/uL (150-450); RED BLOOD COUNT 4.37 10^6/uL (4.30-6.10); WHITE BLOOD COUNT 7.5 10^3/uL (4.0-10.0)
[2023-12-31 06:28] LABS: ALBUMIN 2.6 G/DL (3.2-5.2); ALKALINE PHOSPHATASE 74 U/L (46-116); ALT/SGPT 90 U/L (7.0-40); AST/SGOT 44 U/L (<34); BILIRUBIN,TOTAL 0.7 MG/DL (0.3-1.2); BLOOD UREA NITROGEN 27 MG/DL (9-23); CALCIUM LEVEL 8.8 MG/DL (8.3-10.6); CARBON DIOXIDE LEVEL 32 MMOL/L (20-31); CHLORIDE LEVEL 102 MMOL/L (98-107); CREATININE FOR GFR 0.74 MG/DL (0.70-1.30); GLOMERULAR FILTRATION RATE > 60.0 (>42); GLUCOSE, FASTING 125 MG/DL (74-106); POTASSIUM SERUM 3.9 MMOL/L (3.5-5.1); SODIUM LEVEL 136 MMOL/L (136-145); TOTAL PROTEIN 5.6 G/DL (5.7-8.2)
[2024-01-01] VITALS (11 sets, daily range): BP systolic 137–147; BP diastolic 81–87; TEMP 96.6–97.6; O2SAT 91–97
[2024-01-01 05:36] LABS: HEMATOCRIT 41.8 % (42.0-52.0); HEMOGLOBIN 14.2 g/dl (13.5-17.5); MEAN CORPUSCULAR HEMOGLOBIN 32.1 pg (27.0-33.0); MEAN CORPUSCULAR VOLUME 94.4 fl (80.0-96.0); PLATELET COUNT, AUTOMATED 199 10^3/uL (150-450); RED BLOOD COUNT 4.43 10^6/uL (4.30-6.10); WHITE BLOOD COUNT 8.5 10^3/uL (4.0-10.0)
[2024-01-01 05:58] LABS: ALBUMIN 2.9 G/DL (3.2-5.2); ALKALINE PHOSPHATASE 69 U/L (46-116); ALT/SGPT 97 U/L (7.0-40); AST/SGOT 45 U/L (<34); BILIRUBIN,TOTAL 0.8 MG/DL (0.3-1.2); BLOOD UREA NITROGEN 24 MG/DL (9-23); CALCIUM LEVEL 8.6 MG/DL (8.3-10.6); CARBON DIOXIDE LEVEL 31 MMOL/L (20-31); CHLORIDE LEVEL 104 MMOL/L (98-107); CREATININE FOR GFR 0.76 MG/DL (0.70-1.30); GLOMERULAR FILTRATION RATE > 60.0 (>42); GLUCOSE, FASTING 110 MG/DL (74-106); SODIUM LEVEL 139 MMOL/L (136-145); TOTAL PROTEIN 5.8 G/DL (5.7-8.2)
[2024-01-01] MEDS ORDERED: SENO8.6T5 PO (06:45)
[2024-01-01] MEDS ORDERED: MIRA33506 PO (06:45)
[2024-01-01] MEDS ORDERED: LEVO1TAB39 PO (06:47)
[2024-01-01] MEDS ORDERED: ATRO0.063 INH (12:34)
[2024-01-01] MEDS ORDERED: ADVA230A INH (12:34)
[2024-01-01] MEDS ORDERED: IPRA2IN NEB (14:52)
[2024-01-01] MEDS ORDERED: ALBU2.5V10 INH (14:52)
[2024-01-01] MEDS ORDERED: SYMB16INH INH (14:52)
== END 2024-01-01 15:42 | disposition home health service (06) | DRG 189 ==
LOC: M ED 03:28 → EDBD 03:28 → M ED INP 08:48 → M ICU 09:56 → M PCU 12-25 15:28
PROVIDERS: ADMIT Internal Medicine Critical Care Medicine; ATTEND Internal Medicine
DX: J96.22 Acute and chronic respiratory failure with hypercapnia (principal); E87.29 Other acidosis; J44.1 Chronic obstructive pulmonary disease with (acute) exacerbation; G93.40 Encephalopathy, unspecified; I50.32 Chronic diastolic (congestive) heart failure; M48.54XA Collapsed vertebra, not elsewhere classified, thoracic region, initial encounter for fracture; J10.1 Influenza due to other identified influenza virus with other respiratory manifestations; I25.10 Atherosclerotic heart disease of native coronary artery without angina pectoris; J96.21 Acute and chronic respiratory failure with hypoxia; R33.9 Retention of urine, unspecified; F41.9 Anxiety disorder, unspecified; R73.9 Hyperglycemia, unspecified; Z66 Do not resuscitate; T38.0X5A Adverse effect of glucocorticoids and synthetic analogues, initial encounter; N40.1 Benign prostatic hyperplasia with lower urinary tract symptoms; E87.5 Hyperkalemia; Z95.5 Presence of coronary angioplasty implant and graft; Z87.891 Personal history of nicotine dependence; Z97.0 Presence of artificial eye; Z79.82 Long term (current) use of aspirin; Z79.52 Long term (current) use of systemic steroids; Z79.899 Other long term (current) drug therapy; Z88.5 Allergy status to narcotic agent; Z88.2 Allergy status to sulfonamides; Z88.8 Allergy status to other drugs, medicaments and biological substances; Z99.81 Dependence on supplemental oxygen; Z89.612 Acquired absence of left leg above knee

== ENCOUNTER → 2024-01-06 | Outpatient (REF) | payer MEDICARE ==
[~2024-01-06] MED LIST changes: +ACET-683 PO; +ADVA230A INH; +ANOR1AER INH; +ATRO0.063 INH; +DOCU100C16 PO; +GUAI600T54 PO; +IPRA2IN NEB; +LEVO1TAB39 PO; +MIRA33506 PO; +OYST1TAB PO; +PRED10TA2 PO; +PRED5TA PO; +SENO8.6T5 PO; +SYMB16INH INH; +THERTAB52 PO; +VITA100054 PO
[2024-01-06 17:54] LABS: BASO % 0.5 % (0.0-1.0); EOS % 0.1 % (0.0-3.0); HEMATOCRIT 43.5 % (42.0-52.0); HEMOGLOBIN 14.7 g/dl (13.5-17.5); LYMPH # 1.1 10^3/uL (1.5-5.0); LYMPH % 14.2 % (24.0-44.0); MEAN CORPUSCULAR HEMOGLOBIN 32.2 pg (27.0-33.0); MEAN CORPUSCULAR HGB CONC 33.8 g/dl (32.0-36.5); MEAN CORPUSCULAR VOLUME 95.4 fl (80.0-96.0); MONO # 0.2 10^3/uL (0.0-0.8); MONO % 3.1 % (2.0-8.0); NEUTROPHILS # 6.1 10^3/uL (1.5-8.5); NEUTROPHILS % 81.4 % (36.0-66.0); PLATELET COUNT, AUTOMATED 204 10^3/uL (150-450); RED BLOOD COUNT 4.56 10^6/uL (4.30-6.10); WHITE BLOOD COUNT 7.4 10^3/uL (4.0-10.0)
[2024-01-06 18:06] LABS: HEMOGLOBIN A1c 6.2 % (4.0-6.0)
[2024-01-06 18:23] LABS: ALBUMIN 3.3 G/DL (3.2-5.2); ALKALINE PHOSPHATASE 96 U/L (46-116); ALT/SGPT 89 U/L (7.0-40); AST/SGOT 37 U/L (<34); BILIRUBIN,TOTAL 0.6 MG/DL (0.3-1.2); BLOOD UREA NITROGEN 16 MG/DL (9-23); CALCIUM LEVEL 9.5 MG/DL (8.3-10.6); CARBON DIOXIDE LEVEL 34 MMOL/L (20-31); CHLORIDE LEVEL 99 MMOL/L (98-107); CHOLESTEROL LEVEL 123 MG/DL (<200); CHOLESTEROL RISK RATIO 2.48 (<5); CREATININE FOR GFR 0.67 MG/DL (0.70-1.30); GLOMERULAR FILTRATION RATE > 60.0 (>42); GLUCOSE, FASTING 212 MG/DL (74-106); HDL CHOLESTEROL 49.4 MG/DL (>40); NON-HDL-C 73.6 MG/DL; POTASSIUM SERUM 4.9 MMOL/L (3.5-5.1); SODIUM LEVEL 136 MMOL/L (136-145); TOTAL PROTEIN 6.1 G/DL (5.7-8.2); TRIGLYCERIDES LEVEL 83 MG/DL (<150)
== END ==
LOC: M SFHCCLAY 14:26
PROVIDERS: ATTEND Nurse Practitioner Family
DX: J18.9 Pneumonia, unspecified organism (principal); J44.1 Chronic obstructive pulmonary disease with (acute) exacerbation; R73.03 Prediabetes; Z79.899 Other long term (current) drug therapy

== ENCOUNTER → 2024-01-11 | Outpatient (CLI) | payer MEDICARE | LOC: M CLY 10:17 | PROVIDERS: ATTEND Nurse Practitioner Family | DX: J18.9 Pneumonia, unspecified organism (principal) ==

== ENCOUNTER → 2024-03-28 | Outpatient (CLI) | payer MEDICARE ==
[~2024-03-28] MED LIST changes: -RAMI1CAP22 PO; +RAMI2.5C42 PO
[2024-03-28 15:22] LABS: BASO # 0.1 10^3/uL (0.0-0.2); BASO % 1.4 % (0.0-1.0); EOS # 0.2 10^3/uL (0.0-0.5); EOS % 2.1 % (0.0-3.0); HEMATOCRIT 51.5 % (42.0-52.0); HEMOGLOBIN 17.5 g/dl (13.5-17.5); LYMPH # 1.5 10^3/uL (1.5-5.0); LYMPH % 21.1 % (24.0-44.0); MEAN CORPUSCULAR HEMOGLOBIN 31.8 pg (27.0-33.0); MEAN CORPUSCULAR VOLUME 93.5 fl (80.0-96.0); MONO # 0.8 10^3/uL (0.0-0.8); MONO % 10.6 % (2.0-8.0); NEUTROPHILS # 4.7 10^3/uL (1.5-8.5); NEUTROPHILS % 64.5 % (36.0-66.0); PLATELET COUNT, AUTOMATED 177 10^3/uL (150-450); RED BLOOD COUNT 5.51 10^6/uL (4.30-6.10); WHITE BLOOD COUNT 7.2 10^3/uL (4.0-10.0)
[2024-03-28 15:49] LABS: ALBUMIN 3.8 G/DL (3.2-5.2); ALKALINE PHOSPHATASE 110 U/L (46-116); ALT/SGPT 244 U/L (7.0-40); AST/SGOT 177 U/L (<34); BILIRUBIN,TOTAL 1.1 MG/DL (0.3-1.2); BLOOD UREA NITROGEN 21 MG/DL (9-23); CALCIUM LEVEL 10.1 MG/DL (8.3-10.6); CARBON DIOXIDE LEVEL 32 MMOL/L (20-31); CHLORIDE LEVEL 99 MMOL/L (98-107); CREATININE FOR GFR 0.82 MG/DL (0.70-1.30); GLOMERULAR FILTRATION RATE > 60.0 (>42); GLUCOSE, FASTING 177 MG/DL (74-106); POTASSIUM SERUM 4.2 MMOL/L (3.5-5.1); SODIUM LEVEL 137 MMOL/L (136-145); TOTAL PROTEIN 7.1 G/DL (5.7-8.2)
== END ==
LOC: M PLALAB 12:10
PROVIDERS: ATTEND Nurse Practitioner Family
DX: R06.09 Other forms of dyspnea (principal); J44.1 Chronic obstructive pulmonary disease with (acute) exacerbation; R53.83 Other fatigue

== ENCOUNTER → 2024-04-10 | Outpatient (REF) | payer MEDICARE | LOC: M SFHCCLAY 16:24 | PROVIDERS: ATTEND Nurse Practitioner Family | DX: J44.1 Chronic obstructive pulmonary disease with (acute) exacerbation (principal) ==

== ENCOUNTER → 2024-05-02 | Outpatient (CLI) | payer MEDICARE | LOC: M CLY 14:33 | PROVIDERS: ATTEND Physician Assistant | DX: J44.1 Chronic obstructive pulmonary disease with (acute) exacerbation (principal) ==

== ENCOUNTER → 2024-05-02 | Outpatient (REF) | payer MEDICARE | LOC: M SFHCCLAY 16:42 | PROVIDERS: ATTEND Physician Assistant | DX: J44.1 Chronic obstructive pulmonary disease with (acute) exacerbation (principal) ==

== ENCOUNTER → 2024-05-11 | Outpatient (REF) | payer MEDICARE | LOC: M SFHCCLAY 11:24 | PROVIDERS: ATTEND Physician Assistant | DX: J44.1 Chronic obstructive pulmonary disease with (acute) exacerbation (principal) ==

== ENCOUNTER → 2024-05-31 | Outpatient (CLI) | payer MEDICARE | LOC: M PLAIMG 09:59 | PROVIDERS: ATTEND Nurse Practitioner Family | DX: R93.89 Abnormal findings on diagnostic imaging of other specified body structures (principal); K80.20 Calculus of gallbladder without cholecystitis without obstruction ==

== ENCOUNTER → 2024-05-31 | Outpatient (CLI) | payer MEDICARE | LOC: M RAD 09:15 | PROVIDERS: ATTEND Nurse Practitioner Family | DX: R74.8 Abnormal levels of other serum enzymes (principal); K76.9 Liver disease, unspecified ==

== ENCOUNTER → 2024-06-25 | Outpatient (REF) | payer MEDICARE ==
[2024-06-25 17:47] LABS: ALBUMIN 3.4 G/DL (3.2-5.2); ALKALINE PHOSPHATASE 136 U/L (46-116); ALT/SGPT 63 U/L (7.0-40); AST/SGOT 45 U/L (<34); BILIRUBIN,TOTAL 0.7 MG/DL (0.3-1.2); BLOOD UREA NITROGEN 17 MG/DL (9-23); CALCIUM LEVEL 9.6 MG/DL (8.3-10.6); CARBON DIOXIDE LEVEL 32 MMOL/L (20-31); CHLORIDE LEVEL 100 MMOL/L (98-107); CREATININE FOR GFR 0.79 MG/DL (0.70-1.30); GLOMERULAR FILTRATION RATE > 60.0 (>42); GLUCOSE, FASTING 229 MG/DL (74-106); POTASSIUM SERUM 4.1 MMOL/L (3.5-5.1); SODIUM LEVEL 136 MMOL/L (136-145); TOTAL PROTEIN 6.6 G/DL (5.7-8.2)
== END ==
LOC: M SFHCCLAY 10:51
PROVIDERS: ATTEND Nurse Practitioner Family
DX: R74.8 Abnormal levels of other serum enzymes (principal)

== ENCOUNTER → 2024-06-27 | Outpatient (CLI) | payer MEDICARE ==
[~2024-06-27] MED LIST changes: +GASTROGRAFIN SOLUTION 30ML ONE; +ISOVUE-370 76% 100ML VIAL ONE
== END ==
LOC: M PLAIMG 11:37
PROVIDERS: ATTEND Nurse Practitioner Family
DX: K76.9 Liver disease, unspecified (principal); K80.20 Calculus of gallbladder without cholecystitis without obstruction; J43.9 Emphysema, unspecified
CPT/HCPCS: 74177; Q9963; Q9967

== ENCOUNTER → 2024-07-26 | Outpatient (CLI) | payer MEDICARE ==
[~2024-07-26] MED LIST changes: -GASTROGRAFIN SOLUTION 30ML ONE; -ISOVUE-370 76% 100ML VIAL ONE; +PROHANCE 279.3MG/ML 15ML VIAL As Ordered ONE; +PROHANCE 279.3MG/ML 5ML VIAL As Ordered ONE
== END ==
LOC: M RAD 15:01
PROVIDERS: ATTEND Nurse Practitioner Family
DX: K80.20 Calculus of gallbladder without cholecystitis without obstruction (principal); J06.9 Acute upper respiratory infection, unspecified; K76.9 Liver disease, unspecified; N32.9 Bladder disorder, unspecified
CPT/HCPCS: 74183; 87486; 87581; 87633; 87798; A9576

== ENCOUNTER → 2024-08-01 | Outpatient (CLI) | payer MEDICARE ==
[~2024-08-01] MED LIST changes: -PROHANCE 279.3MG/ML 15ML VIAL As Ordered ONE; -PROHANCE 279.3MG/ML 5ML VIAL As Ordered ONE
== END ==
LOC: M CLY 11:09
PROVIDERS: ATTEND Nurse Practitioner Family
DX: J44.1 Chronic obstructive pulmonary disease with (acute) exacerbation (principal)

== ENCOUNTER → 2024-08-01 | Outpatient (REF) | payer MEDICARE ==
[2024-08-01 18:06] LABS: BLOOD UREA NITROGEN 21 MG/DL (9-23); CALCIUM LEVEL 9.5 MG/DL (8.3-10.6); CARBON DIOXIDE LEVEL 35 MMOL/L (20-31); CHLORIDE LEVEL 94 MMOL/L (98-107); CREATININE FOR GFR 0.76 MG/DL (0.70-1.30); GLOMERULAR FILTRATION RATE > 60.0 (>42); GLUCOSE, FASTING 153 MG/DL (74-106); POTASSIUM SERUM 3.6 MMOL/L (3.5-5.1); SODIUM LEVEL 135 MMOL/L (136-145)
== END ==
LOC: M SFHCCLAY 11:02
PROVIDERS: ATTEND Nurse Practitioner Family
DX: J44.9 Chronic obstructive pulmonary disease, unspecified (principal); I25.10 Atherosclerotic heart disease of native coronary artery without angina pectoris; J18.9 Pneumonia, unspecified organism

== ENCOUNTER → 2024-08-31 | Outpatient (CLI) | payer MEDICARE | LOC: M RAD 11:32 | PROVIDERS: ATTEND Nurse Practitioner Family | DX: N32.9 Bladder disorder, unspecified (principal) ==

== ENCOUNTER → 2024-09-05 | Outpatient (REF) | payer MEDICARE ==
[2024-09-05 11:57] LABS: APPEARANCE, URINE CLEAR (CLEAR); BACTERIA, URINE AUTO NEGATIVE (NEGATIVE); BILIRUBIN, URINE AUTO NEGATIVE (NEGATIVE); BLOOD, URINE BLOOD NEGATIVE (NEGATIVE); COLOR, URINE YELLOW (YELLOW); GLUCOSE, URINE (UA) AUTO NEGATIVE (NEGATIVE); KETONE, URINE AUTO NEGATIVE (NEGATIVE); LEUKOCYTE ESTERASE, URINE AUTO NEGATIVE (NEGATIVE); NITRITE, URINE AUTO NEGATIVE (NEGATIVE); PROTEIN, URINE AUTO NEGATIVE (NEGATIVE); RBC, URINE AUTO 0 /HPF (0-3); SPECIFIC GRAVITY URINE AUTO 1.019 (1.002-1.035); SQUAMOUS EPITHELIAL CELL UR AU 0 /HPF (0-6); UROBILINOGEN, URINE AUTO 0.2 mg/dL (0.0-2.0); WBC, URINE AUTO 0 /HPF (0-3)
== END ==
LOC: M SFHCCLAY 09-04 11:26
PROVIDERS: ATTEND Nurse Practitioner Family
DX: R35.0 Frequency of micturition (principal)

== ENCOUNTER → 2024-11-19 | Outpatient (REF) | payer MEDICARE ==
[2024-11-19 18:08] LABS: BASO # 0.1 10^3/uL (0.0-0.2); BASO % 1.4 % (0.0-1.0); EOS # 0.2 10^3/uL (0.0-0.5); EOS % 2.9 % (0.0-3.0); HEMATOCRIT 47.5 % (42.0-52.0); LYMPH # 1.4 10^3/uL (1.5-5.0); MEAN CORPUSCULAR HEMOGLOBIN 32.7 pg (27.0-33.0); MEAN CORPUSCULAR HGB CONC 33.7 g/dl (32.0-36.5); MEAN CORPUSCULAR VOLUME 96.9 fl (80.0-96.0); MONO # 0.6 10^3/uL (0.0-0.8); MONO % 9.8 % (2.0-8.0); NEUTROPHILS # 4.2 10^3/uL (1.5-8.5); NEUTROPHILS % 64.6 % (36.0-66.0); PLATELET COUNT, AUTOMATED 142 10^3/uL (150-450); WHITE BLOOD COUNT 6.5 10^3/uL (4.0-10.0)
[2024-11-19 18:43] LABS: ALBUMIN 3.4 G/DL (3.2-5.2); ALKALINE PHOSPHATASE 124 U/L (40-129); ALT/SGPT 90 U/L (7.0-40); AST/SGOT 61 U/L (<34); BILIRUBIN,TOTAL 0.6 MG/DL (0.3-1.2); BLOOD UREA NITROGEN 17 MG/DL (9-23); CALCIUM LEVEL 9.3 MG/DL (8.3-10.6); CARBON DIOXIDE LEVEL 33 MMOL/L (20-31); CHLORIDE LEVEL 97 MMOL/L (98-107); CHOLESTEROL LEVEL 116 MG/DL (<200); CHOLESTEROL RISK RATIO 2.51 (<5); CREATININE FOR GFR 0.71 MG/DL (0.70-1.30); GLOMERULAR FILTRATION RATE > 60.0 (>42); GLUCOSE, FASTING 196 MG/DL (74-106); HDL CHOLESTEROL 46.1 MG/DL (>40); LDL CHOLESTEROL 46.1 MG/DL (<100); NON-HDL-C 69.9 MG/DL; POTASSIUM SERUM 3.6 MMOL/L (3.5-5.1); SODIUM LEVEL 136 MMOL/L (136-145); TOTAL PROTEIN 6.7 G/DL (5.7-8.2); TRIGLYCERIDES LEVEL 119 MG/DL (<150)
[2024-11-19 18:45] LABS: PHENYTOIN (DILANTIN) 11.2 UG/ML (10.0-20.0)
== END ==
LOC: M SFHCCLAY 10:05
PROVIDERS: ATTEND Nurse Practitioner Family
DX: J44.9 Chronic obstructive pulmonary disease, unspecified (principal); I25.10 Atherosclerotic heart disease of native coronary artery without angina pectoris; G40.909 Epilepsy, unspecified, not intractable, without status epilepticus; E78.00 Pure hypercholesterolemia, unspecified; I10 Essential (primary) hypertension

== ENCOUNTER → 2025-06-25 | Outpatient (REF) | payer MEDICARE ==
[~2025-06-25] MED LIST changes: +CHOL25CA2 PO; -FLOM0.4C39 PO; +SENN-225 PO; -SENO8.6T5 PO; +TAMS-18 PO; -VITA100054 PO
== END ==
LOC: M SFHCCLAY 10:50
PROVIDERS: ATTEND Nurse Practitioner Family
DX: Z53.9 Procedure and treatment not carried out, unspecified reason (principal)

== ENCOUNTER → 2025-07-05 | Outpatient (CLI) | payer MEDICARE | LOC: M RAD 12:16 | PROVIDERS: ATTEND Internal Medicine Pulmonary Disease | DX: Z87.891 Personal history of nicotine dependence (principal) ==

== ENCOUNTER → 2025-09-11 | Outpatient (REF) | payer MEDICARE ==
[~2025-09-11] MED LIST changes: -CHOL25CA2 PO; +D3 H10003 PO
== END ==
LOC: M LAB REF 16:58
PROVIDERS: ATTEND Internal Medicine Pulmonary Disease
DX: J44.9 Chronic obstructive pulmonary disease, unspecified (principal)